=== PATIENT | male | born 1945 | race Caucasian/White ===

== ENCOUNTER 2024-08-21 11:46 | Inpatient (IN) | payer MEDICARE ==
[2024-08-21 12:26] LABS: Basophils # (A) 0.05 10*3/uL (0.00-0.10); Basophils % (A) 0.6 %; Eosinophils # (A) 0.24 10*3/uL (0.04-0.35); Eosinophils % (A) 3.1 %; HCT 41.3 % (39.6-50.0); Lymphocytes # (A) 1.52 10*3/uL (0.90-5.00); Lymphocytes % (A) 19.3 %; MCH 32.5 pg (27.0-32.0); MCHC 36.3 g/dL (32.0-37.0); MCV 89.6 fL (80.0-97.0); Monocytes # (A) 0.55 10*3/uL (0.20-1.00); Neutrophils # (A) 5.44 10*3/uL (1.80-7.70); Neutrophils % (A) 69.2 %; Platelet Count 188 10*3/uL (140-440); RBC 4.61 10*6/uL (4.40-5.60); RDW 13.1 % (11.5-14.5); WBC 7.86 10*3/uL (4.50-10.00)
[2024-08-21 12:40] LABS: ALT 13 U/L (4-49); AST 17 U/L (17-59); African American GFR (CKD) >90 (>60 ml/min/1.73 sqM); Albumin 3.7 g/dL (3.5-5.0); Alkaline Phosphatase 109 U/L (38-126); Anion Gap 7 mmol/L; Blood Urea Nitrogen 17 mg/dL (9-20); Calcium 9.1 mg/dL (8.4-10.2); Carbon Dioxide 27 mmol/L (22-30); Chloride 104 mmol/L (98-107); Glucose 113 mg/dL (74-99); Magnesium 2.1 mg/dL (1.6-2.3); Non-African American GFR(CKD) 84 (>60 ml/min/1.73 sqM); Potassium 4.3 mmol/L (3.5-5.1); Sodium 138 mmol/L (137-145); Total Bilirubin 0.8 mg/dL (0.2-1.3); Total Protein 6.5 g/dL (6.3-8.2)
--- NOTE | 2024-08-21 12:50 | ED ---
General Adult HPI - General Chief complaint: Neuro Symptoms/Deficit Stated complaint: R side numbness Time Seen by Provider: 08/21/24 12:28 Source: patient, family, RN notes reviewed Mode of arrival: ambulatory Limitations: no limitations - History of Present Illness Initial comments: Patient is a 78-year-old male present to the emergency department with concerns with right sided arm and leg numbness. Patient states there may be some heaviness as well. Symptoms have slowly progressed over the past 10 days or so. No headache. No confusion. No speech problems. No history of similar symptoms previously. No neck or back pain. - Related Data Home Medications Medication Instructions Recorded Confirmed Benzonatate [Tessalon Perles] 100 mg PO TID PRN 08/21/24 08/21/24 Fluticasone Nasal [place] [Flonase 2 spr EA NOSTRIL DAILY 08/21/24 08/21/24 Nasal [place]] Furosemide [Lasix] 20 mg PO BID-W/MEALS 08/21/24 08/21/24 HYDROcodone/APAP 7.5-325MG [[place] 1 tab PO BID PRN 08/21/24 08/21/24 7.5-325] Meloxicam [Mobic] 15 mg PO DAILY 08/21/24 08/21/24 Metoprolol Succinate (ER) [Toprol 25 mg PO DAILY 08/21/24 08/21/24 Xl] Omeprazole 40 mg PO HS 08/21/24 08/21/24 Pravastatin Sodium [Pravachol] 20 mg PO HS 08/21/24 08/21/24 Pregabalin [Lyrica] 100 mg PO TID 08/21/24 08/21/24 traMADol HCL 100 mg PO BID 08/21/24 08/21/24 Allergies Allergy/AdvReac Type Severity Reaction Status Date / Time bee venom protein (honey bee) Allergy "pass out" Verified 08/21/24 14:04 Review of Systems ROS Statement: Those systems with pertinent positive or pertinent negative responses have been documented in the HPI. ROS Other: All systems not noted in ROS Statement are negative. Constitutional: Denies: fever Eyes: Denies: eye pain ENT: Denies: ear pain Respiratory: Denies: cough Cardiovascular: Denies: chest pain Gastrointestinal: Denies: abdominal pain Neurological: Reports: as per HPI Past Medical History Past Medical History: Coronary Artery Disease (CAD), Chest Pain / Angina, Heart Failure History of Any Multi-Drug Resistant Organisms: None Reported Past Surgical History: Joint Replacement, Orthopedic Surgery Additional Past Surgical History / Comment(s): Nose, tongue Past Psychological History: No Psychological Hx Reported Smoking Status: Never smoker Past Alcohol Use History: None Reported Past Drug Use History: None Reported General Exam Limitations: no limitations General appearance: alert, in no apparent distress Head exam: Present: atraumatic Eye exam: Present: normal appearance, PERRL, EOMI ENT exam: Present: normal oropharynx Neck exam: Present: normal inspection Respiratory exam: Present: normal lung sounds bilaterally Cardiovascular Exam: Present: regular rate, irregular rhythm GI/Abdominal exam: Present: soft. Absent: tenderness Extremities exam: Present: normal inspection Neurological exam: Present: alert, oriented X3, CN II-XII intact Expanded Neurological exam: Present: protecting the airway Patient oriented to: Present: person, place, time Speech: Present: fluid speech Cranial nerves: EOM's Intact: Normal, Facial Sensation: Normal Cerebellar function: Finger to Nose: Normal Sensory exam: Upper Extremity Light Touch: Normal, Lower Extremity Light Touch: Normal Motor strength exam: RUE: 5, LUE: 5, RLE: 4, LLE: 5 Eye Response: (4) open spontaneously Motor Response: (6) obeys commands Verbal Response: (5) oriented Psychiatric exam: Present: normal affect, normal mood Skin exam: Present: normal color Course Vital Signs 08/21/24 08/21/24 08/21/24 11:55 12:49 13:17 Temperature 98.2 F 97.8 F Pulse Rate 66 83 76 Respiratory 20 16 16 Rate Blood Pressure 151/71 104/58 110/96 O2 Sat by Pulse 96 96 95 Oximetry 08/21/24 08/21/24 13:29 13:32 Temperature Pulse Rate 75 79 Respiratory 18 18 Rate Blood Pressure 109/66 112/73 O2 Sat by Pulse 96 95 Oximetry EKG Findings - EKG Results: EKG: interpreted by ERMD (Left axis. Low QRS voltage. Nonspecific T waves. Poor R wave progression.) EKG shows: atrial fibrillation Medical Decision Making - Medical Decision Making Was pt. sent in by a medical professional or institution (, PA, [employer], urgent care, hospital, or [facility]...) When possible be specific @ -No Did you speak to anyone other than the patient for history (EMS, parent, family, police, friend...)? What history was obtained from this source @ - is present helps right history including patient's past history and onset of symptoms Did you review nursing and triage notes (agree or disagree)? Why? @ -I reviewed and agree with nursing and triage notes Were old charts reviewed (outside hosp., previous admission, EMS record, old EKG, old radiological studies, urgent care reports/EKG's, [facility] records)? Report findings @ -No old charts were reviewed Differential Diagnosis (chest pain, altered mental status, abdominal pain women, abdominal pain men, vaginal bleeding, weakness, fever, dyspnea, syncope, headache, dizziness, GI bleed, back pain, seizure, CVA, palpatations, mental health, musculoskeletal)? @ -Differential Weakness: Hypoglycemia, shock, sepsis, hyponatremia, anemia, infection, MD, ETOH, adverse medicine reaction, overdose, stroke, this is not meant to be an all-inclusive l ist. EKG interpreted by me (3pts min.). @ -As above X-rays interpreted by me (1pt min.). @ -Chest x-ray shows no acute process CT interpreted by me (1pt min.). @ -CT scan of the brain without acute abnormality U/S interpreted by me (1pt. min.). @ -None done What testing was considered but not performed or refused? (CT, X-rays, U/S, labs)? Why? @ -None What meds were considered but not given or refused? Why? @ -Patient is not a candidate for tenecteplase secondary to last known well greater than 4.5 hours. Did you discuss the management of the patient with other professionals (professionals i.e. , PA, [employer], lab, RT, psych nurse, social professionals, trial lawyer, teacher, administrative services officer, block and case maker)? Give summary @ -Case was discussed with Dr. Bradley who will admit covering Dr. Elder me Was smoking cessation discussed for >3mins.? @ -No Was critical care preformed (if so, how long)? @ -No Were there social determinants of health that impacted care today? How? (Homelessness, low income, unemployed, alcoholism, drug addiction, transportation, low edu. Level, literacy, decrease access to med. care, nursing home, rehab)? @ -No Was there de-escalation of care discussed even if they declined (Discuss DNR or withdrawal of care, Hospice)? DNR status @ -No What co-morbidities impacted this encounter? (DM, HTN, Smoking, COPD, CAD, Cancer, CVA, ARF, Chemo, Hep., AIDS, mental health diagnosis, sleep apnea, morbid obesity)? @ -History of A-fib Was patient admitted / discharged? Hospital course, mention meds given and route, prescriptions, significant lab abnormalities, going to OR and other pertinent info. @ -Patient presents with progressive right leg weakness over 7 to 10 days. Etiology unclear however there is concern for mild stroke symptoms. Patient will be admitted with neuro consult. Admission orders written. Patient and family updated. Undiagnosed new problem with uncertain prognosis? @ -No Drug Therapy requiring intensive monitoring for toxicity (Heparin, Nitro, Insu jarret, Cardizem)? @ -No Were any procedures done? @ -No Diagnosis/symptom? @ -Leg weakness Acute, or Chronic, or Acute on Chronic? @ -Acute Uncomplicated (without systemic symptoms) or Complicated (systemic symptoms)? @ -Default Side effects of treatment? @ -No Exacerbation, Progression, or Severe Exacerbation? @ -No Poses a threat to life or bodily function? How? (Chest pain, USA, MD, pneumonia, PE, COPD, DKA, ARF, appy, cholecystitis, CVA, Diverticulitis, Homicidal, Suicidal, threat to staff... and all critical care pts) @ -No - Lab Data Result diagrams: 08/21/24 11:53 08/21/24 11:53 Lab Results 08/21/24 08/21/24 08/21/24 Range/Units 11:53 11:53 11:53 WBC 7.86 (4.50-10.00) 10*3/uL RBC 4.61 (4.40-5.60) 10*6/uL Hgb 15.0 (13.0-17.0) g/dL Hct 41.3 (39.6-50.0) % MCV 89.6 (80.0-97.0) fL MCH 32.5 H (27.0-32.0) pg MCHC 36.3 (32.0-37.0) g/dL Plt Count 188 (140-440) 10*3/uL MPV 10.0 (9.5-12.2) fL Immature Gran % (Auto) 0.8 % Neutrophils % 69.2 % Lymphocytes % 19.3 % Monocytes % 7.0 % Eosinophils % 3.1 % Basophils % 0.6 % Immature Gran # 0.06 H (0.00-0.04) 10*3/uL Neutrophils # 5.44 (1.80-7.70) 10*3/uL Lymphocytes # 1.52 (0.90-5.00) 10*3/uL Monocytes # 0.55 (0.20-1.00) 10*3/uL Eosinophils # 0.24 (0.04-0.35) 10*3/uL Basophils # 0.05 (0.00-0.10) 10*3/uL PT 10.8 (10.0-12.5) sec INR 1.0 (<1.2) APTT 24.6 (22.0-30.0) sec Sodium 138 (137-145) mmol/L Potassium 4.3 (3.5-5.1) mmol/L Chloride 104 (98-107) mmol/L Carbon Dioxide 27 (22-30) mmol/L Anion Gap 7 mmol/L BUN 17 (9-20) mg/dL Creatinine 0.83 (0.66-1.25) mg/dL Est GFR (CKD-EPI)AfAm >90 (>60 ml/min/1.73 sqM) Est GFR (CKD-EPI)NonAf 84 (>60 ml/min/1.73 sqM) Glucose 113 H (74-99) mg/dL Calcium 9.1 (8.4-10.2) mg/dL Magnesium 2.1 (1.6-2.3) mg/dL Total Bilirubin 0.8 (0.2-1.3) mg/dL AST 17 (17-59) U/L ALT 13 (4-49) U/L Alkaline Phosphatase 109 (38-126) U/L Creatine Kinase (55-170) U/L Troponin I (0.000-0.034) ng/mL Total Protein 6.5 (6.3-8.2) g/dL Albumin 3.7 (3.5-5.0) g/dL 08/21/24 08/21/24 08/21/24 Range/Units 11:53 12:51 12:51 WBC (4.50-10.00) 10*3/uL RBC (4.40-5.60) 10*6/uL Hgb (13.0-17.0) g/dL Hct (39.6-50.0) % MCV (80.0-97.0) fL MCH (27.0-32.0) pg MCHC (32.0-37.0) g/dL Plt Count (140-440) 10*3/uL MPV (9.5-12.2) fL Immature Gran % (Auto) % Neutrophils % % Lymphocytes % % Monocytes % % Eosinophils % % Basophils % % Immature Gran # (0.00-0.04) 10*3/uL Neutrophils # (1.80-7.70) 10*3/uL Lymphocytes # (0.90-5.00) 10*3/uL Monocytes # (0.20-1.00) 10*3/uL Eosinophils # (0.04-0.35) 10*3/uL Basophils # (0.00-0.10) 10*3/uL PT 11.2 (10.0-12.5) sec INR 1.0 (<1.2) APTT (22.0-30.0) sec Sodium (137-145) mmol/L Potassium (3.5-5.1) mmol/L Chloride (98-107) mmol/L Carbon Dioxide (22-30) mmol/L Anion Gap mmol/L BUN (9-20) mg/dL Creatinine (0.66-1.25) mg/dL Est GFR (CKD-EPI)AfAm (>60 ml/min/1.73 sqM) Est GFR (CKD-EPI)NonAf (>60 ml/min/1.73 sqM) Glucose (74-99) mg/dL Calcium (8.4-10.2) mg/dL Magnesium (1.6-2.3) mg/dL Total Bilirubin (0.2-1.3) mg/dL AST (17-59) U/L ALT (4-49) U/L Alkaline Phosphatase (38-126) U/L Creatine Kinase 40 L (55-170) U/L Troponin I <0.012 (0.000-0.034) ng/mL Total Protein (6.3-8.2) g/dL Albumin (3.5-5.0) g/dL Disposition Clinical Impression: Right leg weakness Disposition: ADMITTED IP TO THIS HOSP Is patient prescribed a controlled substance at d/c from ED?: No Referrals: Victorino Medrano DO [Primary Care Provider] - 1-2 days Time of Disposition: 15:25
[2024-08-21 12:51] LABS: Partial Thromboplastin Time 24.6 sec (22.0-30.0); Prothrombin Time 10.8 sec (10.0-12.5)
--- NOTE | 2024-08-21 13:10 | XR ---
EXAMINATION TYPE: XR chest 2V DATE OF EXAM: 08/21/2024 1:05 PM COMPARISON: None CLINICAL INDICATION: Male, 78 years old with history of pain, , TECHNIQUE: AP and lateral views FINDINGS: Heart mildly enlarged. Interstitial prominence on the AP view may be due to technique and large body habitus. Otherwise, no consolidation or pleural effusion is seen. The left base is underpenetrated on the frontal view. IMPRESSION: 1. Mild cardiomegaly. 2. Interstitial prominence may be technical due to AP technique and large body habitus. Correlate to exclude mild pulmonary vascular congestion. [facility], Workstation: [facility], 08/21/2024 1:08 PM
--- NOTE | 2024-08-21 13:11 | CT ---
EXAMINATION TYPE: CT brain wo con CT DLP: 1245.4 mGycm, Automated exposure control for dose reduction was used. DATE OF EXAM: 08/21/2024 1:04 PM COMPARISON: MRI brain 01/04/2011 CLINICAL INDICATION:Male, 78 years old with history of Neuro deficit, acute, stroke suspected, Mental status changes. TECHNIQUE: Brain: Multiple axial CT images of the brain were obtained without IV contrast. . Coronal and sagitta l reformats reviewed. FINDINGS: Brain: Extra-axial spaces: No abnormal extra-axial fluid collections. Ventricular system: Within normal limits Cerebral parenchyma: Cerebral atrophy. No acute intraparenchymal hemorrhage or mass effect. The whelan -white junction is well differentiated. Cerebellum: Unremarkable. Mass effect: No evidence of midline shift. Intracranial vasculature: unremarkable Soft tissues: Normal. Calvarium/osseous structures: No depressed skull fracture. Paranasal sinuses and mastoid air cells: The mastoid air cells are clear. Left maxillary sinus 1.8 cm mucous retention cyst. Minimal mucosal thickening of the ethmoid sinuses. Visualized orbits: Bilateral aphakia IMPRESSION: No acute intracranial process. [facility], , 08/21/2024 1:08 PM
[2024-08-21 13:49] LABS: Prothrombin Time 11.2 sec (10.0-12.5)
[2024-08-21] MEDS: PREGABALIN 100 MG CAP PO SCH (15:58)
[2024-08-21] MEDS: ASPIRIN 325 MG TAB PO STA (15:58)
--- NOTE | 2024-08-21 16:14 | US ---
EXAMINATION TYPE: US carotid duplex BILAT DATE OF EXAM: 08/21/2024 COMPARISON: NONE CLINICAL INDICATION: Male, 78 years old with history of Stenosis; TECHNIQUE: Grayscale, color Doppler and spectral Doppler evaluation of the bilateral carotid systems and vertebral arteries. Indirect Doppler criteria was utilized. FINDINGS: EXAM MEASUREMENTS: RIGHT: Peak Systolic Velocity (PSV) cm/sec ----- Right CCA: 66.9 ----- Right ICA: 56.7 ----- Right ECA: 102.7 ICA/CCA ratio: 0.8 RIGHT: End Diastole cm/sec ----- Right CCA: 16.4 ----- Right ICA: 15.4 ----- Right ECA: 4.2 LEFT: Peak Systolic Velocity (PSV) cm/sec ----- Left CCA: 68.4 ----- Left ICA: 84.9 ----- Left ECA: 99.1 ICA/CCA ratio: 1.2 LEFT: End Diastole cm/sec ----- Left CCA: 19.9 ----- Left ICA: 31.8 ----- Left ECA: 7.2 VERTEBRALS (direction of flow): Right Vertebral: Antegrade Left Vertebral: Antegrade Rhythm: Arrhythmia IMPRESSION: Arrhythmia noted by technologist during real-time scanning. Consider 24-hour Holter ritchie toring if this is not known finding. Right: No hemodynamically significant stenosis. Left: No hemodynamically significant stenosis. Criteria for Assigning % of Stenosis / Diameter reduction (Estimation based on the indirect measurements of the internal carotid artery velocities (ICA PSV). 1. Normal (no stenosis)=ICA PSV < 180 cm/s: ratio < 2.0: ICA EDV<40 cm/s. 2. Less than 50% stenosis=ICA PSV < 180 cm/s: ratio < 2.0: ICA EDV<40 cm/s. 3. 50 to 69% stenosis=ICA PSV of 180 to 230 cm/s: ration 2.0 ? 4.0: ICA EDV 40-100 cm/s. PSV 125-180 cm/sec and ICA/CCA PSV Ratio ? 2.0 is also consistent with 50-69% stenosis 4. Greater than 70% stenosis to near occlusion= ICA PSV > 230 cm/s: ratio > 4.0: ICA EDV > 100 cm/s. 5. Near occlusion= ICA PSV velocities may be low or undetectable: variable ratio and ICA EDV. 6. Total occlusion=unable to detect flow. [facility], , 08/21/2024 4:12 PM
--- NOTE | 2024-08-21 17:24 | P.HPIM ---
History of Present Illness H&P Date: 08/21/24 Patient is a 78-year-old male with a history of coronary artery disease, chest pain and heart failure presents to the ER with right-sided arm and leg numbness over the past 10 days. Patient also reports some heaviness as well. Patient was seen at bedside. He reports right-sided arm and leg numbness that started about 10 days ago and it has gotten progressively worse over the past few days. Patient did recently recover from an upper respiratory infection about 2 weeks ago. He also reports right lower extremity heaviness and weakness and has difficulty moving his right leg. Patient has never had sensations like this before. 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 No strokes in the past. Patient also has a history of heart failure and atrial fibrillation which he reports taking metoprolol succinate 25 mg daily for. Patient denies any chest pain, shortness of breath, fever or chills, nausea or vomiting, abdominal pain, diarrhea or constipation, lower extremity swelling or pain. ED documentation reviewed. In the ED patient was treated with aspirin 325 mg p.o. x 1 Vitals on admission temperature 97.8, pulse rate 79, respiratory rate 18, blood pressure 112/73, O2 sat 95% on room air CXR shows mild cardiomegaly and interstitial prominence may be technical due to AP technique and large body habitus. Correlate to exclude mild pulmonary vascular congestion. CT of brain shows no acute intracranial process Ultrasound of bilateral carotids showed no hemodynamically significant stenosis in the right or left carotids. Arrhythmia noted by the technologist during real-time scanning. Consider 24-hour Holter monitoring if this is not a normal finding. Labs on admission show WBC 7.86, hemoglobin 15, hematocrit 41.3, platelet 188, sodium 138, potassium 4.3, chloride 104, BUN 17, creatinine 0.83, glucose 113, AST 17, ALT 13, alkaline phosphatase 109, creatinine kinase 40, troponin less than 0.012 Review of systems: Pertinent positives and negatives as discussed in HPI, a complete review of systems was performed and all other systems are negative. PMH: History of coronary artery disease, heart failure, history of chest pain PSH: Joint replacement and orthopedic surgery FMH: No pertinent family history Allergies: Bee venom protein Social history: Tobacco: Never smoker Alcohol: None reported Recreational drugs: No recent drug use Travel: No travel history Sick contacts: No sick contacts Physical examination: Vital signs reviewed General: nontoxic, no distress, appears at stated age Derm: warm, dry, intact Head: atraumatic, normocephalic, symmetric Eyes: EOMI, anicteric sclera Mouth: no lip lesion, mucus membranes moist Cardiovascular: S1 S2 reg, no murmur Lungs: CTA bilateral, no rhonchi, no rales, no accessory muscle use Abdominal: soft, non-tender to palpation Extremities: No cyanosis, clubbing, or pedal edema. Right upper extremity 4 out of 5 and right lower extremity 4 out of 5 in terms of muscle strength. Left upper extremity 5 out of 5, left lower extremity 5 out of 5 in terms of strength. Sensation to light touch similar on both upper and lower extremity. Neuro: Alert, Oriented, Gross neurological examination did not reveal any focal deficits. Intact cranial nerves. Psych: well appearing, appropriate affect Assessment/Plan: Patient is 78-year-old male with a history of coronary artery disease, chest pain, heart failure presents to the ER with right sided arm and leg numbness over the past 10 days. Patient will be admitted to internal medicine service for further evaluation. Active: #. Right sided arm and leg numbness #. Likely due to acute ischemic stroke Cardiac monitoring Aspirin 325 mg one-time Aspirin 81 mg daily Allow permissive hypertension Ordered brain MRI without contrast Consult neurology Fall precautions Consult PT, OT and speech therapy Atorvastatin 80 mg daily Order echocardiogram with bubble study Lipid panel Morning CBC and CMP TSH Hemoglobin A1c Chronic: #. GERD Continue Protonix 40 mg at bedtime #. Hyperlipidemia Start atorvastatin 80 mg daily #. History of atrial fibrillation Resume metoprolol succinate ER 25 mg daily Start Eliquis 5 mg twice daily #. Congestive heart failure, unknown EF #. CAD Hold Lasix 20 mg twice daily to allow permissive hypertension F: No restrictions E: Replete as needed N: Heart healthy diet A: Ambulatory DVT prophylaxis: Eliquis 5 mg twice daily The patient is admitted with an anticipated less than 2 midnight stay for james luation of right-sided arm and leg numbness CODE STATUS: Patient would like to discuss with spouse first before making decision Discussed with: Patient Anticipated discharge place: Home I have seen and evaluated the patient today. Discussed with the resident and agree with the residents finding and plan as documented in the resident's note. Changes highlighted in blue font. Past Medical History Past Medical History: Coronary Artery Disease (CAD), Chest Pain / Angina, Heart Failure History of Any Multi-Drug Resistant Organisms: None Reported Past Surgical History: Joint Replacement, Orthopedic Surgery Additional Past Surgical History / Comment(s): Nose, tongue Past Psychological History: No Psychological Hx Reported Smoking Status: Never smoker Past Alcohol Use History: None Reported Past Drug Use History: None Reported Medications and Allergies Home Medications Medication Instructions Recorded Confirmed Type Benzonatate [Tessalon Perles] 100 mg PO TID PRN 08/21/24 08/21/24 History Fluticasone Nasal [place] [Flonase 2 spr EA NOSTRIL DAILY 08/21/24 08/21/24 History Nasal [place]] Furosemide [Lasix] 20 mg PO BID-W/MEALS 08/21/24 08/21/24 History HYDROcodone/APAP 7.5-325MG [[place] 1 tab PO BID PRN 08/21/24 08/21/24 History 7.5-325] Meloxicam [Mobic] 15 mg PO DAILY 08/21/24 08/21/24 History Metoprolol Succinate (ER) [Toprol 25 mg PO DAILY 08/21/24 08/21/24 History Xl] Omeprazole 40 mg PO HS 08/21/24 08/21/24 History Pravastatin Sodium [Pravachol] 20 mg PO HS 08/21/24 08/21/24 History Pregabalin [Lyrica] 100 mg PO TID 08/21/24 08/21/24 History traMADol HCL 100 mg PO BID 08/21/24 08/21/24 History Allergies Allergy/AdvReac Type Severity Reaction Status Date / Time bee venom protein (honey bee) Allergy "pass out" Verified 08/21/24 14:04 Physical Exam Vitals: Vital Signs Temp Pulse Resp BP Pulse Ox 08/21/24 13:32 79 18 112/73 95 08/21/24 13:29 75 18 109/66 96 08/21/24 13:17 76 16 110/96 95 08/21/24 12:49 97.8 F 83 16 104/58 96 08/21/24 11:55 98.2 F 66 20 151/71 96 Intake and Output 08/21/24 08/21/24 08/21/24 06:59 14:59 22:59 Other: Weight 112.037 kg Results CBC & Chem 7: 08/21/24 11:53 08/21/24 11:53 Labs: Abnormal Lab Results - Last 24 Hours (Table) 08/21/24 08/21/24 08/21/24 Range/Units 11:53 11:53 12:51 MCH 32.5 H (27.0-32.0) pg Immature Gran # 0.06 H (0.00-0.04) 10*3/uL Glucose 113 H (74-99) mg/dL Creatine Kinase 40 L (55-170) U/L
[2024-08-21] MEDS ORDERED: FUROSEMIDE 20 MG TAB PO SCH (17:30)
[2024-08-21] MEDS: APIXABAN 5 MG TAB PO SCH (20:25)
[2024-08-21] MEDS ORDERED: PRAVASTATIN SODIUM 20 MG TAB PO SCH (21:00)
[2024-08-21] MEDS: PANTOPRAZOLE 40 MG TABLET PO SCH (23:38)
[2024-08-21] MEDS: traMADol 50 MG TAB PO SCH (23:38)
--- NOTE | 2024-08-22 08:19 | MR ---
EXAMINATION TYPE: MR brain wo con DATE OF EXAM: 08/22/2024 COMPARISON: CT brain 1 day earlier HISTORY: Stroke, RT side weakness TECHNIQUE: Multiplanar, multisequence imaging of the brain and brainstem is performed without IV cont rast. FINDINGS: Diffusion weighted images demonstrate tiny 2 mm focus of slight increased signal on the diffusion-librado ghted images with diminished signal on ADC mapping involving subcortical aspect posterior right front al lobe along the primary motor cortex anterior to the central sulcus with subtle focus of increased T2 signal FLAIR axial image 24. There is moderate ventricular and sulcal prominence redemonstrated. There are multifocal and confluen t areas of T2 hyperintensity seen throughout the white matter bilaterally redemonstrated. Midline structures demonstrate normal morphology. The craniocervical junction appears within normal limits. Normal vascular flow voids are present. Bilateral aphakia is seen. Mild mucosal thickening in volving bilateral ethmoid sinuses is present. A 1.8 cm mucous retention cyst or polyp in inferior lef t maxillary sinus is redemonstrated. IMPRESSION: 1. Subtle acute 2 millimeter lacunar infarct posterior right frontal lobe along the premotor cortex. [facility], , 08/22/2024 8:17 AM
[2024-08-22] MEDS ORDERED: ASPIRIN 325 MG TAB PO SCH (09:00)
[2024-08-22] MEDS ORDERED: ENOXAPARIN 40 MG/0.4 ML SYRINGE SQ SCH (09:00)
[2024-08-22 09:51] LABS: ALT 11 U/L (10-49); AST 15 U/L (14-35); Albumin 3.6 g/dL (3.8-4.9); Alkaline Phosphatase 99 U/L (41-126); BUN/Creat Ratio 18.25 Ratio (12.00-20.00); Blood Urea Nitrogen 14.6 mg/dL (9.0-27.0); Calcium 8.4 mg/dL (8.7-10.3); Carbon Dioxide 25.8 mmol/L (21.6-31.8); Chloride 106 mmol/L (96-109); Chol/HDL Ratio 3.73 Ratio; Globulin 2.4 g/dL (1.6-3.3); Glucose 104 mg/dL (70-110); LDL Cholesterol,Calculated 81.3 mg/dL (0.0-131.0); Potassium 4.5 mmol/L (3.5-5.5); Sodium 141 mmol/L (135-145); Total Bilirubin 0.6 mg/dL (0.3-1.2)
[2024-08-22] MEDS: ATORVASTATIN 80 MG TAB PO SCH (10:13)
[2024-08-22] MEDS: ASPIRIN 81 MG PO SCH (10:13)
[2024-08-22] MEDS: FLUTICASONE NASAL 50MCG/SPRAY 16GM BTL EA NOSTRIL SCH (10:14)
[2024-08-22] MEDS: METOPROLOL SUCCINATE (ER) 25 MG TAB.ER.24H PO SCH (10:14)
--- NOTE | 2024-08-22 14:30 | P.PN ---
Subjective Progress Note Date: 08/22/24 Subjective: Patient seen and examined at bedside. No acute events overnight. Pertinent positives and negatives as discussed above, a complete review of systems was performed and all other systems are negative. Vitals Signs Reviewed. General: Nontoxic, no distress, appears at stated age Derm: Warm, dry Head: Atraumatic, normocephalic, symmetric Eyes: EOMI, no lid lag, anicteric sclera Mouth: No lip lesion, mucus membranes moist Cardiovascular: S1S2 reg, no murmur Lungs: CTA bilateral, no rhonchi, no rales, no accessory muscle use Abdominal: Soft, nontender to palpation, no guarding, no appreciable organomegaly Ext: No gross muscle atrophy, no edema, no contractures Neuro: CN II-XI grossly intact, right upper and lower extremity strength 4/5 Psych: Alert, oriented, appropriate affect Data Reviewed Today: Pertinent Labs: Creatinine 0.8, A1c 5.8, TSH 1.37, total cholesterol 149, LDL 81.3 Imaging: MRI brain shows subtle acute 2 mm lacunar infarct posterior right frontal lobe along the premotor cortex. Assessment and Plan: Active: Acute ischemic infarct involving the right frontal lobe - Considering it is a lacunar infarct, possibly thrombotic stroke more likely than embolic, however his symptoms are on the right side of the left - Patient was not on anticoagulation previously due to insurance issues, started on Eliquis 5 twice daily - On aspirin 81 mg daily, atorvastatin 80 mg daily - Okay to continue metoprolol 25 daily - Holding diuretics - Neurology consulted, pending recommendations - Continue telemetry monitoring and neurochecks - Echocardiogram pending Chronic: Neuropathy GERD Hypertension DVT ppx: Eliquis Code status: Full code Anticipated discharge place: Pending clinical course Anticipated discharge time: Pending clinical course Patient status to be changed to inpatient. Objective - Vital Signs Vital signs: Vital Signs Temp 97.5 F L 08/22/24 07:00 Pulse 81 08/22/24 07:00 Resp 16 08/22/24 07:00 BP 116/72 08/22/24 07:00 Pulse Ox 97 08/22/24 07:00 FiO2 Intake & Output 08/21/24 08/22/24 08/22/24 18:59 06:59 18:59 Intake Total 118 Balance 118 Weight 112.037 kg Intake: Oral 118 Other: Voiding Method Bedside Commode Bedside Commode # Voids 2 # Bowel Movements 1 - Labs CBC & Chem 7: 08/21/24 11:53 08/22/24 06:22 Labs: Abnormal Lab Results - Last 24 Hours (Table) 08/22/24 Range/Units 06:22 Calcium 8.4 L (8.7-10.3) mg/dL Total Protein 6.0 L (6.2-8.2) g/dL Albumin 3.6 L (3.8-4.9) g/dL Albumin/Globulin Ratio 1.50 L (1.60-3.17) Ratio HDL Cholesterol 39.90 L (40.00-60.00) mg/dL
--- NOTE | 2024-08-22 15:11 | CA ---
Transthoracic Echo Report Name: Kolby Tom Age: 78 Gender: M : 1945 Exam Date: 08/22/2024 09:21 Exam Location: [facility] Ht (in): 70 Wt (lb): 247 Ordering Physician: Vladimir Alvarez MD Attending/Referring Phys: [id number], Kim Hog Room Supervisor Claudia Candelaria RDCS Procedure CPT: Indications: stroke Cardiac Hx: Technical Quality: Technically difficult study Contrast 1: Total Dose (mL): Contrast 2: Total Dose (mL): MEASUREMENTS (Male / Female) Normal Values 2D ECHO LV Diastolic Diameter PLAX 5.1 cm 4.2 - 5.9 / 3.9 - 5.3 cm LV Systolic Diameter PLAX 3.6 cm IVS Diastolic Thickness 1.6 cm 0.6 - 1.0 / 0.6 - 0.9 cm LVPW Diastolic Thickness 1.6 cm 0.6 - 1.0 / 0.6 - 0.9 cm LV Relative Wall Thickness 0.6 RV Internal Dim ED PLAX 3.8 cm LA Systolic Diameter LX 5.0 cm 3.0 - 4.0 / 2.7 - 3.8 cm LA Volume 181.1 cm??? 18 - 58 / 22 - 52 cm??? LA Volume Index 75.7 cm???/m??? 16 - 28 cm???/m??? M-MODE Aortic Root Diameter MM 3.3 cm AV Cusp Separation MM 2.0 cm DOPPLER AV Peak Velocity 125.2 cm/s AV Peak Gradient 6.3 mmHg MV Area PHT 3.4 cm??? MV Deceleration Time 238.0 ms TR Peak Velocity 264.8 cm/s TR Peak Gradient 28.1 mmHg Right Ventricular Systolic Press 31.6 mmHg FINDINGS Left Ventricle Left ventricular ejection fraction is estimated at 40-45 %. Left ventricular cavity size normal. Moderate concentric left ventricular hypertrophy. Right Ventricle Moderate right ventricular dilatation. Right ventricular systolic pressure within normal limits. Right Atrium Right atrium not well visualized. Negative agitated saline bubble study for right to left shunt. However color doppler indicates PFO Left Atrium Moderately increased left atrial diameter. Severely increased left atrial volume. Severely increased left atrial area. No left atrial thrombus or mass present. Mitral Valve Structurally normal mitral valve. No evidence for mitral valve prolapse. No mitral stenosis. Trace to mild mitral regurgitation. Aortic Valve Trileaflet aortic valve. No aortic valve stenosis or regurgitation. Tricuspid Valve Structurally normal tricuspid valve. Mild tricuspid regurgitation. Pulmonic Valve Structurally normal pulmonic valve. No pulmonic regurgitation. Pericardium Small pericardial effusion by LV posterior wall Aorta Normal size aortic root and proximal ascending aorta. CONCLUSIONS Reason for echo: Stroke Increased LV mass with left ventricular systolic function of 40 to 45% Moderate RV enlargement biatrial enlargement No [id number]-[id number] shunting noted on bubble study Left or right Doppler flow signal suggests small PFO with irsq-aj-vbeju shunt Previewed by: Dr. Carlos Sneed MD (Electronically Signed) Final Date: 22 Aug 2024 15:10
--- NOTE | 2024-08-22 21:02 | P.CNNES ---
History of Present Illness Consult date: 08/22/24 Requesting physician: Justin Renteria Reason for Consult: R leg weak History of Present Illness: Patient is a 78-year-old male came to the hospital yesterday at 11:46 AM for right-sided weakness. Patient states on 08/17/2024 he was walking around his house, and felt like there were weights on his feet. He saw his primary care physician, who felt it was an old problem. The next day on Saturday it got worse and on Saturday it got further slightly worse. On Saturday he saw the chiropractor around 12 to 1 PM. After adjustment, he was able to walk out of the chiropractor office. However morning he felt heaviness in the feet again. On Saturday, which is yesterday, in the morning it got worse. He was still able to walk to the car, dressed himself, although his helped him getting downstairs. She brought him to the hospital. Later he mentioned that he was having weakness of the right arm and right leg. He is noticing that he is dragging his right leg. The left side is perfectly fine. He denies any slurred speech, facial droop or visual disturbance.. He does have some shaking of the right arm for last 20 years. Vital signs on arrival blood pressure 151/71, pulse rate 66 temperature 98.2. Blood test shows normal CBC, PT PTT, normal CMP. TSH is normal. CT head showed no acute intracranial process. I personally reviewed CT head, agree with the findings. Chest x-ray showed mild cardiomegaly. Interstitial prominence may be technical due to AP technique and large body habitus. Correlate to exclude mild pulmonary vascular congestion. EKG showed atrial fibrillation with left axis deviation. Patient has history of diabetes for last 4 to 5 years, currently on Ozempic. He denies hypertension although he gets low blood pressure. Denies any hyperlipidemia. He has never smoked, does not drink alcohol. Home medications include tramadol 100 mg twice daily, omeprazole, [place], metoprolol, pravastatin 20 mg, Lyrica 100 mg 3 times daily, Lasix. Patient is not taking any antiplatelet or anticoagulant medication at home. Patient states he has history of rheumatic fever from scarlet fever long time ago. He has developed heart murmur since then. He has been in and out of atrial fibrillation since 2011. Patient used to be on Pradaxa since 2011 but it was discontinued early this year by his primary physician. He was started on Cardizem. He does not believe that he has seen direct support specialist for that. Patient has history of chronic right-sided lower back pain for years. Also has pain in the right shoulder for some time. He had 2 knee surgeries done. Review of Systems All pertinent positive and negative review of systems mentioned in the HPI. Otherwise unremarkable. Past Medical History Past Medical History: Coronary Artery Disease (CAD), Chest Pain / Angina, Heart Failure History of Any Multi-Drug Resistant Organisms: None Reported Past Surgical History: Joint Replacement, Orthopedic Surgery Additional Past Surgical History / Comment(s): Nose, tongue Past Psychological History: No Psychological Hx Reported Smoking Status: Never smoker Past Alcohol Use History: None Reported Past Drug Use History: None Reported Medications and Allergies Home Medications Medication Instructions Recorded Confirmed Type Benzonatate [Tessalon Perles] 100 mg PO TID PRN 08/21/24 08/21/24 History Fluticasone Nasal [place] [Flonase 2 spr EA NOSTRIL DAILY 08/21/24 08/21/24 History Nasal [place]] Furosemide [Lasix] 20 mg PO BID-W/MEALS 08/21/24 08/21/24 History HYDROcodone/APAP 7.5-325MG [[place] 1 tab PO BID PRN 08/21/24 08/21/24 History 7.5-325] Meloxicam [Mobic] 15 mg PO DAILY 08/21/24 08/21/24 History Metoprolol Succinate (ER) [Toprol 25 mg PO DAILY 08/21/24 08/21/24 History Xl] Omeprazole 40 mg PO HS 08/21/24 08/21/24 History Pravastatin Sodium [Pravachol] 20 mg PO HS 08/21/24 08/21/24 History Pregabalin [Lyrica] 100 mg PO TID 08/21/24 08/21/24 History traMADol HCL 100 mg PO BID 08/21/24 08/21/24 History Allergies Allergy/AdvReac Type Severity Reaction Status Date / Time bee venom protein (honey bee) Allergy "pass out" Verified 08/21/24 14:04 Physical Examination - Vital Signs Vital Signs: Vital Signs Temp Pulse Pulse Resp BP BP BP 08/22/24 14:00 98 F 50 L 16 97/62 08/22/24 07:00 97.5 F L 81 16 116/72 08/22/24 03:40 98.1 F 75 17 101/57 08/21/24 18:50 97.7 F 68 18 110/67 08/21/24 18:16 73 18 100/68 Pulse Ox 08/22/24 14:00 95 08/22/24 07:00 97 08/22/24 03:40 96 08/21/24 18:50 97 08/21/24 18:16 97 Intake and Output 08/22/24 08/22/24 08/22/24 06:59 14:59 22:59 Intake Total 236 Balance 236 Intake: Oral 236 Other: Voiding Method Bedside Commode Bedside Commode # Voids 2 2 # Bowel Movements 1 Patient is an elderly male, in no acute distress. Patient is alert awake oriented to time place and person. Speech and language functions are normal. Patient can name and repeat very well. No aphasia or dysarthria. Attention, concentration and fund of knowledge is adequate. On cranial nerve examination, pupils are equal, round and reacting to light, visual gatica are full on confrontation, with no neglect on double simultaneous stimulation. Extraocular muscles are intact with no nystagmus. Face is symmetr ic, tongue protrudes to the midline. Palatal elevation and sensation normal, hearing and shoulder shrug normal, facial sensation normal. On muscle strength testing, there is no pronator drift and the strength is normal in arms and legs distally and proximally, except right hip flexion which is about 5-, normal on the left. Upper extremities are 5/5 bilaterally. Deep tendon reflexes are asymmetric (right/left) biceps 2/2+, brachioradialis 2+/1+, knees 3/3, ankles 2+/1+ plantar is definitely up on the right, questionable up on the left as well. Sensory to touch is equal with no neglect on double simultaneous stimulation. Patient does have some subjective numbness and tingling of the fingertips. Cerebellar function showed no ataxia for cqycmf-sj-cjgo testing. No ataxia for uvcb-do-oovj testing on either side. Tone and bulk of muscles normal. Gait deferred.. On general examination, there is no carotid bruit or murmur, S1-S2 audible. Chest is clear on consultation. Abdomen is soft nontender. No organomegaly, bowel sounds present. Peripheral pulses are present. No peripheral edema. Results - Laboratory Findings CBC and BMP: 08/21/24 11:53 08/22/24 06:22 Abnormal Lab Findings: Abnormal Labs 08/21/24 08/21/24 08/21/24 11:53 11:53 12:51 MCH 32.5 H Immature Gran # 0.06 H Glucose 113 H Calcium Creatine Kinase 40 L Total Protein Albumin Albumin/Globulin Ratio HDL Cholesterol 08/22/24 06:22 MCH Immature Gran # Glucose Calcium 8.4 L Creatine Kinase Total Protein 6.0 L Albumin 3.6 L Albumin/Globulin Ratio 1.50 L HDL Cholesterol 39.90 L Assessment and Plan Assessment: * 78-year-old male came with subjective weakness of the right arm and right leg without involvement of the facial region or speech. MRI of the brain revealed subtle acute 2 mm lacunar infarct posterior right frontal lobe along the premotor cortex. This is likely clinically asymptomatic, as his symptoms are also on the ipsilateral side. Patient does have somewhat brisk reflexes, slight head drop. Rule out spinal canal stenosis. * Atrial fibrillation, started on Eliquis. * Diabetes * History of rheumatic fever/scarlet fever as a child. * Coronary artery disease * Congestive heart failure. * Chronic low back pain, right shoulder pain. Plan: MRI of the brain without contrast, revealed subtle acute 2 mm lacunar infarct posterior right frontal lobe along the premotor cortex. I personally reviewed MRI, agree with the findings. It appears this stroke is clinically asymptomatic because symptoms are also on the ipsilateral side. Patient was not a candidate for TNK as he came outside the window for TNK. We will check MRI of the cervical and lumbar spine to evaluate for spinal stenosis. 2-D echo revealed increased LV mass with left ventricular systolic function of 40 to 45%. Moderate concentric LVH, moderate RV enlargement, biatrial enlargement. No ruluk-ir-blsd shunting noted on bubble study. Moderately increased left atrial diameter. No left atrial thrombus or mass. However in the impression it mentions left or right Doppler flow signal suggest small PFO with [id number]-wu-dymmc shunt. Patient has been started on Eliquis. No mitral valve stenosis. Carotid Doppler revealed no hemodynamically significant stenosis on either side. Antegrade flow in both vertebral arteries. Fasting a.m. lipid panel cholesterol 149, LDL 81, HDL 39, triglycerides 139. Patient placed on Lipitor 80 mg daily. At home patient was on pravastatin 20 mg. Hemoglobin A1c 5.8 Permissive hypertension for next 24-48 hours. Check B12, folate, MMA, B6 Patient has been started on Eliquis 5 mg twice daily, patient also on aspirin 81 mg daily.. Neuro checks every 4 hours. Telemetry monitoring rule out any arrhythmia PT, OT, speech therapy DVT prophylaxis: Patient on Eliquis. Neurology will continue to follow. Thank you for the consult. Time with Patient: Greater than 30
[2024-08-22] MEDS ORDERED: ACETAMINOPHEN TAB 325 MG TAB PO PRN (21:29)
[2024-08-22] MEDS: MELATONIN 5 MG TABLET PO PRN (21:58)
--- NOTE | 2024-08-23 13:53 | P.PN ---
Subjective Progress Note Date: 08/23/24 Subjective: Patient seen and examined at bedside. No acute events overnight. Still having right-sided weakness. Difficulty with getting out of the bed without assistance. Pertinent positives and negatives as discussed above, a complete review of systems was performed and all other systems are negative. Vitals Signs Reviewed. General: Nontoxic, no distress, appears at stated age Derm: Warm, dry Head: Atraumatic, normocephalic, symmetric Eyes: EOMI, no lid lag, anicteric sclera Mouth: No lip lesion, mucus membranes moist Cardiovascular: S1S2 reg, no murmur Lungs: CTA bilateral, no rhonchi, no rales, no accessory muscle use Abdominal: Soft, nontender to palpation, no guarding, no appreciable organomegaly Ext: No gross muscle atrophy, no edema, no contractures Neuro: CN II-XI grossly intact, right upper and lower extremity strength 4/5 Psych: Alert, oriented, appropriate affect Data Reviewed Today: Pertinent Labs: B12 377, folic acid 6.7 Imaging: No new imaging Assessment and Plan: Active: Acute ischemic infarct involving the right frontal lobe, asymptomatic Right-sided weakness Mild cardiomyopathy, EF 40 to 45%, likely ischemic Small PFO - Considering it is a lacunar infarct, possibly thrombotic stroke more likely than embolic, however his symptoms are on the right side of the left, neurology getting MRI cervical spine and lumbar spine - Patient was not on anticoagulation previously due to insurance issues, started on Eliquis 5 twice daily - On aspirin 81 mg daily, atorvastatin 80 mg daily - Okay to continue metoprolol 25 daily - Holding diuretics - Neurology consulted, pending recommendations - Continue telemetry monitoring and neurochecks Chronic: Neuropathy GERD Hypertension DVT ppx: Eliquis Code status: Full code Anticipated discharge place: Pending clinical course Anticipated discharge time: Pending clinical course Patient status to be changed to inpatient. Objective - Vital Signs Vital signs: Vital Signs Temp 98.4 F 08/23/24 07:31 Pulse 55 L 08/23/24 07:31 Resp 16 08/23/24 07:31 BP 97/65 08/23/24 07:31 Pulse Ox 99 08/23/24 07:31 FiO2 Intake & Output 08/22/24 08/23/24 08/23/24 18:59 06:59 18:59 Intake Total 236 1080 360 Output Total 165 Balance 236 1080 195 Intake: Oral 236 1080 360 Output: Urine 165 Other: Voiding Method Bedside Commode Bedside Commode Bedside Commode Urinal Urinal # Voids 3 2 # Bowel Movements 1 - Labs CBC & Chem 7: 08/21/24 11:53 08/22/24 06:22
--- NOTE | 2024-08-24 12:13 | XR ---
EXAMINATION TYPE: XR Hip RT and AP Pelvis DATE OF EXAM: 08/24/2024 12:08 PM COMPARISON: None. CLINICAL INDICATION: Male, 78 years old with history of right hip pain, pain TECHNIQUE: AP pelvis view(s) obtained. Two-view right hip FINDINGS: Femoral head articulates with the acetabulum. Joint space is preserved. No acute fractures or disloca tions evident. Left femoral head articulates with the acetabulum. Symphysis pubis sacroiliac joints a re patent. Degenerative changes noted on the left sacroiliac joint. Follow up exams can be performed as clinically indicated IMPRESSION: 1. No acute osseous abnormalities right hip [facility], , 08/24/2024 12:10 PM
--- NOTE | 2024-08-24 15:16 | P.PN ---
Subjective Progress Note Date: 08/24/24 Principal diagnosis: 08/24/24: Patient seen and examined at bedside today. He complains of pain on the right hip from a fall he sustained a few days ago when he started having the lower extremity weakness. Denies any other complaints. No acute events ove rnight. Review of systems: Pertinent positives and negatives as discussed in HPI, a complete review of systems was performed and all other systems are negative. Vitals: Signs Reviewed Physical examination: General: nontoxic, no distress, appears at stated age Derm: warm, dry, intact Head: atraumatic, normocephalic, symmetric Eyes: EOMI, anicteric sclera Mouth: no lip lesion, mucus membranes moist Cardiovascular: S1 S2 reg, no murmur Lungs: CTA bilateral, no rhonchi, no rales, no accessory muscle use Abdominal: soft, non-tender to palpataion Extremities: No cyanosis, clubbing, or pedal edema. Neuro: Alert, Oriented, Right upper and lower extremity strength 4 out of 5, Left upper and lower extremity strength 5 out of 5, Sensation to light touch similar on both upper and lower extremity. Psych: well appearing, appropriate affect Data Reviewed Today: Labs: No new labs today Imaging: Hip and pelvis x-ray shows no acute osseous abnormalities Assessment/Plan: Patient is 78-year-old male with a history of coronary artery disease, chest pain, heart failure presents to the ER with right sided arm and leg numbness over the past 10 days. Patient will be admitted to internal medicine service for further evaluation. Active: #. Acute ischemic infarct of the right frontal lobe, asymptomatic #. Right sided weakness #. Mild cardiomyopathy, EF 40-45% #. Small patent [place] Brain MRI shows acute 2 mm lacunar infarct posterior right frontal lobe along the premotor cortex Continue Aspirin 81 mg daily, atorvastatin 80 mg p.o. daily Hold diuretics Continue telemetry monitoring Fall precautions PT, OT and speech therapy consulted Considering it is a lacunar infarct, possibly thrombotic stroke more likely than embolic, however his symptoms are on the right side instead of the left Neurology is following, recommend getting MRI cervical spine and lumbar spine Chronic: #. GERD #. Hyperlipidemia #. History of atrial fibrillation #. CAD #. Neuropathy #. Hypertension Continue Protonix 40 mg at bedtime, atorvastatin 80 mg daily, metoprolol succinate ER 25 mg daily, Eliquis 5 mg twice daily F: None E: Replete as needed N: Regular diet A: Ambulatory DVT prophylaxis: Eliquis 5 mg twice daily Code status: Full Code Anticipated discharge place: Pending clinical course Anticipated discharge time: Pending clinical course Dictation was produced using [employer] dictation software. please excuse any grammatical, word or spelling errors. Cassius aBhena MD PGY-1 IM I have seen and evaluated the patient today. Discussed with the resident and agree with the residents finding and plan as documented in the resident's note. Changes highlighted in blue font. Objective - Vital Signs Vital signs: Vital Signs Temp 97.5 F L 08/24/24 14:00 Pulse 89 08/24/24 14:00 Resp 16 08/24/24 14:00 BP 98/58 08/24/24 14:00 Pulse Ox 95 08/24/24 14:00 FiO2 Intake & Output 08/23/24 08/24/24 08/24/24 18:59 06:59 18:59 Intake Total 581 221 Output Total 165 Balance 416 221 Intake: Oral 581 221 Output: Urine 165 Other: Voiding Method Bedside Commode Bedside Commode Bedside Commode Urinal Urinal Urinal # Voids 1 - Labs CBC & Chem 7: 08/21/24 11:53 08/22/24 06:22
[2024-08-25] MEDS: polyethylene glycoL 3350 17 GM POWD.PACK PO SCH (08:06)
--- NOTE | 2024-08-25 12:11 | P.PN ---
Subjective Progress Note Date: 08/25/24 Principal diagnosis: 08/24/24: Patient seen and examined at bedside today. He complains of pain on the right hip from a fall he sustained a few days ago when he started having the lower extremity weakness. Denies any other complaints. No acute events over night. 08/25/24: Patient evaluated at bedside. No acute events overnight. He feels that his right upper extremity is more weak today and reports pain in the right buttock area from the fall. Review of systems: Pertinent positives and negatives as discussed in HPI, a complete review of systems was performed and all other systems are negative. Vitals: Signs Reviewed and stable Physical examination: General: nontoxic, no distress, appears at stated age Derm: warm, dry, intact Head: atraumatic, normocephalic, symmetric Eyes: EOMI, anicteric sclera Mouth: no lip lesion, mucus membranes moist Cardiovascular: S1 S2 reg, no murmur Lungs: CTA bilateral, no rhonchi, no rales, no accessory muscle use Abdominal: soft, non-tender to palpataion Extremities: No cyanosis, clubbing, or pedal edema. Neuro: Alert, Oriented, Right upper and lower extremity strength 4 out of 5, Left upper and lower extremity strength 5 out of 5, Sensation to light touch similar on both upper and lower extremity. Psych: well appearing, appropriate affect Data Reviewed Today: Labs: No new labs today Imaging: No new imaging Assessment/Plan: Patient is 78-year-old male with a history of coronary artery disease, chest pain, heart failure presents to the ER with right sided arm and leg numbness over the past 10 days. Patient will be admitted to internal medicine service for further evaluation. Active: #. Acute ischemic infarct of the right frontal lobe, asymptomatic #. Right sided weakness #. Mild cardiomyopathy, EF 40-45% #. Small patent riley ovale Brain MRI shows acute 2 mm lacunar infarct posterior right frontal lobe along the premotor cortex Continue Aspirin 81 mg daily, atorvastatin 80 mg p.o. daily Hold diuretics Continue telemetry monitoring Fall precautions PT, OT and speech therapy consulted Considering it is a lacunar infarct, possibly thrombotic stroke more likely than embolic, however his symptoms are on the right side instead of the left Neurology is following Pending MRI cervical spine and lumbar spine #. Hip pain secondary to fall due to weakness Hip and Pelvix Xray showed no acute osseous abnormalities Home med Mobic 15 mg PO daily resumed #. Constipation MiraLAX added Chronic: #. GERD #. Hyperlipidemia #. History of atrial fibrillation #. CAD #. Neuropathy #. Hypertension Continue Protonix 40 mg at bedtime, atorvastatin 80 mg daily, metoprolol succinate ER 25 mg daily, Eliquis 5 mg twice daily, Furosemide 20 mg PO BID, Pregabalin 100 mg PO TID F: None E: Replete as needed N: Regular diet A: Ambulatory DVT prophylaxis: Eliquis 5 mg twice daily Code status: Full Code Anticipated discharge place: Pending clinical course Anticipated discharge time: Pending clinical course Dictation was produced using [employer] dictation software. please excuse any grammatical, word or spelling errors. Cassius Bahena MD PGY-1 IM I have seen and evaluated the patient today. Discussed with the resident and agree with the residents finding and plan as documented in the resident's note. Changes highlighted in blue font. Objective - Vital Signs Vital signs: Vital Signs Temp 97.4 F L 08/25/24 07:09 Pulse 87 08/25/24 07:09 Resp 17 08/25/24 07:09 BP 137/75 08/25/24 07:09 Pulse Ox 95 08/25/24 07:09 FiO2 Intake & Output 08/24/24 08/25/24 08/25/24 18:59 06:59 18:59 Intake Total 221 Output Total 300 Balance 221 -300 Intake: Oral 221 Output: Urine 300 Other: Voiding Method Bedside Commode Bedside Commode Urinal Urinal # Bowel Movements 0 - Labs CBC & Chem 7: 08/21/24 11:53 08/22/24 06:22
--- NOTE | 2024-08-25 13:45 | MR ---
EXAMINATION TYPE: MR cspine/lspine wo con DATE OF EXAM: 08/25/2024 1:14 PM COMPARISON: CLINICAL INDICATION: Male, 78 years old with history of Weakness, gait imbalance, Right leg weakness, gait imbalance. TECHNIQUE: Multiplanar MultiSpin echo imaging of the cervical spine was performed. FINDINGS: C2-C3: No evidence for degenerative disc disease. No disc bulge/herniation or protrusion. No Canal stenosis. Foramina are patent bilaterally. C3-C4: Severe disc desiccation with posterior disc bulge and subligamentous herniation. Moderate effa cement of the ventral thecal sac with cord contact and mild thinning with moderate central stenosis. Compressive myelopathy immediately present. Severe right foraminal encroachment with mild left forami nal encroachment. C4-C5: Severe disc desiccation with broad-based posterior disc herniation. Severe thinning of the cer vical spinal cord with increased signal compatible with compressive myelopathy. Severe central stenos is and bilateral foraminal encroachment. C5-C6: No evidence for degenerative disc disease. No disc bulge/herniation or protrusion. No Canal stenosis. Foramina are patent bilaterally. C6-C7: No evidence for degenerative disc disease. No disc bulge/herniation or protrusion. No Canal stenosis. Foramina are patent bilaterally. C7-T1: Vrvm-dl-[id number] disc desiccation with extruded disc herniation posteriorly centrally. Extrude d disc measures 6.6 x 5.0 mm. Distortion of ventral spinal cord at this level without cord contact. Cervical segments are intact. There is normal alignment. Cervical spinal cord is of normal signal. Craniovertebral junction relationships are within normal limits. IMPRESSION: 1. Multilevel degenerative disc disease as discussed. 2. Central stenosis with thinning of the cervical spinal cord and compressing myelopathy at C3-4 and C4-5 as discussed above. 3. Extruded disc herniation is noted at C7-T1. EXAMINATION TYPE: MR cspine/lspine wo con DATE OF EXAM: 08/25/2024 1:14 PM COMPARISON: None. CLINICAL INDICATION: Male, 78 years old with history of Weakness, gait imbalance, Right leg weakness, gait imbalance. TECHNIQUE: Multiplanar, MultiSpin echo imaging of the lumbar spine was performed. FINDINGS: L1-L2: Mild disc desiccation posterior disc bulge. Effacement of ventral thecal sac without definite stenosis. Foramina are patent. L2-L3: Mild/moderate disc desiccation and minimal posterior disc bulge. Constriction of the thecal sa c and borderline central stenosis. Mild bilateral foraminal encroachment. L3-L4: Moderate disc desiccation with posterior disc bulge and annular tear. Effacement of ventral th ecal sac. Right lateral recess stenosis. Moderate bilateral foraminal encroachment. No central stenos is seen with certainty. L4-L5: Moderate disc desiccation and moderate posterior disc bulge. Hypertrophic changes of the facet joints result in severe central stenosis. Moderate bilateral foraminal encroachment. L5-S1: Normal disc appearance without desiccation. No herniation, protrusion or disc bulging. No ca nal stenosis is present. Foramina are patent bilaterally. Lumbar segments are intact. No paraspinal masses are identified. Conus medullaris has a normal appe arance. IMPRESSION: 1. Multilevel degenerative disc disease. 2. Severe central stenosis at L4-5. See above. [facility], , 08/25/2024 1:42 PM
[2024-08-25] MEDS: FUROSEMIDE 20 MG TAB PO SCH (16:28)
[2024-08-25] MEDS: methylPREDNISolone SOD SUCCI 125 MG/2 ML VIAL IV SCH (20:24)
--- NOTE | 2024-08-25 21:00 | P.PN ---
Subjective Progress Note Date: 08/25/24 Patient was seen for a follow-up. Patient is laying comfortably in the bed. Patient states that he underwent a lot of workout including sessions with PT OT, and then underwent more prolonged MRIs, and he feels more weaker today. He states that he walks good, but he has difficulty getting up from laying position in the bed. Objective - Vital Signs Vital signs: Vital Signs Temp 98.2 F 08/25/24 14:00 Pulse 74 08/25/24 14:00 Resp 18 08/25/24 14:00 BP 112/78 08/25/24 14:00 Pulse Ox 96 08/25/24 14:00 FiO2 Intake & Output 08/24/24 08/25/24 08/25/24 18:59 06:59 18:59 Intake Total 221 Output Total 300 Balance 221 -300 Intake: Oral 221 Output: Urine 300 Other: Voiding Method Bedside Commode Bedside Commode Bedside Commode Urinal Urinal Urinal # Voids 1 # Bowel Movements 0 - Exam On examination mental status, speech and language functions and cranial nerves are normal. 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 - Labs CBC & Chem 7: 08/21/24 11:53 08/22/24 06:22 Assessment and Plan Assessment: * 78-year-old male came with subjective weakness of the right arm and right leg without involvement of the facial region or speech. MRI of the brain revealed subtle acute 2 mm lacunar infarct posterior right frontal lobe along the premotor cortex. This is likely clinically asymptomatic, as his symptoms are also on the ipsilateral side. Patient does have somewhat brisk reflexes, slight head drop. Rule out spinal canal stenosis. 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 * Diabetes * History of rheumatic fever/scarlet fever as a child. * Coronary artery disease * Congestive heart failure. * Chronic low back pain, right shoulder pain, likely due to above. Plan: MRI of the brain without contrast, revealed subtle acute 2 mm lacunar infarct posterior right frontal lobe along the premotor cortex. I personally reviewed MRI, agree with the findings. It appears this stroke is clinically asymptomatic because symptoms are also on the ipsilateral side. Patient was not a candidate for TNK as he came outside the window for TNK. MRI of the lumbar spine revealed multilevel degenerative disc disease. Severe central canal stenosis at L4-5. I personally reviewed MRI, agree with the findings. MRI of the cervical spine revealed multilevel degenerative disc disease. Central stenosis with thinning of the cervical spinal cord and compressing myelopathy at C3-4 and C4-5. Extruded disc herniation is noted at C7 and T1. I personally reviewed MRI, agree with the findings. Consult orthopedic spine surgery Patient states his symptoms have got worse today after PT/OT and MRIs. We will start Solu-Medrol 125 mg IV push every 6 hours. Need to watch blood sugars. 2-D echo revealed increased LV mass with left ventricular systolic function of 40 to 45%. Moderate concentric LVH, moderate RV enlargement, biatrial enlargement. No [id number]-hb-[id number] shunting noted on bubble study. Moderately increased left atrial diameter. No left atrial thrombus or mass. However in the impression it mentions left or right Doppler flow signal suggest small PFO with ltfx-ax-clucl shunt. Patient has been started on Eliquis. No mitral valve stenosis. Carotid Doppler revealed no hemodynamically significant stenosis on either side. Antegrade flow in both vertebral arteries. Fasting a.m. lipid panel cholesterol 149, LDL 81, HDL 39, triglycerides 139. Patient placed on Lipitor 80 mg daily. At home patient was on pravastatin 20 mg. Hemoglobin A1c 5.8, well-controlled. Optimize control of blood pressure. B12 377, folate 6.70, MMA, B6 pending. Patient has been started on Eliquis 5 mg twice daily, patient also on aspirin 81 mg daily.. Neuro checks every 4 hours. Telemetry monitoring rule out any arrhythmia Hold off on PT/OT, until cleared by orthopedic surgery. DVT prophylaxis: Patient on Eliquis. Discussed with primary team. Dr. Mateo Leonard to resume neurology service in the morning.
[2024-08-26] MEDS: MELOXICAM 7.5 MG TAB PO SCH (09:04)
[2024-08-26] MEDS ORDERED: SENNOSIDES 8.6 MG TAB PO PRN (09:40)
--- NOTE | 2024-08-26 10:14 | P.PN ---
Subjective Progress Note Date: 08/26/24 Principal diagnosis: 08/24/24: Patient seen and examined at bedside today. He complains of pain on the right hip from a fall he sustained a few days ago when he started having the lower extremity weakness. Denies any other complaints. No acute events over night. 08/25/24: Patient evaluated at bedside. No acute events overnight. He feels that his right upper extremity is more weak today and reports pain in the right buttock area from the fall. 08/26/24: Patient seen and examined today at bedside. He reports improvement in his left hand numbness, but feels his right hand is still weak. He also reports lower back pain above his right buttock. He mentions not having a bowel movement in 2-3 days. Review of systems: Pertinent positives and negatives as discussed in HPI, a complete review of systems was performed and all other systems are negative. Vitals: Signs Reviewed and stable Physical examination: General: nontoxic, no distress, appears at stated age Derm: warm, dry, intact Head: atraumatic, normocephalic, symmetric Eyes: EOMI, anicteric sclera Mouth: no lip lesion, mucus membranes moist Cardiovascular: S1 S2 reg, no murmur Lungs: CTA bilateral, no rhonchi, no rales, no accessory muscle use Abdominal: soft, non-tender to palpataion Extremities: No cyanosis, clubbing, or pedal edema. Neuro: Alert, Oriented, Right upper and lower extremity strength 4 out of 5, Left upper and lower extremity strength 5 out of 5, Sensation to light touch similar on both upper and lower extremity. Psych: well appearing, appropriate affect Data Reviewed Today: Labs: No new labs today Imaging: Cervical and lumbar spine MRI shows central stenosis with cervical spinal cord compressive myelopathy at C3-4 and C4-5, extruded disc herniation noted at C7-T1, severe central stenosis at L4-5, multilevel degenerative disc disease Assessment/Plan: Patient is 78-year-old male with a history of coronary artery disease, chest pain, heart failure presents to the ER with right sided arm and leg numbness over the past 10 days. Patient found to have cervical spinal canal stenosis and orthopedic spine is consulted. Active: #. Spinal canal stenosis at C3-4, C4-5, L4-5 #. Acute ischemic infarct of the right frontal lobe, asymptomatic #. Right sided weakness #. Mild cardiomyopathy, EF 40-45% #. Small patent riley ovale Brain MRI shows acute 2 mm lacunar infarct posterior right frontal lobe along the premotor cortex Cervical and lumbar spine MRI shows central stenosis with cervical spinal cord compressive myelopathy at C3-4 and C4-5, extruded disc herniation noted at C7- T1, severe central stenosis at L4-5, multilevel degenerative disc disease Continue Aspirin 81 mg daily, atorvastatin 80 mg p.o. daily Continue IV solumedrol 125 mg Q6HR Continue telemetry monitoring Fall precautions PT, OT and speech therapy consulted Neurochecks every 4 hours Considering it is a lacunar infarct, possibly thrombotic stroke more likely than embolic, however his symptoms are on the right side instead of the left Neurology is following, recommend starting IV solumedrol Orthopedic spine surgery consulted #. Hip pain secondary to fall due to weakness Hip and Pelvix Xray showed no acute osseous abnormalities Home med Mobic 15 mg PO daily, tramadol 100 mg p.o. twice daily resumed #. Constipation Senna added Continue MiraLAX Chronic: #. GERD #. Hyperlipidemia #. History of atrial fibrillation #. CAD #. Neuropathy #. Hypertension #. Insomnia Continue Protonix 40 mg at bedtime, atorvastatin 80 mg daily, metoprolol succinate ER 25 mg daily, Eliquis 5 mg twice daily, Furosemide 20 mg PO BID, Pregabalin 100 mg PO TID, melatonin 5 mg p.o. at bedtime as needed, fluticasone nasal spray F: None E: Replete as needed N: Regular diet A: Ambulatory DVT prophylaxis: Eliquis 5 mg twice daily Code status: Full Code Anticipated discharge place: Pending clinical course Anticipated discharge time: Pending clinical course Dictation was produced using [employer] dictation software. please excuse any grammatical, word or spelling errors. Cassius Bahena MD PGY-1 IM I have seen and evaluated the patient today. Discussed with the resident and agree with the residents finding and plan as documented in the resident's note. Changes highlighted in blue font. Objective - Vital Signs Vital signs: Vital Signs Temp 97.7 F 08/26/24 06:59 Pulse 81 08/26/24 06:59 Resp 17 08/26/24 06:59 BP 132/79 08/26/24 06:59 Pulse Ox 97 08/26/24 06:59 FiO2 Intake & Output 08/25/24 08/26/24 08/26/24 18:59 06:59 18:59 Output Total 660 Balance -660 Output: Urine 660 Other: Voiding Method Bedside Commode Bedside Commode Urinal Urinal # Voids 1 - Labs CBC & Chem 7: 08/21/24 11:53 08/22/24 06:22
--- NOTE | 2024-08-26 11:24 | P.CNOR ---
History of Present Illness - [facility] Consult date: 08/26/24 Consult reason: other (Cervical myelopathy/cervical stenosis) History of present illness: Patient is a 78-year-old male who has been at [facility] due to significant weakness appreciated in the bilateral lower extremities and right upper extremity. There is initial concern for stroke, patient has been followed by both internal medicine and neurology since being in the hospital the last 4 to 5 days. MRI of the brain did demonstrate a small infarct in the right frontal lobe. MRIs of both cervical and lumbar spine have been done since then, patient has also been started on IV steroids as of 08/25/2024. Our orthopedic team was consulted due to the MRI results. Evaluated today at bedside, he is in his hospital bed resting comfortably. Patient states that all the symptoms began early last week and progressively worsened into Saturday when he reported to [facility]. Patient has noticed significant numbness and tingling to the bilateral hands right being worse than the left. He has noticed difficulty with extending the fingers in almost a clawlike deformity in the left upper extremity. Patient also admits to significant weakness in the bilateral legs with the right lower extremity being worse. Patient has a known history of diabetes and he does deal with some diabetic neuropathy that affects both feet. Patient takes Lyrica for that issue, he also takes Pescadero for severe migraines. Patient denies any previous surgery to the cervical, thoracic or lumbar spine. Patient denies any loss of bowel or bladder function, he has been dealing with some constipation over the last 3 to 4 days. He denies any numbness or tingling to the genital or perineal region at this time. Patient is having a very difficult time getting out of bed at this time and trying to walk. He has been dealing with difficulty fine motor movements with the right upper extremity over the last week. Patient does admit to some vague discomfort on his low back that trends into the right lateral hip region. Patient admits to a fall back in March where he did hit his head, at that time he had none of the symptoms present. Currently has no headaches, headedness, chest pain or shortness of breath. Review of Systems Constitutional: Reports as per HPI Past Medical History Past Medical History: Coronary Artery Disease (CAD), Chest Pain / Angina, Heart Failure History of Any Multi-Drug Resistant Organisms: None Reported Past Surgical History: Joint Replacement, Orthopedic Surgery Additional Past Surgical History / Comment(s): Nose, tongue Past Psychological History: No Psychological Hx Reported Smoking Status: Never smoker Past Alcohol Use History: None Reported Past Drug Use History: None Reported Medications and Allergies Home Medications Medication Instructions Recorded Confirmed Type Benzonatate [Tessalon Perles] 100 mg PO TID PRN 08/21/24 08/21/24 History Fluticasone Nasal Loraine [Flonase 2 spr EA NOSTRIL DAILY 08/21/24 08/21/24 History Nasal Loraine] Furosemide [Lasix] 20 mg PO BID-W/MEALS 08/21/24 08/21/24 History HYDROcodone/APAP 7.5-325MG [Pescadero 1 tab PO BID PRN 08/21/24 08/21/24 History 7.5-325] Meloxicam [Mobic] 15 mg PO DAILY 08/21/24 08/21/24 History Metoprolol Succinate (ER) [Toprol 25 mg PO DAILY 08/21/24 08/21/24 History Xl] Omeprazole 40 mg PO HS 08/21/24 08/21/24 History Pravastatin Sodium [Pravachol] 20 mg PO HS 08/21/24 08/21/24 History Pregabalin [Lyrica] 100 mg PO TID 08/21/24 08/21/24 History traMADol HCL 100 mg PO BID 08/21/24 08/21/24 History Allergies Allergy/AdvReac Type Severity Reaction Status Date / Time bee venom protein (honey bee) Allergy "pass out" Verified 08/21/24 14:04 Physical Examination Osteopathic Statement: *. No significant issues noted on an osteopathic structural exam other than those noted in the History and Physical/Consult. Gen: AOx3, NAD VSS stable at this time Integument: No open lesions or sores are visualized throughout the cervical, thoracic or lumbar spine Palpation: Mild tenderness with palpation to the paraspinal cervical and lumbar region ROM: Left upper extremity left lower extremity demonstrate full range of motion in all major muscle groups, no focal deficits appreciated Right upper extremity patient has difficulty with shoulder elevation along with finger intrinsics. Right lower extremity demonstrates difficulty with hip flexion Sensory Exam: [Senory exam to light touch is intact C5-T1] [Senosry exam to light touch is intact L2-S1] Motor: Left upper extremity-shoulder elevation 4+/5, biceps/triceps 4+/5, wrist extension/wrist flexion 4/5, finger intrinsics 4/5 Right upper extremity-shoulder elevation 3+/5, biceps/triceps 4-/5, wrist extension/wrist flexion 4-/5, finger intrinsics 3+/5 Left lower extremityhip flexion 4 -/5, knee extension/knee flexion 4-/5, plantarflexion/dorsiflexion 5/5 EHL/FHL 5/5 Right lower extremity-hip flexion 3+/5, knee extension/knee flexion 4-/5, plantarflexion/dorsiflexion 5/5, EHL/FHL 5/5 Reflexes: Positive Michael's bilaterally, right worse than left Positive clonus bilaterally 23 beats Special Test: Logroll maneuver reproduces no groin pain Results - Labs Labs: Abnormal Lab Results - Last 24 Hours (Table) 08/23/24 Range/Units 05:17 Methylmalonic Acid 0.84 H (<0.40) umol/L H & H 08/21/24 Range/Units 11:53 Hgb 15.0 (13.0-17.0) g/dL Hct 41.3 (39.6-50.0) % Coagulation 08/21/24 08/21/24 Range/Units 11:53 12:51 INR 1.0 1.0 (<1.2) Result Diagrams: 08/21/24 11:53 08/22/24 06:22 - Diagnostic results Cervical MRI with/without contrast: report reviewed, image reviewed Lumbar MRI with/without contrast: report reviewed, image reviewed Assessment and Plan Assessment: Bilateral upper extremity weakness, right worse than left Bilateral lower extremity weakness, right worse than left Cervical myelopathy Multilevel cervical spondylosis Cervical stenosis, significant levels C3-C4, C4-C5 C7-T1 HNP Multilevel lumbar spondylosis Lumbar spinal stenosis L4-L5 Plan: I was able to discuss this case, this to include both the physical exam findings and MRI findings of the cervical lumbar spine with my attending Dr. Lagos. Patient is severely myelopathic likely due to his cervical spine findings, I did discuss this briefly with him today at bedside. We discussed treatment options, he is in good spirits saying his steroids seem to be improving his upper extremity symptoms. Surgical intervention was discussed with the patient, he was made aware that my attending physician would discuss this in further detail with him, this to include risk and benefits. Patient is tentatively scheduled for a C3-C7 ACDF stage I for 08/27/2024. We did discuss the posterior aspect of the procedure briefly along with possible lumbar surgery in the future pending outpatient symptoms progress during his rehabilitation process Discussed with nursing today at bedside okay for patient to get up to the shower, recommending multiple assistance and the use of a wheelchair and shower chair Pain control, continue current medications N.p.o. after midnight for tentative surgery on 08/27/2024 Other medical specialty recommendations appreciated Further recommendations to follow Time with Patient: Less than 30
[2024-08-26] MEDS: METOPROLOL SUCCINATE (ER) 25 MG TAB.ER.24H PO STA (12:19)
--- NOTE | 2024-08-26 14:38 | P.PN ---
Subjective Progress Note Date: 08/26/24 I am seeing the patient for the first time during this hospital admission. Please refer to Dr. Sandra's notes for further details. It seems the patient has significant weakness over the right side > left and had difficulty getting out of bed. He had imaging of neck which showed severe cervical stenosis and her was started on IV steroids. Patient feels he is doing better with IV steroids. Objective - Vital Signs Vital signs: Vital Signs Temp 98.3 F 08/26/24 13:19 Pulse 91 08/26/24 13:19 Resp 18 08/26/24 13:19 BP 121/71 08/26/24 13:19 Pulse Ox 93 L 08/26/24 13:19 FiO2 Intake & Output 08/25/24 08/26/24 08/26/24 18:59 06:59 18:59 Output Total 660 Balance -660 Output: Urine 660 Other: Voiding Method Bedside Commode Bedside Commode Bedside Commode Urinal Urinal Urinal # Voids 1 - Exam General: Lying in bed and is not in acute distress. Neuro: The patient is awake, alert, oriented to self, place and time. Is following s imple commands. No aphasia. No facial weakness. No dysthria. Motor: Hard to assess individual muscle strength because of his weakness. But was able to lift above gravity throughout and needed assistance to sit up in bed. - Labs CBC & Chem 7: 08/21/24 11:53 08/22/24 06:22 Labs: Abnormal Lab Results - Last 24 Hours (Table) 08/23/24 Range/Units 05:17 Methylmalonic Acid 0.84 H (<0.40) umol/L Assessment and Plan Assessment: * This is a 78-year-old male came with subjective weakness of the right arm and right leg > left without involvement of the facial region or speech. MRI of the brain revealed subtle acute 2 mm lacunar infarct posterior right frontal lobe along the premotor cortex. This is likely clinically asymptomatic, as his symptoms are also on the ipsilateral side and secondly I reviewed MRI and feel ADC and DWI do not correlate and unsure if truly stroke vs artifact. Patient does have somewhat brisk reflexes, slight head drop. Likely due to severe cervical stenosis with myelopathy--today is improving after IV steroids. 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 * Diabetes * History of rheumatic fever/scarlet fever as a child. * Coronary artery disease * Congestive heart failure. * Chronic low back pain, right shoulder pain, likely due to above. Plan: MRI of the brain without contrast, revealed subtle acute 2 mm lacunar infarct posterior right frontal lobe along the premotor cortex. I personally reviewed MRI, agree with the findings. It appears this stroke is clinically asymptomatic because symptoms are also on the ipsilateral side. I reviewed MRI and feel ADC and DWI do not correlate and unsure if truly stroke vs artifact. MRI of the lumbar spine revealed multilevel degenerative disc disease. Severe central canal stenosis at L4-5. I personally reviewed MRI, agree with the f indings. MRI of the cervical spine revealed multilevel degenerative disc disease. Central stenosis with thinning of the cervical spinal cord and compressing myelopathy at C3-4 and C4-5. Extruded disc herniation is noted at C7 and T1. I personally reviewed MRI, agree with the findings. Consult orthopedic spine surgery Patient states his symptoms have got worse today after PT/OT and MRIs. On Solu-Medrol 125 mg IV push every 6 hours. Need to watch blood sugars. 2-D echo revealed increased LV mass with left ventricular systolic function of 40 to 45%. Moderate concentric LVH, moderate RV enlargement, biatrial enlargement. No [id number] shunting noted on bubble study. Moderately increased left atrial diameter. No left atrial thrombus or mass. However in the impression it mentions left or right Doppler flow signal suggest small PFO with [id number] shunt. Patient has been started on Eliquis. No mitral valve stenosis. Carotid Doppler revealed no hemodynamically significant stenosis on either side. Antegrade flow in both vertebral arteries. Fasting a.m. lipid panel cholesterol 149, LDL 81, HDL 39, triglycerides 139. Patient placed on Lipitor 80 mg daily. At home patient was on pravastatin 20 mg. Hemoglobin A1c 5.8, well-controlled. Optimize control of blood pressure. B12 377, folate 6.70, MMA, B6 pending. Patient has been started on Eliquis 5 mg twice daily, patient also on aspirin 81 mg daily.. Neuro checks every 4 hours. Telemetry monitoring rule out any arrhythmia Hold off on PT/OT, until cleared by orthopedic surgery. DVT prophylaxis: Patient on Eliquis. The plan is discussed with patient and his family members who are ate bedside and primary team. Time with Patient: Less than 30
[2024-08-26] MEDS: ENOXAPARIN 40 MG/0.4 ML SYRINGE SQ SCH (20:47)
[2024-08-26] MEDS: ALPRAZolam 0.25 MG TAB PO STA (23:10)
[2024-08-27] MEDS: METOPROLOL SUCCINATE (ER) 50 MG TAB.ER.24H PO SCH (09:26)
--- NOTE | 2024-08-27 12:15 | P.PN ---
Subjective Progress Note Date: 08/27/24 Principal diagnosis: 08/24/24: Patient seen and examined at bedside today. He complains of pain on the right hip from a fall he sustained a few days ago when he started having the lower extremity weakness. Denies any other complaints. No acute events over night. 08/25/24: Patient evaluated at bedside. No acute events overnight. He feels that his right upper extremity is more weak today and reports pain in the right buttock area from the fall. 08/26/24: Patient seen and examined today at bedside. He reports improvement in his left hand numbness, but feels his right hand is still weak. He also reports lower back pain above his right buttock. He mentions not having a bowel movement in 2-3 days. 08/27/24: Patient evaluated today. Patient maintained. N.p.o. after midnight for surgery today. He is anxious today due to the surgery. He reports not having a bowel movement yet. Review of systems: Pertinent positives and negatives as discussed in HPI, a complete review of systems was performed and all other systems are negative. Vitals: Signs Reviewed and stable Physical examination: General: nontoxic, no distress, appears at stated age Derm: warm, dry, intact Head: atraumatic, normocephalic, symmetric Eyes: EOMI, anicteric sclera Mouth: no lip lesion, mucus membranes moist Cardiovascular: S1 S2 reg, no murmur Lungs: CTA bilateral, no rhonchi, no rales, no accessory muscle use Abdominal: soft, non-tender to palpataion Extremities: No cyanosis, clubbing, or pedal edema. Neuro: Alert, Oriented, Right upper and lower extremity strength 4 out of 5, Left upper and lower extremity strength 5 out of 5, Sensation to light touch similar on both upper and lower extremity. Psych: anxious Data Reviewed Today: Labs: No new labs today Imaging: EKG independently interpreted as Afib with RVR, rate 109 bpm Assessment/Plan: Patient is 78-year-old male with a history of coronary artery disease, chest pain, heart failure presents to the ER with right sided arm and leg numbness over the past 10 days. Patient found to have cervical spinal canal stenosis and orthopedic spine is consulted. Active: #. Spinal canal stenosis at C3-4, C4-5, L4-5 #. Acute ischemic infarct of the right frontal lobe, asymptomatic #. Right sided weakness #. Mild cardiomyopathy, EF 40-45% #. Small patent [place] Brain MRI shows acute 2 mm lacunar infarct posterior right frontal lobe along the premotor cortex Cervical and lumbar spine MRI shows central stenosis with cervical spinal cord compressive myelopathy at C3-4 and C4-5, extruded disc herniation noted at C7- T1, severe central stenosis at L4-5, multilevel degenerative disc disease Continue atorvastatin 80 mg p.o. daily Continue IV solumedrol 125 mg Q6HR Aspirin and eliquis held for surgery Continue telemetry monitoring Fall precautions PT, OT and speech therapy consulted Neurochecks every 4 hours Considering it is a lacunar infarct, possibly thrombotic stroke more likely than embolic, however his symptoms are on the right side instead of the left Neurology is following, recommend holding off on PT/OT, until cleared by orthopedic surgery. Orthopedic spine surgery consulted, recommended cervical decompression fusion surgery today, Lovenox for DVT prophylaxis #. Hip pain secondary to fall due to weakness Hip and Pelvix Xray showed no acute osseous abnormalities Home med Mobic 15 mg PO daily, tramadol 100 mg p.o. twice daily resumed #. Constipation Senna added Continue MiraLAX #. Atrial fibrillation with RVR Patient complained of left arm pain yesterday EKG independently interpreted as Afib with RVR, rate 109 bpm Increased home med Metoprolol succinate to 50 mg PO daily Hold Eliquis for surgery Continue telemetry monitoring Chronic: #. GERD #. Hyperlipidemia #. CAD #. Neuropathy #. Hypertension #. Insomnia Continue Protonix 40 mg at bedtime, atorvastatin 80 mg daily, Furosemide 20 mg PO BID, Pregabalin 100 mg PO TID, melatonin 5 mg p.o. at bedtime as needed, fluticasone nasal spray F: None E: Replete as needed N: Regular diet A: Ambulatory DVT prophylaxis: Lovenox 40 mg SQ daily Code status: Full Code Anticipated discharge place: Pending clinical course Anticipated discharge time: Pending clinical course Dictation was produced using [email or web address] dictation software. please excuse any grammatical, word or spelling errors. Cassius Bahena MD PGY-1 IM I have seen and evaluated the patient today. Discussed with the resident and agree with the residents finding and plan as documented in the resident's note. Changes highlighted in blue font. Objective - Vital Signs Vital signs: Vital Signs Temp 98 F 08/27/24 05:22 Pulse 103 H 08/27/24 05:22 Resp 16 08/27/24 05:22 BP 105/64 08/27/24 05:22 Pulse Ox 95 08/27/24 05:22 FiO2 Intake & Output 08/26/24 08/27/24 08/27/24 18:59 06:59 18:59 Other: Voiding Method Bedside Commode Urinal # Voids 2 1 - Labs CBC & Chem 7: 08/21/24 11:53 08/22/24 06:22 Labs: Abnormal Lab Results - Last 24 Hours (Table) 08/23/24 Range/Units 05:17 Methylmalonic Acid 0.84 H (<0.40) umol/L
--- NOTE | 2024-08-27 12:55 | P.CRDCN ---
History of Present Illness Consult date: 08/27/24 Reason for Consult (text): Cardiac clearance for surgery scheduled today History of present illness: This is a 78-year-old male patient with past medical history of chronic atrial fibrillation on Eliquis, chronic systolic heart failure, diabetes mellitus type 2, hyperlipidemia. Patient states that he came into the hospital due to dizziness and weakness on the right side of his body. He states he saw chiropractor last Saturday but his states that he was having difficulty he had to require wheelchair to get him to the car. Patient has seen a cupola melter in the past and the last time was 6 years ago in [place] prior to knee surgery. He apparently had a stress test done at that time which he reports is normal. Patient has seen Dr. Carrillo in the past in 2012 with no follow-up. Patient states that he is not very active. When he is active he does not have chest pain. No shortness of breath. Patient recently has been off Eliquis because his ortiz went from $18-$490 per month. Patient presented to the hospital on 08/21. He had significant workup done which found severe cervical stenosis. Patient has been started on IV steroids and is scheduled for surgery today with Dr. Lagos. Patient's last dose of Eliquis was on 08/26 AM. -EKG: Atrial fibrillation with RVR 109 bpm obtained on 08/26. -Chest x-ray: Mild cardiomegaly. Interstitial prominence may be technical due to technique body habitus. -Laboratory studies: -Home cardiac medications: Lasix 20 mg twice daily, metoprolol succinate 25 mg daily, pravastatin 20 mg at bedtime. -Echocardiogram performed at [facility] on 08/21/2024 revealed EF 40 to 45%. Moderate RV enlargement. Biatrial enlargement. No [id number]-[id number] shunting noted on bubble study. Left or right Doppler flow signal suggest small PFO with wrov-[id number] shunt. Review Of Systems: At the time of my exam: CONSTITUTIONAL: Denies fever or chills. HEENT: Denies blurred vision, vision changes, or eye pain. Denies hemoptysis CARDIOVASCULAR: Denies chest pain. Denies orthopnea. Denies PND. Denies palpitations RESPIRATORY: Denies shortness of breath. GASTROINTESTINAL: Denies abdominal pain. Denies nausea or vomiting. HEMATOLOGIC: Denies bleeding disorders. GENITOURINARY: Denies any blood in urine. SKIN: Denies puritis. Denies rash. Physical examination: Gen: This is 78-year-old male in no acute distress VS: reviewed HEENT: Head is atraumatic, normocephalic. Pupils equal, round. Sclerae is anicteric. NECK: Supple. No JVD. LUNGS: Clear to auscultation. No wheezes or rhonchi. No intercostal retractions. HEART: Irregular rate and rhythm. No murmur. ABDOMEN: Soft No tenderness. EXTREMITIES: No pedal edema. No calf tenderness. NEUROLOGICAL: Patient is awake, alert and oriented x3. Assessment: Cervical spine stenosis scheduled for surgical intervention on 08/27 MRI revealed lacunar infarct posterior right frontal lobe likely clinically asymptomatic, not confirmed on MRI and neurology feels symptoms due to severe cervical stenosis with myelopathy Chronic persistent atrial fibrillation Diabetes Coronary artery disease Chronic systolic heart failure Poor functional capacity Plan: Continue patient's home cardiac medications Eliquis is on hold for surgery If planned surgery is urgent, patient should move forward with this surgery as planned. However, if this is surgery is not urgent, would recommend postponing as patient is at intermediate to high risk for cardiovascular complications in the perioperative period due to poor functional capacity, persistent atrial fibrillation, abnormal EKG, chronic systolic heart failure. Further recommendations to follow based upon clinical course Thank you kindly for this consultation. Nurse practitioner note has been reviewed, I agree with documented findings and plan of care. Patient was seen and examined. Past Medical History Past Medical History: Coronary Artery Disease (CAD), Chest Pain / Angina, Heart Failure History of Any Multi-Drug Resistant Organisms: None Reported Past Surgical History: Joint Replacement, Orthopedic Surgery Additional Past Surgical History / Comment(s): Nose, tongue Past Psychological History: No Psychological Hx Reported Smoking Status: Never smoker Past Alcohol Use History: None Reported Past Drug Use History: None Reported Medications and Allergies Home Medications Medication Instructions Recorded Confirmed Type Benzonatate [Tessalon Perles] 100 mg PO TID PRN 08/21/24 08/21/24 History Fluticasone Nasal [place] [Flonase 2 spr EA NOSTRIL DAILY 08/21/24 08/21/24 History Nasal [place]] Furosemide [Lasix] 20 mg PO BID-W/MEALS 08/21/24 08/21/24 History HYDROcodone/APAP 7.5-325MG [[place] 1 tab PO BID PRN 08/21/24 08/21/24 History 7.5-325] Meloxicam [Mobic] 15 mg PO DAILY 08/21/24 08/21/24 History Metoprolol Succinate (ER) [Toprol 25 mg PO DAILY 08/21/24 08/21/24 History Xl] Omeprazole 40 mg PO HS 08/21/24 08/21/24 History Pravastatin Sodium [Pravachol] 20 mg PO HS 08/21/24 08/21/24 History Pregabalin [Lyrica] 100 mg PO TID 08/21/24 08/21/24 History traMADol HCL 100 mg PO BID 08/21/24 08/21/24 History Allergies Allergy/AdvReac Type Severity Reaction Status Date / Time bee venom protein (honey bee) Allergy "pass out" Verified 08/21/24 14:04 Physical Exam Vitals: Vital Signs Temp Pulse Resp BP BP Pulse Ox 08/27/24 06:55 97.6 F 93 18 140/93 96 08/27/24 05:22 98 F 103 H 16 105/64 95 08/26/24 20:00 98.1 F 101 H 18 135/77 95 08/26/24 13:19 98.3 F 91 18 121/71 93 L Intake and Output 08/26/24 08/27/24 08/27/24 22:59 06:59 14:59 Other: # Voids 2 1 Results 08/21/24 11:53 08/22/24 06:22 Cardiac Enzymes 08/26/24 Range/Units 12:10 Troponin I <0.012 (0.000-0.034) ng/mL Current Medications Generic Name Dose Route Start Last Admin Trade Name Freq PRN Reason Stop Dose Admin Acetaminophen 650 mg 08/22/24 21:29 Acetaminophen Tab 325 Mg Tab PO Q6HR PRN Fever and/ or Pain Atorvastatin Calcium 80 mg 08/22/24 09:00 08/26/24 09:06 Atorvastatin 80 Mg Tab PO 80 mg DAILY ESTERLLITA Administration Fluticasone Propionate 2 spray 08/22/24 09:00 08/26/24 09:06 Fluticasone Nasal 50mcg/[place] 16gm Btl EA NOSTRIL 2 spray DAILY ESTRELLITA Administration Furosemide 20 mg 08/25/24 16:00 08/26/24 17:56 Furosemide 20 Mg Tab PO 20 mg BID@0900,1600 ESTRELLITA Administration Cefazolin Sodium 2 gm/ 50 mls @ 100 mls/hr 08/27/24 12:00 Dextrose/Water IVPB 08/27/24 12:29 ONCE ONE Protocol Tranexamic Acid 1,000 mg/ 110 mls @ 200 mls/hr 08/27/24 07:38 Sodium Chloride IVPB 08/27/24 08:10 ONCE ONE Protocol Tranexamic Acid 1,000 mg/ 110 mls @ 200 mls/hr 08/27/24 07:38 Sodium Chloride IVPB 08/27/24 08:10 ONCE ONE Protocol Melatonin 5 mg 08/22/24 21:29 08/26/24 23:10 Melatonin 5 Mg Tablet PO 5 mg HS PRN Administration Insomnia Methylprednisolone Sodium Succinate 125 mg 08/25/24 20:00 08/27/24 05:59 Methylprednisolone Sod Succi 125 Mg/2 Ml Vial IV 125 mg Q6HR ESTRELLITA Administration Metoprolol Succinate 50 mg 08/27/24 09:00 Metoprolol Succinate (Er) 50 Mg Tab.Er.24h PO DAILY ESTRELLITA Pantoprazole Sodium 40 mg 08/21/24 21:00 08/26/24 20:48 Pantoprazole 40 Mg Tablet PO 40 mg HS ESTRELLITA Administration Polyethylene Glycol 17 gm 08/25/24 09:00 08/26/24 09:06 Polyethylene Glycol 3350 17 Gm Powd.Pack PO 17 gm DAILY ESTRELLITA Administration Pregabalin 100 mg 08/21/24 16:00 08/26/24 20:48 Pregabalin 100 Mg Cap PO 100 mg TID ESTRELLITA Administration Senna 8.6 mg 08/26/24 09:40 Sennosides 8.6 Mg Tab PO BID PRN Constipation Tramadol HCl 100 mg 08/21/24 21:00 08/26/24 21:16 Tramadol 50 Mg Tab PO 100 mg BID ESTRELLITA Administration Intake and Output 08/26/24 08/27/24 08/27/24 22:59 06:59 14:59 Other: # Voids 2 1 08/21/24 11:53 08/22/24 06:22
[2024-08-27 13:54] LABS: Glucose,Whole Blood 253 mg/dL (70-110)
[2024-08-27] MEDS: IV FLUID CONTINUATION 1,000 ML IV ONE ×4 (14:00→16:02)
[2024-08-27] MEDS: INSULIN LISPRO (HumaLOG) 100 UNIT/ML 10 mL VL SQ ONE (14:05)
[2024-08-27] MEDS: MIDAZOLAM 2 MG/2 ML VIAL IV ONE (14:07)
--- NOTE | 2024-08-27 14:18 | P.PN ---
Progress Note - Text Progress Note Date: 08/27/24 [facility] PROVIDER: NICOLEQUOC Jun 20, 2024 7:00?AM SPINE SURGERY CLINICAL AND RISK REVIEW GO WHITE is a 78 YO MALE presenting for evaluation of UE AND LE WEAKNESS, ACUTE INABILITY TO AMBULATE, HYPERREFLEXIA, STROKE LIKE SX, NECK PAIN, SHOULDER PAIN ARM PAIN THAT HAS BEEN GOING ON FOR SOME TIME NOW BUT GOT ACUTELY WORSE 5 DAYS AGO AND HE HAS NOT WALKED SINCE. HE WAS INITIALLY WORKED UP FOR STROKE BEFORE SPINE WAS CONSULTED . It was my pleasure to have seen and examined GO WHITE. In our visit today we have had a chance to go over subjective complaints, physical examination findings and treatments including the natural course history without intervention and various interventional options. 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 Based on the patients imaging, physical exam, and the rapid progression and disabling nature of their symptoms, at this time I recommend surgery in the form of a: C3-7 ANTERIOR CERVICAL DISCECTOMY AND FUSION. I discussed the risk and benefits of this procedure at length with GO WHITE. The patient has agreed to consider pursuing the procedure above mentioned. Prior to surgery, they should follow up with her PCP (Cardio, ID, IM etc) for clearance. Questions were invited and answered, and the patient wishes to proceed as outlined below. Currently, I am recommending: C3-7 ANTERIOR CERVICAL DISCECTOMY AND FUSION Obtain appropriate presurgical workup and clearances as discussed with the patient. Review of surgical risks and benefits as well as an educational packet on the proposed surgical procedure. Risks: All surgical procedures come with inherent risks, including those related to positioning, anesthesia, intraoperative findings, and postoperative complications. It is important to understand that surgery does not come with any guarantee of a successful outcome as complications and adverse events are always possible. The patient was given a handout in the office today discussing the surgical procedure and risks associated with the intervention, both of which were discussed with the patient. These risks include but are not limited to the following: Experiencing same, different or even worse symptoms in back, neck, arms, or legs compared to before surgery. Requiring further surgery or other forms of treatment presently or at some time in the future at same or other levels of the intended spine surgery. On an extreme but fortunately relatively rare basis severe complications such as blindness, stroke, heart attack, temporary and/or permanent nerve injury, paralysis, coma, or may occur, sometimes without known explanation. Surgical complications may include but are not limited to risk of infection, fluid accumulation in the surgical dissection site, including a seroma or hematoma, that requires additional surgery, wound drainage, bleeding, new numbness or weakness, vision changes/loss, spinal fluid leakage, non-healing and/or infected incision, headaches, difficulty or inability to swallow, hoarseness, hemopneumothorax, pneumothorax, impotence, retrograde ejaculation, vaginal dryness; injury to nerves, spinal cord, blood vessels, lymphatics or other vital organs (i.e., bowel injury, injury to the great vessels); heterotopic bone formation; complications related to the hardware such as screws, rods, cages including misplaced hardware, device failure, instrumentation at the wrong spine level, hardware fracture/breakage, or hardware loosening; vertebral failure of the spinal column above or below the newly placed hardware; retained surgical instrumentations or devices and the need for further surgery. Medical risks of the planned spine surgery include but are not limited to generalized Infections to the whole body or local areas outside of the surgical site (sepsis), heart attack, bleeding, anaphylaxis, meningitis, seizure, epilepsy, hearing loss, burn jaime, laceration of the head or other areas of the body, bruising, hypersensitivity of the skin, bladder over distension; allergic reaction; shoulder injury related to positioning; fat, blood and air clots to other areas of the body like heart, lungs, brain; failure of internal organs such as lungs, kidneys, liver and excessive bleeding. If blood transfusions are necessary, note that transfusions may cause intolerance reactions such as anaphylaxis or other complex reactions. Despite best efforts, the results of spine surgery might not heal in terms of bone, soft tissues such as skin, fascia, ligaments, and joints. Additionally, in order to achieve best possible results, spine surgery may be carried out beyond the initially planned levels and involve decompression, fusion including insertion of hardware at levels other than the original intended area of surgical interest change some portions of the procedure in order to ensure the best possible outcomes. With spine surgery and spinal fusion, there are different off label uses of instrumentation (devices, implants and hardware) as well as biological substances (bone morphogenic proteins, demineralized bone matrix) as well as using extra bone from allograft sources (i.e. cadaver bone) or autograft (iliac crest bone, ribs, or the spine itself). The patient has been given information about these practices and their inherent risks and benefits. The patient has had a chance to review all the listed information, has been given print outs detailing this information, and has had all his/her questions answered to their satisfaction. It was my pleasure to have seen and examined GO WHITE. In our visit today we have had a chance to go over my understanding of our patient's current condition, the natural course history without intervention and various interventional options. Questions were invited and answered, and the patient wishes to proceed as outlined above. I have seen and examined the patient for 25 minutes and we have spent more than 50% of the time in repeat and detailed counseling about the patient's condition, its natural course history without and as much as can be predicted with surgery and re-review of various surgical treatment options. In conclusion, GO WHITE and their family requested we proceed with the above suggested surgery and are willing to accept risks and limitations of the suggested surgery as the nature of the disease process and our best attempts at treatment for the condition. In our visit today the patient and I have had a chance to go over my understanding of their current condition, the natural course history without intervention and various interventional options. Questions were invited and answered, and the patient wishes to proceed as outlined above. I will be sure to keep you updated after the patient returns here for further follow-up. Thank you again for your referral. Please do not hesitate to contact me if you have any further questions. Signed and authenticated by: August 27, 2024 2:14?PM EDT DO Bibi Sant[facility] [address] [place] [address] This document is confidential, intended only for the named recipient(s) and may contain information that is privileged or exempt from disclosure under applicable law. If you are not the intended recipient(s), you are notified that the dissemination, distribution or copying of this information is strictly prohibited. If you received this message in error, please notify the sender then delete this message.
[2024-08-27] MEDS ORDERED: SUCCINYLCHOLINE CHLORIDE 200 MG/10 ML VIAL IV ONE (14:56)
[2024-08-27] MEDS ORDERED: fentaNYL (PF) 50 MCG/ML 2 ML AMP ONE (14:56)
[2024-08-27] MEDS ORDERED: PHENYLEPHRINE-0.9% NACL SYG 1,000 MCG/10 ML SYRINGE ONE (14:56)
[2024-08-27] MEDS ORDERED: PROPOFOL 10 MG/ML 20 ML VIAL IV ONE (14:56)
[2024-08-27] MEDS ORDERED: LIDOCAINE 1% INJ 10MG/ML (20 ML MDV) ONE (14:56)
[2024-08-27] MEDS ORDERED: MIDAZOLAM 2 MG/2 ML VIAL ONE (14:56)
[2024-08-27] MEDS ORDERED: IPRATROPIUM-ALBUTEROL 3 ML NEB INHALATION PRN (17:18)
[2024-08-27] MEDS: ceFAZolin 2 GM in DEXTROSE 5% IN WATER 50 ML IVPB ONE (17:22)
[2024-08-27] MEDS: TRANEXAMIC ACID 1,000 MG in SODIUM CHLORIDE 0.9% 100 ML IVPB ONE (17:22)
[2024-08-27] MEDS: HEPARIN SOD,PORK IN 0.45% NACL 25,000 UNIT in 0.45% NACL 1 250ML.BAG IV SCH (18:20)
[2024-08-27] MEDS: HEPARIN SODIUM 1,000 UN/ML (10ML VL) IV ONE (18:24)
[2024-08-27 18:25] LABS: Basophils # (A) 0.01 10*3/uL (0.00-0.10); Basophils % (A) 0.1 %; HCT 40.2 % (39.6-50.0); Lymphocytes # (A) 0.82 10*3/uL (0.90-5.00); Lymphocytes % (A) 4.5 %; MCH 32.3 pg (27.0-32.0); MCHC 34.8 g/dL (32.0-37.0); MCV 92.8 fL (80.0-97.0); Mean Platelet Volume 11.4 fL (9.5-12.2); Monocytes # (A) 0.65 10*3/uL (0.20-1.00); Monocytes % (A) 3.6 %; Neutrophils # (A) 16.51 10*3/uL (1.80-7.70); Neutrophils % (A) 90.6 %; Platelet Count 199 10*3/uL (140-440); RBC 4.33 10*6/uL (4.40-5.60); RDW 13.3 % (11.5-14.5); WBC 18.21 10*3/uL (4.50-10.00)
[2024-08-27 18:34] LABS: INR 1.1 (<1.2); Partial Thromboplastin Time 25.4 sec (22.0-30.0); Prothrombin Time 11.6 sec (10.0-12.5)
[2024-08-27] MEDS: SENNOSIDES 8.6 MG TAB PO SCH (21:02)
[2024-08-28 05:13] LABS: Basophils # (A) 0.02 10*3/uL (0.00-0.10); Basophils % (A) 0.1 %; HCT 39.3 % (39.6-50.0); Lymphocytes # (A) 0.69 10*3/uL (0.90-5.00); Lymphocytes % (A) 3.9 %; MCH 32.9 pg (27.0-32.0); MCHC 35.6 g/dL (32.0-37.0); MCV 92.3 fL (80.0-97.0); Mean Platelet Volume 11.6 fL (9.5-12.2); Monocytes # (A) 0.42 10*3/uL (0.20-1.00); Monocytes % (A) 2.4 %; Neutrophils # (A) 16.45 10*3/uL (1.80-7.70); Neutrophils % (A) 93.1 %; Platelet Count 186 10*3/uL (140-440); RBC 4.26 10*6/uL (4.40-5.60); RDW 13.3 % (11.5-14.5); WBC 17.66 10*3/uL (4.50-10.00)
[2024-08-28 05:42] LABS: INR 1.1 (<1.2); Prothrombin Time 11.7 sec (10.0-12.5)
[2024-08-28 05:54] LABS: African American GFR (CKD) >90 (>60 ml/min/1.73 sqM); Anion Gap 8 mmol/L; Blood Urea Nitrogen 32 mg/dL (9-20); Calcium 8.5 mg/dL (8.4-10.2); Carbon Dioxide 27 mmol/L (22-30); Chloride 104 mmol/L (98-107); Glucose 274 mg/dL (74-99); Non-African American GFR(CKD) 84 (>60 ml/min/1.73 sqM); Potassium 4.3 mmol/L (3.5-5.1); Sodium 139 mmol/L (137-145)
[2024-08-28] MEDS: METOPROLOL TARTRATE 50 MG TAB PO SCH (08:39)
--- NOTE | 2024-08-28 12:17 | P.PN ---
Subjective Progress Note Date: 08/28/24 HPI: This patient was admitted for possible cervical spine surgery and then went into atrial fibrillation with rapid ventricular rate. He is feeling better today he is in atrial fibrillation he is somehow fairly well-controlled now it was much higher apparently earlier. I am recommending that we increase the metoprolol to tartrate to twice daily. He is actually on 50 mg of metoprolol succinate will switch to tartrate at 50 mg twice daily and resume either Eliquis or Pradaxa whenever it is okayed by his surgeon. Patient is currently on a heparin drip. He is resting comfortably has no chest pain ejection fraction is in the 40 to 45% range.. PHYSICIAL EXAM: Vitals are stable no JVD S1-S2 heard normally irregular rhythm noted short systolic murmur noted lungs reveal decent air entry abdomen is soft lower extremities reveal diminished pulses. IMPRESSION: 1. Atrial fibrillation with increased rate better now we will increase beta- perez. 2. Cervical spine stenosis/degenerative disease going for surgery. 3. History of CVA. 4. Hypercholesterolemia. 5.. RECOMMENDATIONS: Change metoprolol succinate to metoprolol tartrate 50 mg twice daily and resume anticoagulation when okayed by surgeon. Patient currently on IV heparin drip.. Objective - Vital Signs Vital signs: Vital Signs Temp 97.8 F 08/28/24 12:00 Pulse 100 08/28/24 12:00 Resp 10 L 08/28/24 12:00 BP 122/95 08/28/24 12:00 Pulse Ox 96 08/28/24 12:00 FiO2 Intake & Output 08/27/24 08/28/24 08/28/24 18:59 06:59 18:59 Intake Total 600 Output Total 650 735 325 Balance -50 -735 -325 Weight 122.8 kg Intake: IV 600 Output: Urine 650 735 325 Stool 0 Other: Voiding Method Urinal Indwelling Catheter Indwelling Catheter # Bowel Movements 1 - Labs CBC & Chem 7: 08/28/24 05:00 08/28/24 05:00 Labs: Abnormal Lab Results - Last 24 Hours (Table) 08/27/24 08/27/24 08/27/24 Range/Units 13:50 18:11 23:30 WBC 18.21 H (4.50-10.00) 10*3/uL RBC 4.33 L (4.40-5.60) 10*6/uL Hct (39.6-50.0) % MCH 32.3 H (27.0-32.0) pg Immature Gran # 0.22 H (0.00-0.04) 10*3/uL Neutrophils # 16.51 H (1.80-7.70) 10*3/uL Lymphocytes # 0.82 L (0.90-5.00) 10*3/uL Eosinophils # 0.00 L (0.04-0.35) 10*3/uL APTT 45.9 H (22.0-30.0) sec BUN (9-20) mg/dL Glucose (74-99) mg/dL POC Glucose (mg/dL) 253 H (70-110) mg/dL 08/28/24 08/28/24 Range/Units 05:00 05:00 WBC 17.66 H (4.50-10.00) 10*3/uL RBC 4.26 L (4.40-5.60) 10*6/uL Hct 39.3 L (39.6-50.0) % MCH 32.9 H (27.0-32.0) pg Immature Gran # 0.08 H (0.00-0.04) 10*3/uL Neutrophils # 16.45 H (1.80-7.70) 10*3/uL Lymphocytes # 0.69 L (0.90-5.00) 10*3/uL Eosinophils # 0.00 L (0.04-0.35) 10*3/uL APTT (22.0-30.0) sec BUN 32 H (9-20) mg/dL Glucose 274 H (74-99) mg/dL POC Glucose (mg/dL) (70-110) mg/dL
--- NOTE | 2024-08-28 13:13 | P.PN ---
Subjective Progress Note Date: 08/28/24 I am following-up with the patient and per the nurse, yesterday the patient was taken for surgery for his severe cervical stenosis but it seems he had A-fib with RVR so surgery was aborted. Today the patient is still in recliner chair and states he is doing well and he is looking forward for the surgery. No new neurological issues. Objective - Vital Signs Vital signs: Vital Signs Temp 97.8 F 08/28/24 12:00 Pulse 100 08/28/24 12:00 Resp 10 L 08/28/24 12:00 BP 122/95 08/28/24 12:00 Pulse Ox 96 08/28/24 12:00 FiO2 Intake & Output 08/27/24 08/28/24 08/28/24 18:59 06:59 18:59 Intake Total 600 Output Total 650 735 325 Balance -50 -735 -325 Weight 122.8 kg Intake: IV 600 Output: Urine 650 735 325 Stool 0 Other: Voiding Method Urinal Indwelling Catheter Indwelling Catheter # Bowel Movements 1 - Exam General: Sitting in a recliner chair and is not in acute distress. Neuro: The patient is awake, alert, oriented to self, place and time. Is following simple commands. No aphasia. No facial weakness. No dysthria. 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 Otherwise, lifting all extremities above gravity equally and seems strong. - Labs CBC & Chem 7: 08/28/24 05:00 08/28/24 05:00 Labs: Abnormal Lab Results - Last 24 Hours (Table) 08/27/24 08/27/24 08/27/24 Range/Units 13:50 18:11 23:30 WBC 18.21 H (4.50-10.00) 10*3/uL RBC 4.33 L (4.40-5.60) 10*6/uL Hct (39.6-50.0) % MCH 32.3 H (27.0-32.0) pg Immature Gran # 0.22 H (0.00-0.04) 10*3/uL Neutrophils # 16.51 H (1.80-7.70) 10*3/uL Lymphocytes # 0.82 L (0.90-5.00) 10*3/uL Eosinophils # 0.00 L (0.04-0.35) 10*3/uL APTT 45.9 H (22.0-30.0) sec BUN (9-20) mg/dL Glucose (74-99) mg/dL POC Glucose (mg/dL) 253 H (70-110) mg/dL 08/28/24 08/28/24 Range/Units 05:00 05:00 WBC 17.66 H (4.50-10.00) 10*3/uL RBC 4.26 L (4.40-5.60) 10*6/uL Hct 39.3 L (39.6-50.0) % MCH 32.9 H (27.0-32.0) pg Immature Gran # 0.08 H (0.00-0.04) 10*3/uL Neutrophils # 16.45 H (1.80-7.70) 10*3/uL Lymphocytes # 0.69 L (0.90-5.00) 10*3/uL Eosinophils # 0.00 L (0.04-0.35) 10*3/uL APTT (22.0-30.0) sec BUN 32 H (9-20) mg/dL Glucose 274 H (74-99) mg/dL POC Glucose (mg/dL) (70-110) mg/dL Assessment and Plan Assessment: * This is a 78-year-old male came with subjective weakness of the right arm and right leg > left without involvement of the facial region or speech. MRI of the brain revealed subtle acute 2 mm lacunar infarct posterior right frontal lobe along the premotor cortex. This is likely clinically asymptomatic, as his symptoms are also on the ipsilateral side and secondly I reviewed MRI and feel ADC and DWI do not correlate and unsure if truly stroke vs artifact. Patient does have somewhat brisk reflexes, slight head drop. Likely due to severe cervical stenosis with myelopathy--today is improving after IV steroids. 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 * Coronary artery disease * Congestive heart failure. * Chronic low back pain, right shoulder pain, likely due to above. Plan: MRI of the brain without contrast, revealed subtle acute 2 mm lacunar infarct posterior right frontal lobe along the premotor cortex. I personally reviewed MRI, agree with the findings. It appears this stroke is clinically asymptomatic because symptoms are also on the ipsilateral side. I reviewed MRI and feel ADC and DWI do not correlate and unsure if truly stroke vs artifact. MRI of the lumbar spine revealed multilevel degenerative disc disease. Severe central canal stenosis at L4-5. I personally reviewed MRI, agree with the findings. MRI of the cervical spine revealed multilevel degenerative disc disease. Central stenosis with thinning of the cervical spinal cord and compressing myelopathy at C3-4 and C4-5. Extruded disc herniation is noted at C7 and T1. I personally reviewed MRI, agree with the findings. Orthopedic spine surgery is on board and pending to have surgery but pending medical clearance first/stability. Patient states his symptoms have got worse today after PT/OT and MRIs. On Solu-Medrol 125 mg IV push every 6 hours and will defer modification of steroid to Orthopedic team. Need to watch blood sugars. 2-D echo revealed increased LV mass with left ventricular systolic function of 40 to 45%. Moderate concentric LVH, moderate RV enlargement, biatrial enlargement. No [id number] shunting noted on bubble study. Moderately increased left atrial diameter. No left atrial thrombus or mass. However in the impression it mentions left or right Doppler flow signal suggest small PFO with [id number] shunt. Patient has been started on Eliquis. No mitral valve stenosis. Carotid Doppler revealed no hemodynamically significant stenosis on either side. Antegrade flow in both vertebral arteries. Fasting a.m. lipid panel cholesterol 149, LDL 81, HDL 39, triglycerides 139. Patient placed on Lipitor 80 mg daily. At home patient was on pravastatin 20 mg. Hemoglobin A1c 5.8, well-controlled. Optimize control of blood pressure. B12 377, folate 6.70, MMA, B6 pending. Patient is on heparin drip. Cardiology is consulted. Neuro checks every 4 hours. Hold off on PT/OT, until cleared by orthopedic surgery. DVT prophylaxis: Patient on heparin drip. The plan is discussed with patient and his nurse. Time with Patient: Less than 30
--- NOTE | 2024-08-28 13:41 | P.PN ---
Subjective Progress Note Date: 08/28/24 Principal diagnosis: 08/24/24: Patient seen and examined at bedside today. He complains of pain on the right hip from a fall he sustained a few days ago when he started having the lower extremity weakness. Denies any other complaints. No acute events over night. 08/25/24: Patient evaluated at bedside. No acute events overnight. He feels that his right upper extremity is more weak today and reports pain in the right buttock area from the fall. 08/26/24: Patient seen and examined today at bedside. He reports improvement in his left hand numbness, but feels his right hand is still weak. He also reports lower back pain above his right buttock. He mentions not having a bowel movement in 2-3 days. 08/27/24: Patient evaluated today. Patient maintained. N.p.o. after midnight for surgery today. He is anxious today due to the surgery. He reports not having a bowel movement yet. 08/28/24: Patient seen and examined at bedside today. He was taken for surgery yesterday but upon being intubated he went into Afib with RVR and the surgery was aborted. He is now in the ICU, being transferred to . He denies chest pain, palpitations. Review of systems: Pertinent positives and negatives as discussed in HPI, a complete review of systems was performed and all other systems are negative. Vitals: Signs Reviewed, Pulse 100 bpm Physical examination: General: nontoxic, no distress, appears at stated age Derm: warm, dry, intact Head: atraumatic, normocephalic, symmetric Eyes: EOMI, anicteric sclera Mouth: no lip lesion, mucus membranes moist Cardiovascular: S1 S2 reg, no murmur Lungs: CTA bilateral, no rhonchi, no rales, no accessory muscle use Abdominal: soft, non-tender to palpataion Extremities: No cyanosis, clubbing, or pedal edema. Neuro: Alert, Oriented, Right upper and lower extremity strength 4 out of 5, Left upper and lower extremity strength 5 out of 5, Sensation to light touch similar on both upper and lower extremity. Psych: anxious Data Reviewed Today: Labs: WBC 17.66, hemoglobin 14, BUN 32, potassium 4.3, glucose 274, APTT 45.9 Imaging: EKG independently interpreted as Afib with RVR, rate 109 bpm Assessment/Plan: Patient is 78-year-old male with a history of coronary artery disease, chest pain, heart failure presents to the ER with right sided arm and leg numbness over the past 10 days. Patient found to have cervical spinal canal stenosis and orthopedic spine is consulted. He was taken for surgery yesterday but upon being intubated he went into Afib with RVR and the surgery was aborted. He is now in the ICU. Active: #. Spinal canal stenosis at C3-4, C4-5, L4-5 #. Acute ischemic infarct of the right frontal lobe, asymptomatic #. Right sided weakness #. Mild cardiomyopathy, EF 40-45% #. Small patent ri[place] Brain MRI shows acute 2 mm lacunar infarct posterior right frontal lobe along the premotor cortex Cervical and lumbar spine MRI shows central stenosis with cervical spinal cord compressive myelopathy at C3-4 and C4-5, extruded disc herniation noted at C7- T1, severe central stenosis at L4-5, multilevel degenerative disc disease Continue atorvastatin 80 mg p.o. daily Continue IV solumedrol 125 mg Q6HR Aspirin and eliquis held for surgery ACDF C3-C7 cancelled post induction due to patient going into Afib RVR Continue telemetry monitoring Fall precautions PT, OT and speech therapy consulted Neurochecks every 4 hours Considering it is a lacunar infarct, possibly thrombotic stroke more likely than embolic, however his symptoms are on the right side instead of the left Neurology is following, recommend modification of steroid to Orthopedic team, holding off on PT/OT, until cleared by orthopedic surgery. Orthopedic spine surgery is following Cardiology is following, recommended If planned surgery is urgent, patient should move forward with this surgery as planned. intermediate to high risk for cardiovascular complications in the perioperative period #. Hip pain secondary to fall due to weakness Hip and Pelvix Xray showed no acute osseous abnormalities Home med Mobic 15 mg PO daily, tramadol 100 mg p.o. twice daily resumed #. Constipation Senna added Continue MiraLAX #. Atrial fibrillation with RVR Patient complained of left arm pain yesterday EKG independently interpreted as Afib with RVR, rate 109 bpm Increased Metoprolol tartrate to 50 mg PO BID Maintained on heparin drip Hold Eliquis for surgery Continue telemetry monitoring Cardiology is following Chronic: #. GERD #. Hyperlipidemia #. CAD #. Neuropathy #. Hypertension #. Insomnia Continue Protonix 40 mg at bedtime, atorvastatin 80 mg daily, Furosemide 20 mg PO BID, Pregabalin 100 mg PO TID, melatonin 5 mg p.o. at bedtime as needed, fluticasone nasal spray F: None E: Replete as needed N: Regular diet A: Ambulatory DVT prophylaxis: Lovenox 40 mg SQ daily Code status: Full Code Anticipated discharge place: Pending clinical course Anticipated discharge time: Pending clinical course Dictation was produced using [employer] dictation software. please excuse any grammatical, word or spelling errors. Cassius Bahena MD PGY-1 IM I have seen and evaluated the patient today. Discussed with the resident and agree with the residents finding and plan as documented in the resident's note. Changes highlighted in blue font. Tentative plans for surgery on 08/31. SIRS: Leukocytosis likely steroid induced. No signs of active infection. Monitor fever profile. Objective - Vital Signs Vital signs: Vital Signs Temp 98.2 F 08/28/24 00:00 Pulse 82 08/28/24 06:00 Resp 12 08/28/24 06:00 BP 106/75 08/28/24 06:00 Pulse Ox 94 L 08/28/24 06:00 FiO2 Intake & Output 08/27/24 08/28/24 08/28/24 18:59 06:59 18:59 Intake Total 600 Output Total 650 735 Balance -50 -735 Weight 122.8 kg Intake: IV 600 Output: Urine 650 735 Stool 0 Other: Voiding Method Urinal Indwelling Catheter - Labs CBC & Chem 7: 08/28/24 05:00 08/28/24 05:00 Labs: Abnormal Lab Results - Last 24 Hours (Table) 08/23/24 08/27/24 08/27/24 Range/Units 05:17 13:50 18:11 WBC 18.21 H (4.50-10.00) 10*3/uL RBC 4.33 L (4.40-5.60) 10*6/uL Hct (39.6-50.0) % MCH 32.3 H (27.0-32.0) pg Immature Gran # 0.22 H (0.00-0.04) 10*3/uL Neutrophils # 16.51 H (1.80-7.70) 10*3/uL Lymphocytes # 0.82 L (0.90-5.00) 10*3/uL Eosinophils # 0.00 L (0.04-0.35) 10*3/uL APTT (22.0-30.0) sec BUN (9-20) mg/dL Glucose (74-99) mg/dL POC Glucose (mg/dL) 253 H (70-110) mg/dL Vitamin B6 2 L (5-50) ug/L 08/27/24 08/28/24 08/28/24 Range/Units 23:30 05:00 05:00 WBC 17.66 H (4.50-10.00) 10*3/uL RBC 4.26 L (4.40-5.60) 10*6/uL Hct 39.3 L (39.6-50.0) % MCH 32.9 H (27.0-32.0) pg Immature Gran # 0.08 H (0.00-0.04) 10*3/uL Neutrophils # 16.45 H (1.80-7.70) 10*3/uL Lymphocytes # 0.69 L (0.90-5.00) 10*3/uL Eosinophils # 0.00 L (0.04-0.35) 10*3/uL APTT 45.9 H (22.0-30.0) sec BUN 32 H (9-20) mg/dL Glucose 274 H (74-99) mg/dL POC Glucose (mg/dL) (70-110) mg/dL Vitamin B6 (5-50) ug/L
[2024-08-28] MEDS ORDERED: DEXTROSE 50% SYRINGE 50 ML IVP PRN ×2 (14:23)
--- NOTE | 2024-08-28 14:27 | P.PN ---
Subjective Progress Note Date: 08/28/24 Principal diagnosis: Bilateral upper and lower extremity weakness, cervical myelopathy, severe spondylosis with stenosis Patient was evaluated today, he remains in the ICU. Once intubated and surgery yesterday patient developed A-fib with RVR, surgery was canceled he was transf erred to the ICU for monitoring. He is being followed by multiple medical specialties at this time, this to include cardiology who have adjusted his medications. Dr. Morris's and was able to discuss with the patient family yesterday of the postponement of the surgery and planning for surgery for 08/31/2024. At bedside today patient is resting comfortably sitting up in his hospital chair. His symptoms remain about the same. He remains on the IV steroids at this time. Objective - Vital Signs Vital signs: Vital Signs Temp 97.8 F 08/28/24 12:00 Pulse 100 08/28/24 12:00 Resp 10 L 08/28/24 12:00 BP 122/95 08/28/24 12:00 Pulse Ox 96 08/28/24 12:00 FiO2 Intake & Output 08/27/24 08/28/24 08/28/24 18:59 06:59 18:59 Intake Total 600 Output Total 650 735 450 Balance -50 -735 -450 Weight 122.8 kg Intake: IV 600 Output: Urine 650 735 450 Stool 0 Other: Voiding Method Urinal Indwelling Catheter Indwelling Catheter # Bowel Movements 1 - Exam Gen: AOx3, NAD VSS stable at this time Integument: No open lesions or sores are visualized throughout the cervical, thoracic or lumbar spine Palpation: Mild tenderness with palpation to the paraspinal cervical and lumbar region ROM: Left upper extremity left lower extremity demonstrate full range of motion in all major muscle groups, no focal deficits appreciated Right upper extremity patient has difficulty with shoulder elevation along with finger intrinsics. Right lower extremity demonstrates difficulty with hip flexion Sensory Exam: [Senory exam to light touch is intact C5-T1] [Senosry exam to light touch is intact L2-S1] Motor: Left upper extremity-shoulder elevation 4+/5, biceps/triceps 4+/5, wrist extension/wrist flexion 4/5, finger intrinsics 4/5 Right upper extremity-shoulder elevation 3+/5, biceps/triceps 4-/5, wrist extension/wrist flexion 4-/5, finger intrinsics 3+/5 Left lower extremityhip flexion 4 -/5, knee extension/knee flexion 4-/5, plantarflexion/dorsiflexion 5/5 EHL/FHL 5/5 Right lower extremity-hip flexion 3+/5, knee extension/knee flexion 4-/5, plantarflexion/dorsiflexion 5/5, EHL/FHL 5/5 Reflexes: Positive Michael's bilaterally, right worse than left Positive clonus bilaterally 23 beats Special Test: Logroll maneuver reproduces no groin pain - Labs CBC & Chem 7: 08/28/24 05:00 08/28/24 05:00 Labs: Abnormal Lab Results - Last 24 Hours (Table) 08/27/24 08/27/24 08/28/24 Range/Units 18:11 23:30 05:00 WBC 18.21 H 17.66 H (4.50-10.00) 10*3/uL RBC 4.33 L 4.26 L (4.40-5.60) 10*6/uL Hct 39.3 L (39.6-50.0) % MCH 32.3 H 32.9 H (27.0-32.0) pg Immature Gran # 0.22 H 0.08 H (0.00-0.04) 10*3/uL Neutrophils # 16.51 H 16.45 H (1.80-7.70) 10*3/uL Lymphocytes # 0.82 L 0.69 L (0.90-5.00) 10*3/uL Eosinophils # 0.00 L 0.00 L (0.04-0.35) 10*3/uL APTT 45.9 H (22.0-30.0) sec BUN (9-20) mg/dL Glucose (74-99) mg/dL 08/28/24 Range/Units 05:00 WBC (4.50-10.00) 10*3/uL RBC (4.40-5.60) 10*6/uL Hct (39.6-50.0) % MCH (27.0-32.0) pg Immature Gran # (0.00-0.04) 10*3/uL Neutrophils # (1.80-7.70) 10*3/uL Lymphocytes # (0.90-5.00) 10*3/uL Eosinophils # (0.04-0.35) 10*3/uL APTT (22.0-30.0) sec BUN 32 H (9-20) mg/dL Glucose 274 H (74-99) mg/dL Assessment and Plan Assessment: Bilateral upper extremity weakness, right worse than left Bilateral lower extremity weakness, right worse than left Cervical myelopathy Multilevel cervical spondylosis Cervical stenosis, significant levels C3-C4, C4-C5 C7-T1 HNP Multilevel lumbar spondylosis Lumbar spinal stenosis L4-L5 Plan: Surgery is tentatively scheduled for 08/31/2024 Discussed with nursing today at bedside okay for patient to get up to the shower, recommending multiple assistance and the use of a wheelchair and shower chair Pain control, continue current medications Diabetic diet at this time Other medical specialty recommendations appreciated Will continue to follow during hospital stay Time with Patient: Less than 30
[2024-08-28 15:28] VITALS: BMI 38.8
[2024-08-28 16:38] LABS: Glucose,Whole Blood 304 mg/dL (70-110)
[2024-08-28] MEDS: INSULIN LISPRO (HumaLOG) 100 UNIT/ML 10 mL VL SQ SCH (17:20)
[2024-08-29 04:59] LABS: Glucose,Whole Blood 268 mg/dL (70-110)
[2024-08-29 05:39] LABS: HCT 39.7 % (39.6-50.0); MCH 32.2 pg (27.0-32.0); MCHC 35.3 g/dL (32.0-37.0); MCV 91.3 fL (80.0-97.0); Mean Platelet Volume 11.5 fL (9.5-12.2); Platelet Count 179 10*3/uL (140-440); RBC 4.35 10*6/uL (4.40-5.60); RDW 12.9 % (11.5-14.5); WBC 12.93 10*3/uL (4.50-10.00)
[2024-08-29 05:52] LABS: African American GFR (CKD) >90 (>60 ml/min/1.73 sqM); Anion Gap 5 mmol/L; Blood Urea Nitrogen 31 mg/dL (9-20); Calcium 8.6 mg/dL (8.4-10.2); Carbon Dioxide 29 mmol/L (22-30); Chloride 103 mmol/L (98-107); Glucose 271 mg/dL (74-99); Non-African American GFR(CKD) 87 (>60 ml/min/1.73 sqM); Potassium 4.3 mmol/L (3.5-5.1); Sodium 137 mmol/L (137-145)
[2024-08-29] MEDS: HEPARIN SODIUM 1,000 UN/ML (10ML VL) IV PRN (06:24)
--- NOTE | 2024-08-29 09:49 | P.PN ---
Subjective Progress Note Date: 08/29/24 Principal diagnosis: 08/24/24: Patient seen and examined at bedside today. He complains of pain on the right hip from a fall he sustained a few days ago when he started having the lower extremity weakness. Denies any other complaints. No acute events over night. 08/25/24: Patient evaluated at bedside. No acute events overnight. He feels that his right upper extremity is more weak today and reports pain in the right buttock area from the fall. 08/26/24: Patient seen and examined today at bedside. He reports improvement in his left hand numbness, but feels his right hand is still weak. He also reports lower back pain above his right buttock. He mentions not having a bowel movement in 2-3 days. 08/27/24: Patient evaluated today. Patient maintained. N.p.o. after midnight for surgery today. He is anxious today due to the surgery. He reports not having a bowel movement yet. 08/28/24: Patient seen and examined at bedside today. He was taken for surgery yesterday but upon being intubated he went into Afib with RVR and the surgery was aborted. He is now in the ICU, being transferred to . He denies chest pain, palpitations. 08/29/24: Patient evaluated at bedside today. No acute events overnight. He had a bowel movement yesterday. He took his home med Ozempic and is refusing insulin sliding scale. Review of systems: Pertinent positives and negatives as discussed in HPI, a complete review of systems was performed and all other systems are negative. Vitals: Signs Reviewed and stable Physical examination: General: nontoxic, no distress, appears at stated age Derm: warm, dry, intact Head: atraumatic, normocephalic, symmetric Eyes: EOMI, anicteric sclera Mouth: no lip lesion, mucus membranes moist Cardiovascular: S1 S2 reg, no murmur Lungs: CTA bilateral, no rhonchi, no rales, no accessory muscle use Abdominal: soft, non-tender to palpataion Extremities: No cyanosis, clubbing, or pedal edema. Neuro: Alert, Oriented, Right upper and lower extremity strength 4 out of 5, Left upper and lower extremity strength 5 out of 5, Sensation to light touch similar on both upper and lower extremity. Psych: cooperative, appropriate affect Data Reviewed Today: Labs: WBC 12.93, APTT 38.7, glucose 271 Imaging: No new imaging Assessment/Plan: Patient is 78-year-old male with a history of coronary artery disease, chest pain, heart failure presents to the ER with right sided arm and leg numbness over the past 10 days. Patient found to have cervical spinal canal stenosis and orthopedic spine is consulted. He was taken for surgery yesterday but upon being intubated he went into Afib with RVR and the surgery was aborted. He is placed on Heparin drip. He is now in the ICU but is downgraded to 3S. Tentative plans for surgery on 08/31/24 Active: #. Spinal canal stenosis at C3-4, C4-5, L4-5 #. Acute ischemic infarct of the right frontal lobe, asymptomatic #. Right sided weakness #. Mild cardiomyopathy, EF 40-45% #. Small patent riley ovale #. Leukocytosis, likely steroid induced Brain MRI shows acute 2 mm lacunar infarct posterior right frontal lobe along the premotor cortex Cervical and lumbar spine MRI shows central stenosis with cervical spinal cord compressive myelopathy at C3-4 and C4-5, extruded disc herniation noted at C7- T1, severe central stenosis at L4-5, multilevel degenerative disc disease Continue atorvastatin 80 mg p.o. daily Continue IV solumedrol 125 mg Q6HR Aspirin and eliquis held for surgery Stop Heparin drip 8 hours prior to the surgery ACDF C3-C7 cancelled post induction due to patient going into Afib RVR Continue telemetry monitoring Fall precautions PT, OT and speech therapy consulted Neurochecks every 4 hours Considering it is a lacunar infarct, possibly thrombotic stroke more likely than embolic, however his symptoms are on the right side instead of the left Neurology is following, recommend modification of steroid to Orthopedic team, holding off on PT/OT, until cleared by orthopedic surgery. Cardiology is following, recommended If planned surgery is urgent, patient should move forward with this surgery as planned. intermediate to high risk for cardiovascular complications in the perioperative period Orthopedic spine surgery is following, tentative plans for surgery on 08/31/24 #. Hip pain secondary to fall due to weakness Hip and Pelvix Xray showed no acute osseous abnormalities Home med Mobic 15 mg PO daily, tramadol 100 mg p.o. twice daily resumed #. Constipation Senna added Continue MiraLAX #. Atrial fibrillation with RVR Patient complained of left arm pain yesterday EKG independently interpreted as Afib with RVR, rate 109 bpm Increased Metoprolol tartrate to 50 mg PO BID Maintained on heparin drip, stop 8 hours prior to surgery Hold Eliquis for surgery Continue telemetry monitoring Cardiology is following #. Hyperglycemia Patient refusing sliding scale He took his home med Ozempic yesterday Chronic: #. GERD #. Hyperlipidemia #. CAD #. Neuropathy #. Hypertension #. Insomnia Continue Protonix 40 mg at bedtime, atorvastatin 80 mg daily, Furosemide 20 mg PO BID, Pregabalin 100 mg PO TID, melatonin 5 mg p.o. at bedtime as needed, fluticasone nasal spray F: None E: Replete as needed N: Regular diet A: Ambulatory DVT prophylaxis: Heparin drip Code status: Full Code Anticipated discharge place: Pending clinical course Anticipated discharge time: Pending clinical course Dictation was produced using [employer] dictation software. please excuse any grammatical, word or spelling errors. Cassius Bahena MD PGY-1 IM I have seen and evaluated the patient today. Discussed with the resident and agree with the residents finding and plan as documented in the resident's note. Changes highlighted in blue font. Objective - Vital Signs Vital signs: Vital Signs Temp 98.0 F 08/29/24 04:00 Pulse 85 08/29/24 04:00 Resp 16 08/29/24 04:00 BP 125/77 08/29/24 04:00 Pulse Ox 98 08/29/24 04:00 FiO2 Intake & Output 08/28/24 08/29/24 08/29/24 18:59 06:59 18:59 Intake Total 743 116.833 Output Total 1000 1000 Balance -257 -883.167 Weight 122.8 kg 122.5 kg Intake: Intake, IV Titration 243 116.833 Amount Heparin Sod,Pork in 0.45% 243 116.833 NaCl 25,000 unit In 0.45 % NaCl 1 250ml.bag @ 8. 926 UNITS/KG/HR 10 mls/hr IV .Q24H [facility] Rx#: [id number] Oral 500 Output: Urine 1000 1000 Other: Voiding Method Indwelling Catheter Indwelling Catheter # Bowel Movements 1 - Labs CBC & Chem 7: 08/29/24 05:00 08/29/24 05:00 Labs: Abnormal Lab Results - Last 24 Hours (Table) 08/28/24 08/29/24 08/29/24 Range/Units 16:37 04:58 05:00 WBC (4.50-10.00) 10*3/uL RBC (4.40-5.60) 10*6/uL MCH (27.0-32.0) pg APTT 38.7 H (22.0-30.0) sec BUN (9-20) mg/dL Glucose (74-99) mg/dL POC Glucose (mg/dL) 304 H 268 H (70-110) mg/dL 08/29/24 08/29/24 Range/Units 05:00 05:00 WBC 12.93 H (4.50-10.00) 10*3/uL RBC 4.35 L (4.40-5.60) 10*6/uL MCH 32.2 H (27.0-32.0) pg APTT (22.0-30.0) sec BUN 31 H (9-20) mg/dL Glucose 271 H (74-99) mg/dL POC Glucose (mg/dL) (70-110) mg/dL
--- NOTE | 2024-08-29 11:28 | P.PN ---
Subjective Progress Note Date: 08/29/24 Principal diagnosis: Bilateral upper and lower extremity weakness, cervical myelopathy, severe spondylosis with stenosis Patient was evaluated today, he remains in the ICU. At bedside today patient is resting comfortably sitting up in his hospital chair. His symptoms remain about the same. He remains on the IV steroids at this time. Objective - Vital Signs Vital signs: Vital Signs Temp 97.6 F 08/29/24 08:06 Pulse 87 08/29/24 08:06 Resp 13 08/29/24 08:06 BP 137/71 08/29/24 08:06 Pulse Ox 95 08/29/24 08:06 FiO2 Intake & Output 08/28/24 08/29/24 08/29/24 18:59 06:59 18:59 Intake Total 743 116.833 Output Total 1000 1000 Balance -257 -883.167 Weight 122.8 kg 122.5 kg Intake: Intake, IV Titration 243 116.833 Amount Heparin Sod,Pork in 0.45% 243 116.833 NaCl 25,000 unit In 0.45 % NaCl 1 250ml.bag @ 8. 926 UNITS/KG/HR 10 mls/hr IV .Q24H [facility] Rx#: [id number] Oral 500 Output: Urine 1000 1000 Other: Voiding Method Indwelling Catheter Indwelling Catheter Indwelling Catheter # Bowel Movements 1 - Exam Gen: AOx3, NAD VSS stable at this time Integument: No open lesions or sores are visualized throughout the cervical, thoracic or lumbar spine Palpation: Mild tenderness with palpation to the paraspinal cervical and lumbar region ROM: Left upper extremity left lower extremity demonstrate full range of motion in all major muscle groups, no focal deficits appreciated Right upper extremity patient has difficulty with shoulder elevation along with finger intrinsics. Right lower extremity demonstrates difficulty with hip fle xion Sensory Exam: Senory exam to light touch is intact C5-T1 Senosry exam to light touch is intact L2-S1 Motor: Left upper extremity-shoulder elevation 4+/5, biceps/triceps 4+/5, wrist extension/wrist flexion 4/5, finger intrinsics 4/5 Right upper extremity-shoulder elevation 3+/5, biceps/triceps 4-/5, wrist extension/wrist flexion 4-/5, finger intrinsics 3+/5 Left lower extremityhip flexion 4 -/5, knee extension/knee flexion 4-/5, plantarflexion/dorsiflexion 5/5 EHL/FHL 5/5 Right lower extremity-hip flexion 3+/5, knee extension/knee flexion 4-/5, plantarflexion/dorsiflexion 5/5, EHL/FHL 5/5 Reflexes: Positive Michael's bilaterally, right worse than left Positive clonus bilaterally 23 beats Special Test: Logroll maneuver reproduces no groin pain - Labs CBC & Chem 7: 08/29/24 05:00 08/29/24 05:00 Labs: Abnormal Lab Results - Last 24 Hours (Table) 08/28/24 08/29/24 08/29/24 Range/Units 16:37 04:58 05:00 WBC (4.50-10.00) 10*3/uL RBC (4.40-5.60) 10*6/uL MCH (27.0-32.0) pg APTT 38.7 H (22.0-30.0) sec BUN (9-20) mg/dL Glucose (74-99) mg/dL POC Glucose (mg/dL) 304 H 268 H (70-110) mg/dL 08/29/24 08/29/24 Range/Units 05:00 05:00 WBC 12.93 H (4.50-10.00) 10*3/uL RBC 4.35 L (4.40-5.60) 10*6/uL MCH 32.2 H (27.0-32.0) pg APTT (22.0-30.0) sec BUN 31 H (9-20) mg/dL Glucose 271 H (74-99) mg/dL POC Glucose (mg/dL) (70-110) mg/dL Assessment and Plan Assessment: Bilateral upper extremity weakness, right worse than left Bilateral lower extremity weakness, right worse than left Cervical myelopathy Multilevel cervical spondylosis Cervical stenosis, significant levels C3-C4, C4-C5 C7-T1 HNP Multilevel lumbar spondylosis Lumbar spinal stenosis L4-L5 Plan: Surgery is tentatively scheduled for 08/31/2024 Pain control, continue current medications Diabetic diet at this time DVT prophylaxis, prefer subcu medication at this time, will stop 8 hours prior to surgery. 24 hours postsurgery pending drain output okay for oral anticoagulant Other medical specialty recommendations appreciated Will continue to follow during hospital stay Time with Patient: Less than 30
[2024-08-29 12:28] LABS: Glucose,Whole Blood 305 mg/dL (70-110)
--- NOTE | 2024-08-29 15:28 | P.PN ---
Subjective Progress Note Date: 08/29/24 HPI: This patient was admitted for possible cervical spine surgery and then went into atrial fibrillation with rapid ventricular rate. He is feeling better today he is in atrial fibrillation he is somehow fairly well-controlled now it was much higher apparently earlier. I am recommending that we increase the metoprolol to tartrate to twice daily. He is actually on 50 mg of metoprolol succinate will switch to tartrate at 50 mg twice daily and resume either Eliquis or Pradaxa whenever it is okayed by his surgeon. Patient is currently on a heparin drip. He is resting comfortably has no chest pain ejection fraction is in the 40 to 45% range.. 08/28 Patient seen and examined in the ICU. Patient denies having chest pain or chest pressure no shortness of breath. He feels that the strength is improving in his hands. He is currently in atrial fibrillation with controlled ventricular rate. Heart rate 87, blood pressure 137/71, pulse ox 95% on room air. Patient is scheduled for cervical spine surgery on Saturday Physical Examination Gen: This is a 78-year-old male in no acute distress HEENT: Head is atraumatic, normocephalic. Pupils equal, round. Sclerae is anicteric. NECK: Supple. No JVD. No lymphadenopathy. No thyromegaly. LUNGS: Clear to auscultation. No wheezes or rhonchi. No intercostal retractions. HEART: Irregular rate and rhythm. Short systolic murmur. ABDOMEN: Soft. Bowel sounds are present. No masses. No tenderness. EXTREMITIES: No pedal edema. No calf tenderness. NEUROLOGICAL: Patient is awake, alert and oriented x3. Cranial nerves 2 through 12 are grossly intact. IMPRESSION: 1. Persistent atrial fibrillation with episode of RVR, currently controlled rate 2. Cervical spine stenosis/degenerative disease going for surgery on Saturday. 3. History of CVA. 4. Hypercholesterolemia. 5. Poor functional capacity. RECOMMENDATIONS: Continue patient on a atorvastatin, metoprolol tartrate 50 mg twice daily Continue heparin drip until patient is cleared by surgeon to start oral anticoagulation postsurgery Nurse practitioner note has been reviewed, I agree with documented findings and plan of care. Patient was seen and examined. Objective - Vital Signs Vital signs: Vital Signs Temp 97.6 F 08/29/24 08:06 Pulse 87 08/29/24 08:06 Resp 13 08/29/24 08:06 BP 137/71 08/29/24 08:06 Pulse Ox 95 08/29/24 08:06 FiO2 Intake & Output 08/28/24 08/29/24 08/29/24 18:59 06:59 18:59 Intake Total 743 116.833 Output Total 1000 1000 Balance -257 -883.167 Weight 122.8 kg 122.5 kg Intake: Intake, IV Titration 243 116.833 Amount Heparin Sod,Pork in 0.45% 243 116.833 NaCl 25,000 unit In 0.45 % NaCl 1 250ml.bag @ 8. 926 UNITS/KG/HR 10 mls/hr IV .Q24H [facility] Rx#: [id number] Oral 500 Output: Urine 1000 1000 Other: Voiding Method Indwelling Catheter Indwelling Catheter Indwelling Catheter # Bowel Movements 1 - Labs CBC & Chem 7: 08/29/24 05:00 08/29/24 05:00 Labs: Abnormal Lab Results - Last 24 Hours (Table) 08/28/24 08/29/24 08/29/24 Range/Units 16:37 04:58 05:00 WBC (4.50-10.00) 10*3/uL RBC (4.40-5.60) 10*6/uL MCH (27.0-32.0) pg APTT 38.7 H (22.0-30.0) sec BUN (9-20) mg/dL Glucose (74-99) mg/dL POC Glucose (mg/dL) 304 H 268 H (70-110) mg/dL 08/29/24 08/29/24 Range/Units 05:00 05:00 WBC 12.93 H (4.50-10.00) 10*3/uL RBC 4.35 L (4.40-5.60) 10*6/uL MCH 32.2 H (27.0-32.0) pg APTT (22.0-30.0) sec BUN 31 H (9-20) mg/dL Glucose 271 H (74-99) mg/dL POC Glucose (mg/dL) (70-110) mg/dL
[2024-08-29] MEDS ORDERED: INSULIN GLARGINE (LANTUS) 100 UNIT/ML SYR SQ SCH (21:00)
[2024-08-29] MEDS: ALPRAZolam 0.5 MG TAB PO PRN (21:00)
[2024-08-30 06:59] LABS: HCT 38.9 % (39.6-50.0); MCH 32.6 pg (27.0-32.0); MCV 90.7 fL (80.0-97.0); Mean Platelet Volume 11.7 fL (9.5-12.2); Platelet Count 167 10*3/uL (140-440); RBC 4.29 10*6/uL (4.40-5.60); RDW 13.1 % (11.5-14.5); WBC 10.47 10*3/uL (4.50-10.00)
--- NOTE | 2024-08-30 10:13 | P.PN ---
Subjective Progress Note Date: 08/30/24 Principal diagnosis: Bilateral upper and lower extremity weakness, cervical myelopathy, severe spondylosis with stenosis Patient was evaluated today, patient was transferred to [facility]. No acute issues at this time, symptoms to the upper and lower extremities remain about the same. He remains on the IV steroids. Planning for surgery on 08/31/2024. Objective - Vital Signs Vital signs: Vital Signs Temp 97.8 F 08/30/24 06:10 Pulse 101 H 08/30/24 06:10 Resp 14 08/30/24 06:10 BP 125/82 08/30/24 06:10 Pulse Ox 97 08/30/24 06:10 FiO2 Intake & Output 08/29/24 08/30/24 08/30/24 18:59 06:59 18:59 Intake Total 133.167 Output Total 850 900 Balance -716.833 -900 Weight 121.9 kg Intake: Intake, IV Titration 133.167 Amount Heparin Sod,Pork in 0.45% 133.167 NaCl 25,000 unit In 0.45 % NaCl 1 250ml.bag @ 8. 926 UNITS/KG/HR 10 mls/hr IV .Q24H [facility] Rx#: [id number] Output: Urine 850 900 Other: Voiding Method Indwelling Catheter Indwelling Catheter # Bowel Movements 1 - Exam Gen: AOx3, NAD VSS stable at this time Integument: No open lesions or sores are visualized throughout the cervical, thoracic or lumbar spine Palpation: Mild tenderness with palpation to the paraspinal cervical and lumbar region ROM: Left upper extremity left lower extremity demonstrate full range of motion in all major muscle groups, no focal deficits appreciated Right upper extremity patient has difficulty with shoulder elevation along with finger intrinsics. Right lower extremity demonstrates difficulty with hip flexion Sensory Exam: Senory exam to light touch is intact C5-T1 Senosry exam to light touch is intact L2-S1 Motor: Left upper extremity-shoulder elevation 4+/5, biceps/triceps 4+/5, wrist extension/wrist flexion 4/5, finger intrinsics 4/5 Right upper extremity-shoulder elevation 3+/5, biceps/triceps 4-/5, wrist extension/wrist flexion 4-/5, finger intrinsics 3+/5 Left lower extremityhip flexion 4 -/5, knee extension/knee flexion 4-/5, plantarflexion/dorsiflexion 5/5 EH/FHL 5/5 Right lower extremity-hip flexion 3+/5, knee extension/knee flexion 4-/5, plantarflexion/dorsiflexion 5/5, EHL/FHL 5/5 Reflexes: Positive Michael's bilaterally, right worse than left Positive clonus bilaterally 23 beats Special Test: Logroll maneuver reproduces no groin pain - Labs CBC & Chem 7: 08/30/24 06:00 08/29/24 05:00 Labs: Abnormal Lab Results - Last 24 Hours (Table) 08/29/24 08/29/24 08/29/24 Range/Units 06:00 12:27 12:30 WBC (4.50-10.00) 10*3/uL RBC (4.40-5.60) 10*6/uL Hct (39.6-50.0) % MCH (27.0-32.0) pg APTT 62.4 H (22.0-30.0) sec POC Glucose (mg/dL) 305 H (70-110) mg/dL Hemoglobin A1c 6.2 H (<=6.0) % 08/30/24 08/30/24 Range/Units 06:00 06:00 WBC 10.47 H (4.50-10.00) 10*3/uL RBC 4.29 L (4.40-5.60) 10*6/uL Hct 38.9 L (39.6-50.0) % MCH 32.6 H (27.0-32.0) pg APTT 54.6 H (22.0-30.0) sec POC Glucose (mg/dL) (70-110) mg/dL Hemoglobin A1c (<=6.0) % Assessment and Plan Assessment: Bilateral upper extremity weakness, right worse than left Bilateral lower extremity weakness, right worse than left Cervical myelopathy Multilevel cervical spondylosis Cervical stenosis, significant levels C3-C4, C4-C5 C7-T1 HNP Multilevel lumbar spondylosis Lumbar spinal stenosis L4-L5 Plan: Surgery is scheduled for 08/31/2024 Pain control, continue current medications Diabetic diet at this time,NPO after midnight DVT prophylaxis, prefer subcu medication at this time, will stop 8 hours prior to surgery. 24 hours postsurgery pending drain output okay for oral anticoagulant Other medical specialty recommendations appreciated Will continue to follow during hospital stay Time with Patient: Less than 30
--- NOTE | 2024-08-30 11:13 | P.PN ---
Subjective Progress Note Date: 08/30/24 Patient was seen and examined. Nervous about upcoming surgery. Persistent RU and RLE weakness. Maintained on heparin drip at 10.926 units/kg/hr. CBC and Coag panel shows WBC 10.47, RBC 4.29, Hct 38.9, APTT 54.6. BP 125/82, HR 101, RR 14, 97% on RA, T97.8F. General: no distress, appears at stated age Derm: warm, dry Head: atraumatic, normocephalic, symmetric Mouth: no lip lesion, mucus membranes moist Cardiovascular: S1 S2 irreg. No murmur Lungs: Coarse BS bilaterally, no accessory muscle use Ext: no gross muscle atrophy, no edema, no contractures. Neuro: RU + RLE 4/5 strength, MARIPOSA and LLE 5/5 strength. Psych: Alert and oriented Based on my assessment of this patient, this patient meets a high complexity level of care. Right frontal lobe CVA: MRI brain acute lacunar infarct posterior right frontal lobe. Carotid doppler no significant stenosis. Echo EF 40-45% with PFO with L-R shunt. Lipitor 80 mg PO QD. Advanced neurochecks. Telemetry monitoring. Fall precautions. PT/OT/ST on board. Neurology on board. Atrial fibrillation with RVR: Metoprolol 50 mg PO BID. Continue heparin drip for AC. Monitor APTT. Cardiology on board. Leukocytosis which is likely reactive due to steroid use: Monitor fever profile. HFrEF with EF 40-45%: Consider the addition of ACEi + K sparing diuretic + SGLUT inhibitor after surgery. Cardiology on board. Patent foramen ovale: Deficit does not correlate to findings on MRI brain. Cardiology on board. DM with hyperglycemia: A1c 6.2. ISS + Accuchecks ACHS. Hypoglycemic precautions. Spinal canal stenosis L4-5 + C3-5: Management per Orthopedic surgery. SoluMedrol 125 mg IV Q6H. PT and OT consult. Plans for surgery 08/31. CODE STATUS: FULL CODE DVT Prophylaxis: Heparin drip GI Prophylaxis: Designated medical POA if patient is not able to make medical decisions for themselves: I have reviewed the following transformation consultant notes: Cardio, Ortho. I have reviewed the results of the following tests: CBC, Coag panel. I have ordered the following tests: APTT while on Heparin. I have discussed the care of this patient with the following independent historian: I have independently interpreted the following test below: I have discussed the management of this patient with the following physician: Objective - Vital Signs Vital signs: Vital Signs Temp 97.8 F 08/30/24 06:10 Pulse 101 H 08/30/24 06:10 Resp 14 08/30/24 06:10 BP 125/82 08/30/24 06:10 Pulse Ox 97 08/30/24 06:10 FiO2 Intake & Output 08/29/24 08/30/24 08/30/24 18:59 06:59 18:59 Intake Total 133.167 Output Total 850 900 Balance -716.833 -900 Weight 121.9 kg Intake: Intake, IV Titration 133.167 Amount Heparin Sod,Pork in 0.45% 133.167 NaCl 25,000 unit In 0.45 % NaCl 1 250ml.bag @ 8. 926 UNITS/KG/HR 10 mls/hr IV .Q24H [facility] Rx#: [id number] Output: Urine 850 900 Other: Voiding Method Indwelling Catheter Indwelling Catheter # Bowel Movements 1 - Labs CBC & Chem 7: 08/30/24 06:00 08/29/24 05:00 Labs: Abnormal Lab Results - Last 24 Hours (Table) 08/29/24 08/29/24 08/29/24 Range/Units 06:00 12:27 12:30 WBC (4.50-10.00) 10*3/uL RBC (4.40-5.60) 10*6/uL Hct (39.6-50.0) % MCH (27.0-32.0) pg APTT 62.4 H (22.0-30.0) sec POC Glucose (mg/dL) 305 H (70-110) mg/dL Hemoglobin A1c 6.2 H (<=6.0) % 08/30/24 08/30/24 Range/Units 06:00 06:00 WBC 10.47 H (4.50-10.00) 10*3/uL RBC 4.29 L (4.40-5.60) 10*6/uL Hct 38.9 L (39.6-50.0) % MCH 32.6 H (27.0-32.0) pg APTT 54.6 H (22.0-30.0) sec POC Glucose (mg/dL) (70-110) mg/dL Hemoglobin A1c (<=6.0) %
--- NOTE | 2024-08-30 14:17 | P.PN ---
Subjective Progress Note Date: 08/30/24 HPI: This patient was admitted for possible cervical spine surgery and then went into atrial fibrillation with rapid ventricular rate. He is feeling better today he is in atrial fibrillation he is somehow fairly well-controlled now it was much higher apparently earlier. We increased the metoprolol to tartrate to twice daily. He is actually on 50 mg of metoprolol succinate will switch to tartrate at 50 mg twice daily and resume either Eliquis or Pradaxa whenever it is okayed by his surgeon. Patient is currently on a heparin drip. He is resting comfortably has no chest pain ejection fraction is in the 40 to 45% range. 08/28 Patient seen and examined in the ICU. Patient denies having chest pain or chest pressure no shortness of breath. He feels that the strength is improving in his hands. He is currently in atrial fibrillation with controlled ventricular rate. Heart rate 87, blood pressure 137/71, pulse ox 95% on room air. Patient is scheduled for cervical spine surgery on Saturday. 08/30 He is doing okay. Denies any chest pain or pressure. Heart rates are controlled on telemetry. He does complain of generalized weakness and is anxious about his surgery. Physical Examination Gen: This is a 78-year-old male in no acute distress HEENT: Head is atraumatic, normocephalic. Pupils equal, round. Sclerae is anicteric. NECK: Supple. No JVD. No lymphadenopathy. No thyromegaly. LUNGS: Clear to auscultation. No wheezes or rhonchi. No intercostal retractions. HEART: Irregular rate and rhythm. Short systolic murmur. ABDOMEN: Soft. Bowel sounds are present. No masses. No tenderness. EXTREMITIES: No pedal edema. No calf tenderness. NEUROLOGICAL: Patient is awake, alert and oriented x3. Cranial nerves 2 through 12 are grossly intact. IMPRESSION: 1. Persistent atrial fibrillation with episode of RVR, currently controlled rate 2. Cervical spine stenosis/degenerative disease going for surgery on Saturday. 3. History of CVA. 4. Hypercholesterolemia. 5. Poor functional capacity. RECOMMENDATIONS: Continue patient on a atorvastatin, metoprolol tartrate 50 mg twice daily Continue heparin drip until patient is cleared by surgeon to start oral anticoagulation postsurgery. Patient cleared for surgery from a cardiac standpoint. Nurse practitioner note has been reviewed, I agree with documented findings and plan of care. Patient was seen and examined with Dr. Razo. Objective - Vital Signs Vital signs: Vital Signs Temp 97.8 F 08/30/24 06:10 Pulse 101 H 08/30/24 06:10 Resp 14 08/30/24 06:10 BP 125/82 08/30/24 06:10 Pulse Ox 97 08/30/24 06:10 FiO2 Intake & Output 08/29/24 08/30/24 08/30/24 18:59 06:59 18:59 Intake Total 133.167 Output Total 850 900 Balance -716.833 -900 Weight 121.9 kg Intake: Intake, IV Titration 133.167 Amount Heparin Sod,Pork in 0.45% 133.167 NaCl 25,000 unit In 0.45 % NaCl 1 250ml.bag @ 8. 926 UNITS/KG/HR 10 mls/hr IV .Q24H [facility] Rx#: [id number] Output: Urine 850 900 Other: Voiding Method Indwelling Catheter Indwelling Catheter # Bowel Movements 1 - Labs CBC & Chem 7: 08/30/24 06:00 08/29/24 05:00 Labs: Abnormal Lab Results - Last 24 Hours (Table) 08/29/24 08/29/24 08/29/24 Range/Units 06:00 12:27 12:30 WBC (4.50-10.00) 10*3/uL RBC (4.40-5.60) 10*6/uL Hct (39.6-50.0) % MCH (27.0-32.0) pg APTT 62.4 H (22.0-30.0) sec POC Glucose (mg/dL) 305 H (70-110) mg/dL Hemoglobin A1c 6.2 H (<=6.0) % 08/30/24 08/30/24 Range/Units 06:00 06:00 WBC 10.47 H (4.50-10.00) 10*3/uL RBC 4.29 L (4.40-5.60) 10*6/uL Hct 38.9 L (39.6-50.0) % MCH 32.6 H (27.0-32.0) pg APTT 54.6 H (22.0-30.0) sec POC Glucose (mg/dL) (70-110) mg/dL Hemoglobin A1c (<=6.0) %
[2024-08-30] MEDS: ALPRAZolam 1 MG TAB PO PRN (21:23)
[2024-08-31 08:57] LABS: HGB 14.8 g/dL (13.0-17.0); MCH 31.6 pg (27.0-32.0); MCHC 35.2 g/dL (32.0-37.0); MCV 89.7 fL (80.0-97.0); Platelet Count 181 10*3/uL (140-440); RBC 4.68 10*6/uL (4.40-5.60); RDW 12.7 % (11.5-14.5); WBC 8.07 10*3/uL (4.50-10.00)
[2024-08-31 09:12] LABS: African American GFR (CKD) >90 (>60 ml/min/1.73 sqM); Anion Gap 4 mmol/L; Blood Urea Nitrogen 26 mg/dL (9-20); Calcium 8.2 mg/dL (8.4-10.2); Carbon Dioxide 29 mmol/L (22-30); Chloride 106 mmol/L (98-107); Glucose 249 mg/dL (74-99); Non-African American GFR(CKD) >90 (>60 ml/min/1.73 sqM); Potassium 4.5 mmol/L (3.5-5.1); Sodium 139 mmol/L (137-145)
[2024-08-31] MEDS: IV FLUID CONTINUATION 1,000 ML IV ONE ×3 (10:31→10:32)
[2024-08-31 10:48] LABS: Glucose,Whole Blood 240 mg/dL (70-110)
[2024-08-31] MEDS ORDERED: HYDROmorphone 0.5 MG/0.5 ML SYRINGE IVP PRN (11:07)
--- NOTE | 2024-08-31 11:27 | P.PN ---
Subjective Progress Note Date: 08/31/24 Principal diagnosis: I have seen and evaluated the patient today. Discussed with the resident and agree with the residents finding and plan as documented in the resident's note. Changes highlighted in blue font. 08/24/24: Patient seen and examined at bedside today. He complains of pain on the right hip from a fall he sustained a few days ago when he started having the lower extremity weakness. Denies any other complaints. No acute events overnight. 08/25/24: Patient evaluated at bedside. No acute events overnight. He feels that his right upper extremity is more weak today and reports pain in the right buttock area from the fall. 08/26/24: Patient seen and examined today at bedside. He reports improvement in his left hand numbness, but feels his right hand is still weak. He also reports lower back pain above his right buttock. He mentions not having a bowel movement in 2-3 days. 08/27/24: Patient evaluated today. Patient maintained. N.p.o. after midnight for surgery today. He is anxious today due to the surgery. He reports not having a bowel movement yet. 08/28/24: Patient seen and examined at bedside today. He was taken for surgery yesterday but upon being intubated he went into Afib with RVR and the surgery was aborted. He is now in the ICU, being transferred to . He denies chest pain, palpitations. 08/29/24: Patient evaluated at bedside today. No acute events overnight. He had a bowel movement yesterday. He took his home med Ozempic and is refusing insulin sliding scale. 08/30 Patient was seen and examined. Nervous about upcoming surgery. Persistent RU and RLE weakness. Maintained on heparin drip at 10.926 units/kg/hr. CBC and Coag panel shows WBC 10.47, RBC 4.29, Hct 38.9, APTT 54.6. 08/31/24: Patient evaluated today. He was maintained NPO overnight and will und ergo surgery today. Patient is anxious about the surgery. Review of systems: Pertinent positives and negatives as discussed in HPI, a complete review of systems was performed and all other systems are negative. Vitals: Signs Reviewed and stable Physical examination: General: nontoxic, no distress, appears at stated age Derm: warm, dry, intact Head: atraumatic, normocephalic, symmetric Eyes: EOMI, anicteric sclera Mouth: no lip lesion, mucus membranes moist Cardiovascular: S1 S2 reg, no murmur Lungs: CTA bilateral, no rhonchi, no rales, no accessory muscle use Abdominal: soft, non-tender to palpataion Extremities: No cyanosis, clubbing, or pedal edema. Neuro: Alert, Oriented, Right upper and lower extremity strength 4 out of 5, Left upper and lower extremity strength 5 out of 5, Sensation to light touch similar on both upper and lower extremity. Psych: Anxious Data Reviewed Today: Labs: WBC 10.6, APTT 54.6, normal CBC, unremarkable BMP, blood glucose is not optimally controlled, patient refuses accuchecks and insulin injections, multiple times educated on risks by multiple team members including RN, resident physician Imaging: No new imaging Assessment/Plan: Patient is 78-year-old male with a history of coronary artery disease, chest pain, heart failure presents to the ER with right sided arm and leg numbness over the past 10 days. Patient found to have cervical spinal canal stenosis and orthopedic spine is consulted. He was taken for surgery yesterday but upon being intubated he went into Afib with RVR and the surgery was aborted. He is placed on Heparin drip. He is now in the ICU but is downgraded to 3S. Tentative plans for surgery on 08/31/24 Active: #. Spinal canal stenosis at C3-4, C4-5, L4-5 #. Acute ischemic infarct of the right frontal lobe, asymptomatic #. Right sided weakness #. Mild cardiomyopathy, EF 40-45% #. Small patent riley ovale #. 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 daily Continue IV solumedrol 125 mg Q6HR Aspirin and eliquis held for surgery Stop Heparin drip 8 hours prior to the surgery ACDF C3-C7 cancelled on 08/27/24 post induction due to patient going into Afib RVR Patient scheduled to undergo ACDF C3-C7 today 08/31/24 Continue telemetry monitoring Fall precautions PT, OT and speech therapy consulted Neurochecks every 4 hours Neurology is following, recommend deferring modification of steroid to Orthope dic team, holding off on PT/OT, until cleared by orthopedic surgery. Discussed with neurology, dr Leonard Cardiology is following, recommended If planned surgery is urgent, patient should move forward with this surgery as planned. intermediate to high risk for cardiovascular complications in the perioperative period Orthopedic spine surgery is following, recommend 24 hours postsurgery pending drain output okay for oral anticoagulant #. Atrial fibrillation with RVR Patient complained of left arm pain yesterday EKG independently interpreted as Afib with RVR, rate 109 bpm Continue Metoprolol tartrate to 50 mg PO BID Maintained on heparin drip, stop 8 hours prior to surgery Hold Eliquis for surgery Continue telemetry monitoring Cardiology is following #. HFrEF with EF 40-45%, not in exacerbation Consider the addition of ACEi + K sparing diuretic + SGLUT inhibitor after surgery. Cardiology is following #. Patent foramen ovale Deficit does not correlate to findings on MRI brain Cardiology is following #. Hyperglycemia Patient refusing sliding scale He took his home med Ozempic on 08/28/24 at approximately 1600 Monitor for hypoglycemia #. Hip pain secondary to fall due to weakness Hip and Pelvix Xray showed no acute osseous abnormalities Home med tramadol 100 mg p.o. twice daily resumed #. Constipation Senna added Continue MiraLAX #. Anxiety Xanax 1 mg PO BID PRN Chronic: #. GERD #. Hyperlipidemia #. CAD #. Neuropathy #. Hypertension #. Insomnia Continue Protonix 40 mg at bedtime, atorvastatin 80 mg daily, Furosemide 20 mg PO BID, Pregabalin 100 mg PO TID, melatonin 5 mg p.o. at bedtime as needed, fluticasone nasal spray F: None E: Replete as needed N: NPO A: Ambulatory DVT prophylaxis: Heparin drip GI prophylaxis: Protonix 40 mg PO HS Code status: Full Code Anticipated discharge place: Pending clinical course Anticipated discharge time: Pending clinical course Dictation was produced using [employer] dictation software. please excuse any grammatical, word or spelling errors. Cassius Bahena MD PGY-1 IM Objective - Vital Signs Vital signs: Vital Signs Temp 97.5 F L 08/31/24 03:48 Pulse 99 08/31/24 03:48 Resp 16 08/31/24 03:48 BP 137/91 08/31/24 03:48 Pulse Ox 95 08/31/24 03:48 FiO2 Intake & Output 08/30/24 08/31/24 08/31/24 18:59 06:59 18:59 Intake Total 540 Output Total 575 1225 Balance -35 -1225 Weight 119.1 kg Intake: Oral 540 Output: Urine 575 1225 Other: Voiding Method Indwelling Catheter Indwelling Catheter # Bowel Movements 1 - Labs CBC & Chem 7: 08/31/24 07:37 08/31/24 07:37 Labs: Abnormal Lab Results - Last 24 Hours (Table) 08/30/24 Range/Units 06:00 APTT 54.6 H (22.0-30.0) sec
[2024-08-31] MEDS: ONDANSETRON 4 MG/2 ML VIAL IVP ONE ×2 (11:35→16:27)
[2024-08-31] MEDS: LACTATED RINGERS 1,000 ML IV SCH ×2 (11:44)
[2024-08-31] MEDS ORDERED: KETAMINE HCL IN 0.9 % NACL 50 MG/5 ML SYRINGE ONE (12:39)
[2024-08-31] MEDS ORDERED: MIDAZOLAM 2 MG/2 ML VIAL ONE (12:39)
[2024-08-31] MEDS ORDERED: TRANEXAMIC 1,000 MG/100ML-NACL PREMIX BAG ONE (12:39)
[2024-08-31] MEDS ORDERED: SUCCINYLCHOLINE CHLORIDE 200 MG/10 ML VIAL IV ONE (12:39)
[2024-08-31] MEDS ORDERED: fentaNYL (PF) 50 MCG/ML 2 ML AMP ONE (12:39)
[2024-08-31] MEDS ORDERED: ROCURONIUM 10 MG/ML (5 ML VIAL) IV ONE (12:39)
[2024-08-31] MEDS ORDERED: PROPOFOL 10 MG/ML 20 ML VIAL IV ONE (12:39)
[2024-08-31] MEDS ORDERED: LIDOCAINE 1% INJ 10MG/ML (20 ML MDV) ONE (12:39)
[2024-08-31] MEDS ORDERED: SUGAMMADEX SODIUM 100 MG/ML SYR IV ONE (12:39)
[2024-08-31] MEDS ORDERED: METOPROLOL TARTRATE 5 MG/5 ML VIAL IVP ONE (12:39)
[2024-08-31 13:18] LABS: Glucose,Whole Blood 226 mg/dL (70-110)
[2024-08-31] MEDS: THROMBIN (BOVINE) 5,000 UNIT VIAL TOPICAL ONE (13:23)
--- NOTE | 2024-08-31 13:26 | P.ANPRN ---
Procedure Note - Anesthesia - Invasive Line Right Arterial Line Time Out Performed: Yes (1104) Date of Procedure: 08/31/24 Time of Procedure: 11:05 Location of Patient: PreOp Preparation: Sterile Prep, Sterile Dressing Arterial Line Location: Radial (right) Ultrasound Used: No Purpose - Visualization and Identification of Vasculature: No Needle Guage: 20g Image Stored and Saved: No Narrative: Invasive line placement per sterile protocol utilized. attempts x2. Lumen bled and flushed. Secured and dressed. Sterile protocol
--- NOTE | 2024-08-31 15:34 | XR ---
EXAMINATION TYPE: XR cervical spine limited, FL guidance operating room DATE OF EXAM: 08/31/2024 CLINICAL INDICATION: Male, 78 years old with history of C3-7 Fusion, pain TECHNIQUE: Fluoroscopy. Limited intraoperative views cervical spine. COMPARISON: MRI cervical spine August 25, 2024. FINDINGS: Fluoroscopic guidance was provided during C3-C7 fusion procedure performed by Dr. Corea on. A total of 26 seconds of fluoroscopic time was utilized during the procedure and 6 spot images w as acquired. TOTAL DAP = 1.1901 Gycm2. Images show placement of anterior fusion devices and artificial disc material at the C4-C5, C5-C6, an d C6-C7 levels. IMPRESSION: As Above. [facility], , 08/31/2024 3:32 PM
[2024-08-31] MEDS ORDERED: HYDROmorphone 1 MG/ML 1 ML SYRINGE IVP PRN (15:35)
--- NOTE | 2024-08-31 15:35 | P.OP ---
Date of Procedure: 08/31/24 Preoperative Diagnosis: 1. CERVICAL MYELOPATHY 2. C3-6 SEVERE STENOSIS WITH MYELOPATHY 3. 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 UE AND LE WEAKNESS 5. PARAPLEGIA Postoperative Diagnosis: 1. CERVICAL MYELOPATHY 2. C3-6 SEVERE STENOSIS WITH MYELOPATHY 3. 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 UE AND LE WEAKNESS 5. PARAPLEGIA Procedure(s) Performed: 1. C3-4 ANTERIOR CERVICAL ARTHRODESIS 2. C4-5 ANTERIOR CERVICAL ARTHRODESIS 3. C5-6 ANTERIOR CERVICAL ARTHRODESIS 4. C3-6 ANTERIOR CERVICAL INSTRUMENTATION 5. C3-4, C4-5, C5-6 INSERTION OF BIOMECHANICAL DEVICE, CAGE x3 USE OF IONM USE OF IO MICROSCOPE Implants: ZAKIA SECURE C; 12, 14 MM SCREW/PLATE MAGANATOS, AUTOGRAFT Anesthesia: GETA Surgeon: Latrell Lagos Twisting Machine Operator #1: Ran Ontiveros (WAS PRESENT AND ASSISTED WITH ALL ASPECTS OF THE CASE FROM POSITION TO DRESSING PLACEMENT) Estimated Blood Loss (ml): 50 IV fluids (ml): 1,000 Urine output (ml): 250 Pathology: none sent Condition: stable Disposition: PACU Indications for Procedure: GO WHITE is a 78 YO MALE presenting for evaluation of UE AND LE WEAKNESS, ACUTE INABILITY TO AMBULATE, HYPERREFLEXIA, STROKE LIKE SX, NECK PAIN, SHOULDER PAIN ARM PAIN THAT HAS BEEN GOING ON FOR SOME TIME NOW BUT GOT ACUTELY WORSE 5 DAYS AGO AND HE HAS NOT WALKED SINCE. HE WAS INITIALLY WORKED UP FOR STROKE BEFORE SPINE WAS CONSULTED . It was my pleasure to have seen and examined GO WHITE. In our visit today we have had a chance to go over subjective complaints, physical examination findings and treatments including the natural course history without intervention and various interventional options. 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 Based on the patients imaging, physical exam, and the rapid progression and disabling nature of their symptoms, at this time I recommend surgery in the form of a: C3-7 ANTERIOR CERVICAL DISCECTOMY AND FUSION. I discussed the risk and benefits of this procedure at length with GO WHITE. The patient has agreed to consider pursuing the procedure above mentioned. Prior to surgery, they should follow up with her PCP (Cardio, ID, IM etc) for clearance. Questions were invited and answered, and the patient wishes to proceed as outlined below. Currently, I am recommending: C3-7 ANTERIOR CERVICAL DISCECTOMY AND FUSION Obtain appropriate presurgical workup and clearances as discussed with the patient. Review of surgical risks and benefits as well as an educational packet on the proposed surgical procedure. Risks: All surgical procedures come with inherent risks, including those related to positioning, anesthesia, intraoperative findings, and postoperative complications. It is important to understand that surgery does not come with any guarantee of a successful outcome as complications and adverse events are always possible. The patient was given a handout in the office today discussing the surgical procedure and risks associated with the intervention, both of which were discussed with the patient. These risks include but are not limited to the following: Experiencing same, different or even worse symptoms in back, neck, arms, or legs compared to before surgery. Requiring further surgery or other forms of treatment presently or at some time in the future at same or other levels of the intended spine surgery. On an extreme but fortunately relatively rare basis severe complications such as blindness, stroke, heart attack, temporary and/or permanent nerve injury, paralysis, coma, or may occur, sometimes without known explanatio n. Surgical complications may include but are not limited to risk of infection, fluid accumulation in the surgical dissection site, including a seroma or hematoma, that requires additional surgery, wound drainage, bleeding, new numbness or weakness, vision changes/loss, spinal fluid leakage, non-healing and/or infected incision, headaches, difficulty or inability to swallow, hoarseness, hemopneumothorax, pneumothorax, impotence, retrograde ejaculation, vaginal dryness; injury to nerves, spinal cord, blood vessels, lymphatics or other vital organs (i.e., bowel injury, injury to the great vessels); heterotopic bone formation; complications related to the hardware such as screws, rods, cages including misplaced hardware, device failure, instrumentation at the wrong spine level, hardware fracture/breakage, or hardware loosening; vertebral failure of the spinal column above or below the newly placed hardware; retained surgical instrumentations or devices and the need for further surgery. Medical risks of the planned spine surgery include but are not limited to generalized Infections to the whole body or local areas outside of the surgical site (sepsis), heart attack, bleeding, anaphylaxis, meningitis, seizure, epilepsy, hearing loss, burn jaime, laceration of the head or other areas of the body, bruising, hypersensitivity of the skin, bladder over distension; allergic reaction; shoulder injury related to positioning; fat, blood and air clots to other areas of the body like heart, lungs, brain; failure of internal organs such as lungs, kidneys, liver and excessive bleeding. If blood transfusions are necessary, note that transfusions may cause intolerance reactions such as anaphylaxis or other complex reactions. Despite best efforts, the results of spine surgery might not heal in terms of bone, soft tissues such as skin, fascia, ligaments, and joints. Additionally, in order to achieve best possible results, spine surgery may be carried out beyond the initially planned levels and involve decompression, fusion including insertion of hardware at levels other than the original intended area of surgical interest change some portions of the procedure in order to ensure the best possible outcomes. With spine surgery and spinal fusion, there are different off label uses of instrumentation (devices, implants and hardware) as well as biological substances (bone morphogenic proteins, demineralized bone matrix) as well as using extra bone from allograft sources (i.e. cadaver bone) or autograft (iliac crest bone, ribs, or the spine itself). The patient has been given information about these practices and their inherent risks and benefits. The patient has had a chance to review all the listed information, has been given print outs detailing this information, and has had all his/her questions answered to their satisfaction. It was my pleasure to have seen and examined GO WHITE. In our visit today we have had a chance to go over my understanding of our patient's current condition, the natural course history without intervention and various interventional options. Questions were invited and answered, and the patient wishes to proceed as outlined above. I have seen and examined the patient for 25 minutes and we have spent more than 50% of the time in repeat and detailed counseling about the patient's condition, its natural course history without and as much as can be predicted with surgery and re-review of various surgical treatment options. In conclusion, GO WHITE and their family requested we proceed with the above suggested surgery and are willing to accept risks and limitations of the suggested surgery as the nature of the disease process and our best attempts at treatment for the condition. In our visit today the patient and I have had a chance to go over my understanding of their current condition, the natural course history without intervention and various interventional options. Questions were invited and answered, and the patient wishes to proceed as outlined above. I will be sure to keep you updated after the patient returns here for further follow-up. Thank you again for your referral. Please do not hesitate to contact me if you have any further questions. Description of Procedure: C3-6 ACDF plate screws The patient was seen and examined in the preoperative area. All preoperative protocols were followed. Informed consent was obtained, risks and benefits of the procedure were discussed at length. Risks including bleeding infection damage to the surrounding tissue and risk of reoperation were discussed with the patient. Risk of anesthesia up to and including was discussed with the patient. These are outlined in the risk review. They were willing to accept t hese risks and all the risks of surgery. The patient was given a weight-based dose of antibiotics in the form of 2 g Ancef. The patient was seen and evaluated by the anesthesia team who deemed them fit for surgery. The site was marked, the patient was willing to proceed with the procedure. The patient was transferred to the operative suite by the Department of anesthesia. They were then drifted off to sleep by the department anesthesia and GETA was performed. The patient tolerated this well. Cuadra catheter was placed by nursing staff, a-traumatically. Once confirmation of lines and vent ilation the patient was transferred to a Supine Wolfgang table very carefully. All bony prominences including wrists, elbows, axilla, chest, hips, and thighs, and feet were padded very well. Special attention was paid to the genitalia, and these were padded accordingly. SCDs were placed on bilateral lower extremities and were connected. Arms were well padded and placed at their side thumbs up. Once in position, again we confirmed good ventilation capabilities and that lines were running appropriately. The patients Cervical spine was then exposed. 1010s were placed outlining the incision site. Standard alcohol was used to clean the incision site and allowed to dry. C-arm was used to bio- leanne the patient and confirm level for incision which was marked with a skin marker. Operative briefing was performed with all teams and everyone in agreement to proceed. The patient was then prepped and draped in a normal sterile fashion. Timeout was then performed, and all parties agreed with the procedure to be performed. Transverse skin incision was then made on the right side of the patient's neck 3 cm and dissection taken down to the platysma which was split transversely. Sub platysma flap was made, and interval identified between SCM and medial structures. Omohyoid was visualized and protected. Blunt dissection taken down to the anterior cervical fascia which was identified. Blunt prob was then placed and lateral image taken which confirmed levels for operation. These levels were then marked with a bovi. Subperiosteal dissection of the longissimus muscles were then done over these levels identifying uncovertebral joints bilaterally. Retractor was then placed deep to these muscles and held in place with a bed arm. Perham pins were placed into C3 and C4 and gentle distraction taken out over the levels. Yuong rongeur used to remove disc material. Operating microscope brought in for visualization. Complete discectomy performed at this level with curette, rongure and pituitary. High speed ralph used to remove osteophytes anteriorly and posteriorly until PLL was identified. 6-0 up curette then used to identify the canal and ressect the PLL. 2-0 and 3-0 Kerrison used then to remove PLL and disc herniation and performed b/l foraminotomies. Once good decompression was accomplished, meticulous hemostasis was performed. Sizers were then placed under lateral fluoroscopy until the desired height and lordosis. Cage was then selected, packed with autograft and allograft and placed under lateral imaging. Once in good position it was tested and stable. Motors run before and after cage placement were stable. The wound was irrigated, and autograft placed lateral to the cage anteriorly for fusion. Perham pin was then removed from C3 and placed into C5 and bone wax placed in their void. Gentle distraction taken out over C4-5 now. Complete discectomy done at C4-5 as described including decompression, b/l foraminotomies and PLL resection. Ralph ing of endplates was minimal, osteophytes removed as described. Spacers were then sized and placed under lateral imaging. Cage selected, packed with graft and placed under lateral images. Once in position, meticulous hemostasis performed, and motors remained stable before and after cage placement. AP image confirmed good placement of cages. Wound was irrigated. At C5-6, Perham pins were placed into C5 and C6 and gentle distraction taken out over the levels. Young rongeur used to remove disc material. Operating microscope brought in for visualization. Complete discectomy performed at this level with curette, rongure and pituitary. High speed ralph used to remove osteophytes anteriorly and posteriorly until PLL was identified. 6-0 up curette then used to identify the canal and ressect the PLL. 2-0 and 3-0 Kerrison used then to remove PLL and disc herniation and performed b/l foraminotomies. Once good decompression was accomplished, meticulous hemostasis was performed. Siz ers were then placed under lateral fluoroscopy until the desired height and lordosis. Cage was then selected, packed with autograft and allograft and placed under lateral imaging. Once in good position it was tested and stable. Motors run before and after cage placement were stable. The wound was irrigated, and autograft placed lateral to the cage anteriorly for fusion. Anterior instrumentation was then done at each level with awl and dril followed by plate and screw placement. All locking mechanisms were set, and all screws had good purchase. Final AP and lateral images taken confirmed good placement of hardware and good reduction and episcopal of height. The wound was then irrigated copiously with NSS. Surgicel placed deep in the wound. A deep drain placed out a separate incision and sewed into place. Layered closure then performed with 3-0 Vicryl in the platysma and sub-Q tissue. 2-0 Nylon placed in the skin The wound was then cleaned, dried and skin glue placed. Once glue dried telfa, 4x4, and tegaderms were placed for dressing. The patient was then transferred back to their hospital bed a-traumatically. The drain continued to hold suction. They were placed in a soft collar. They were then awakened by the department of anesthesia having tolerated the procedure well without complications.
[2024-08-31 15:56] LABS: Glucose,Whole Blood 216 mg/dL (70-110)
[2024-08-31] MEDS: DEXAMETHASONE SOD PHOSPHATE 4 MG/ML 1 ML VIAL IV ONE ×2 (16:27)
[2024-08-31] MEDS: TRANEXAMIC 1,000 MG/100ML-NACL 1,000 MG in SALINE 1 100ML.BAG IVPB ONE ×2 (16:27→16:28)
[2024-08-31] MEDS: ceFAZolin 2 GM in DEXTROSE 5% IN WATER 50 ML IVPB ONE (16:28)
[2024-08-31] MEDS: HYDROmorphone 0.5 MG/0.5 ML SYRINGE IVP PRN ×2 (18:14→21:48)
[2024-08-31] MEDS: ceFAZolin 2 GM in DEXTROSE 5% IN WATER 50 ML IVPB SCH (21:49)
--- NOTE | 2024-08-31 22:34 | CT ---
EXAMINATION TYPE: CT cervical spine wo con DATE OF EXAM: 08/31/2024 COMPARISON: MRI cervical spine August 25, 2024 CLINICAL INDICATION: Male, 78 years old with history of s/p cervical fusion, Post op cervical fusion, pain TECHNIQUE: CT scan of the cervical spine is obtained without contrast, axial images are obtained, sa gittal and coronal reformatted images are also reviewed. CT DLP: 638.7 mGycm. Automated Exposure Control for Dose Reduction was Utilized. Contrast: , patient injected with mL of ., (none if empty) FINDINGS: Cervical spine is visualized in its entirety from C1 through upper thoracic levels, there i s new surgical change with anterior fusion spacer C3-C4, C4-C5, and C5-C6 levels. Hardware position i s felt satisfactory. Alignment is stable and satisfactory. Vertebral body heights and disc space heig hts are satisfactory above the below surgical levels. Spinal canal is preserved. There is right-sided percutaneous drainage catheter with ill-defined fluid and air terminating at anterior C5 vertebral b michelle level. Review of axial images shows persistent multilevel uncovertebral and facet degenerative changes bilat erally. Upper lungs are clear without pneumothorax. Degenerative change right sternoclavicular joint is present. IMPRESSION: Postsurgical change C3-C6 level with stable and satisfactory alignment. No obvious compli cation noted. [facility], , 08/31/2024 10:32 PM
[2024-09-01 04:39] LABS: HCT 40.4 % (39.6-50.0); HGB 14.2 g/dL (13.0-17.0); MCH 31.5 pg (27.0-32.0); MCHC 35.1 g/dL (32.0-37.0); MCV 89.6 fL (80.0-97.0); Mean Platelet Volume 11.5 fL (9.5-12.2); Platelet Count 167 10*3/uL (140-440); RBC 4.51 10*6/uL (4.40-5.60); RDW 12.8 % (11.5-14.5); WBC 12.25 10*3/uL (4.50-10.00)
[2024-09-01 04:42] LABS: African American GFR (CKD) >90 (>60 ml/min/1.73 sqM); Anion Gap 4 mmol/L; Blood Urea Nitrogen 31 mg/dL (9-20); Calcium 8.2 mg/dL (8.4-10.2); Carbon Dioxide 30 mmol/L (22-30); Chloride 102 mmol/L (98-107); Glucose 251 mg/dL (74-99); Non-African American GFR(CKD) >90 (>60 ml/min/1.73 sqM); Potassium 4.3 mmol/L (3.5-5.1); Sodium 136 mmol/L (137-145)
[2024-09-01] MEDS: SENNOSIDES-DOCUSATE SODIUM 1 EACH TAB PO SCH (08:28)
--- NOTE | 2024-09-01 09:44 | P.PN ---
Progress Note - Text Progress Note Date: 09/01/24 David Tom 09/01, a 62-year-old male, is seen for the first time post-operatively following a C3 to C6 Anterior Cervical Discectomy and Fusion (ACDF) performed yesterday. The patient reports feeling "pretty damn good" and "excellent" overall. He denies any pain or difficulty swallowing. When asked to perform [id number] movements, the patient notes that his performance is "not as good as I should," indicating some residual coordination issues in the upper extremities. Objective 1. Vital Signs: STABLE 2. General Appearance: Patient appears comfortable but initially in a suboptimal position, which was adjusted during the examination. 3. Physical Examination: - Neurological: - Cranial nerves: Grossly intact - Upper extremities: 4-/5 strength in all major muscle groups bilaterally - Lower extremities: Sustained clonus, less brisk - Martini's sign: Present bilaterally, less brisk - Babinski's sign: Absent bilaterally - Surgical Site: - Drain: In place with minimal output - Dressing: Clean, dry, and intact - Incision: Clean, dry, and intact - No erythema, ecchymosis, or edema - Minimal swelling - ENT: - Voice: Robust without issue - Swallowing: Good Assessment 1. Cervical Stenosis with Myelopathy, status post C3 to C6 Anterior Cervical D iscectomy and Fusion (ACDF) - Supporting findings: - Post-operative day one following C3 to C6 ACDF - Residual upper extremity weakness (4-/5 strength bilaterally) - Persistent upper motor neuron signs (Martini's sign, clonus) - Improved subjective symptoms ("feeling excellent") - Surgical intervention completed without reported complications Plan 1. Post-operative Care for Cervical Stenosis with Myelopathy, status post C3 to C6 ACDF - Activity: - Increase ambulation as tolerated - No lifting, bending, twisting, pushing, or pulling greater than 10 lbs - Medications: - Resume heparin drip today - Provide pain control as needed - Wound Care: - Maintain surgical drain for now - Remove drain after 24 hours on heparin drip - Prophylaxis: - Continue GI DVT prophylaxis - Monitoring: - Continue medical management - Follow patient during hospital stay - Patient Education: - Instruct patient to continue practicing [id number] coordination exercises - Follow-up: - Ongoing assessment during inpatient stay - Schedule outpatient follow-up appointment (timing to be determined)
--- NOTE | 2024-09-01 12:42 | P.PN ---
Subjective HISTORY OF PRESENT ILLNESS: This is a 78-year-old male patient with past medical history of chronic atrial fibrillation on Eliquis, chronic systolic heart failure, diabetes mellitus type 2, hyperlipidemia. Patient states that he came into the hospital due to dizziness and weakness on the right side of his body. He states he saw chiropractor last Saturday but his states that he was having difficulty he had to require wheelchair to get him to the car. Patient has seen a software publisher in the past and the last time was 6 years ago in [place] prior to knee surgery. He apparently had a stress test done at that time which he reports is normal. Patient has seen Dr. Carrillo in the past in 2012 with no follow-up. Patient states that he is not very active. When he is active he does not have chest pain. No shortness of breath. Patient recently has been off Eliquis because his ortiz went from $18-$490 per month. Patient presented to the hospital on 08/21. He had significant workup done which found severe cervical stenosis. Patient has been started on IV steroids and is scheduled for surgery today with Dr. Lagos. Patient's last dose of Eliquis was on 08/26 AM. -EKG: Atrial fibrillation with RVR 109 bpm obtained on 08/26. -Chest x-ray: Mild cardiomegaly. Interstitial prominence may be technical due to technique body habitus. -Laboratory studies: -Home cardiac medications: Lasix 20 mg twice daily, metoprolol succinate 25 mg daily, pravastatin 20 mg at bedtime. -Echocardiogram performed at [facility] on 08/21/2024 revealed EF 40 to 45%. Moderate RV enlargement. Biatrial enlargement. No [id number] shunting noted on bubble study. Left or right Doppler flow signal suggest small PFO with [id number] shunt. 09/01/2024 Patient examined this morning at the bedside. Patient is status post cervical surgery with Dr. Lagos. Patient is currently sitting up in the chair. Patient denies any chest pain or pressure. He denies shortness of breath. Vital signs are stable. PHYSICAL EXAM: VITAL SIGNS: Reviewed. GENERAL: Well-developed in no acute distress. NECK: Supple. No JVD or thyromegaly LUNGS: Respirations even and unlabored. Lungs essentially clear to auscultation bilaterally. HEART: Irregular rate and rhythm. S1 and S2 heard. EXTREMITIES: Normal range of motion. No clubbing or cyanosis. Peripheral pulses intact. No lower extremity edema ASSESSMENT: Cervical spine stenosis status post surgical intervention MRI revealed lacunar infarct posterior right frontal lobe likely clinically asymptomatic, not confirmed on MRI and neurology feels symptoms due to severe cervical stenosis with myelopathy Persistent atrial fibrillation Diabetes Coronary artery disease Chronic systolic heart failure Poor functional capacity PLAN: Case discussed with YADI Solorzano with orthopedics. Okay to resume anticoagulation with Pradaxa 150 mg twice a day Continue additional cardiac medications including Lipitor and metoprolol Patient is currently stable from a cardiac standpoint Further recommendations pending patient course. Nurse practitioner note has been reviewed by physician. Signing provider agrees with the documented findings, assessment, and plan of care documented by MAKEUP INSTRUCTOR as a scribe. Objective - Vital Signs Vital signs: Vital Signs Temp 97.7 F 09/01/24 07:10 Pulse 103 H 09/01/24 07:10 Resp 18 09/01/24 07:10 BP 130/76 09/01/24 07:10 Pulse Ox 92 L 09/01/24 07:10 FiO2 Intake & Output 08/31/24 09/01/24 09/01/24 18:59 06:59 18:59 Intake Total 2000 Output Total 553 500 Balance 1447 -500 Weight 126.5 kg Intake: IV 1750 Intake, IV Titration 250 Amount Heparin Sod,Pork in 0.45% 250 NaCl 25,000 unit In 0.45 % NaCl 1 250ml.bag @ 8. 926 UNITS/KG/HR 10 mls/hr IV .[facility] Rx#: [id number] Oral 0 Output: Drainage 3 Anterior Neck 3 Urine 500 500 Stool 0 Estimated Blood Loss 50 Other: Voiding Method Indwelling Catheter Indwelling Catheter - Labs CBC & Chem 7: 09/01/24 02:59 09/01/24 02:59 Labs: Abnormal Lab Results - Last 24 Hours (Table) 08/31/24 08/31/24 09/01/24 Range/Units 13:17 15:55 02:59 WBC 12.25 H (4.50-10.00) 10*3/uL Sodium (137-145) mmol/L BUN (9-20) mg/dL Glucose (74-99) mg/dL POC Glucose (mg/dL) 226 H 216 H (70-110) mg/dL Calcium (8.4-10.2) mg/dL 09/01/24 Range/Units 02:59 WBC (4.50-10.00) 10*3/uL Sodium 136 L (137-145) mmol/L BUN 31 H (9-20) mg/dL Glucose 251 H (74-99) mg/dL POC Glucose (mg/dL) (70-110) mg/dL Calcium 8.2 L (8.4-10.2) mg/dL
[2024-09-01] MEDS: DABIGATRAN 150 MG CAP PO SCH (12:59)
--- NOTE | 2024-09-01 16:35 | P.PN ---
Subjective Progress Note Date: 09/01/24 Principal diagnosis: 08/24/24: Patient seen and examined at bedside today. He complains of pain on the right hip from a fall he sustained a few days ago when he started having the lower extremity weakness. Denies any other complaints. No acute events over night. 08/25/24: Patient evaluated at bedside. No acute events overnight. He feels that his right upper extremity is more weak today and reports pain in the right buttock area from the fall. 08/26/24: Patient seen and examined today at bedside. He reports improvement in his left hand numbness, but feels his right hand is still weak. He also reports lower back pain above his right buttock. He mentions not having a bowel movement in 2-3 days. 08/27/24: Patient evaluated today. Patient maintained. N.p.o. after midnight for surgery today. He is anxious today due to the surgery. He reports not having a bowel movement yet. 08/28/24: Patient seen and examined at bedside today. He was taken for surgery yesterday but upon being intubated he went into Afib with RVR and the surgery was aborted. He is now in the ICU, being transferred to . He denies chest pain, palpitations. 08/29/24: Patient evaluated at bedside today. No acute events overnight. He had a bowel movement yesterday. He took his home med Ozempic and is refusing insulin sliding scale. 08/30 Patient was seen and examined. Nervous about upcoming surgery. Persistent RU and RLE weakness. Maintained on heparin drip at 10.926 units/kg/hr. CBC and Coag panel shows WBC 10.47, RBC 4.29, Hct 38.9, APTT 54.6. 08/31/24: Patient evaluated today. He was maintained NPO overnight and will undergo surgery today. Patient is anxious about the surgery. 09/01/24: Patient seen and examined at bedside today on the med surg floor. He reports residual right upper and lower extremity weakness. He has not had a bowel movement today. Review of systems: Pertinent positives and negatives as discussed in HPI, a complete review of systems was performed and all other systems are negative. Vitals: Signs Reviewed and stable Physical examination: General: nontoxic, no distress, appears at stated age Derm: warm, dry, intact Head: atraumatic, normocephalic, symmetric Eyes: EOMI, anicteric sclera Mouth: no lip lesion, mucus membranes moist Cardiovascular: S1 S2 reg, no murmur Lungs: CTA bilateral, no rhonchi, no rales, no accessory muscle use Abdominal: soft, non-tender to palpataion Extremities: No cyanosis, clubbing, or pedal edema. Neuro: Alert, Oriented, Right upper and lower extremity strength 4 out of 5, Left upper and lower extremity strength 5 out of 5, Sensation to light touch similar on both upper and lower extremity. Psych: Anxious Data Reviewed Today: Labs: WBC 12.25, hemoglobin 14.2, sodium 136, BUN 31, glucose 251 Imaging: No new imaging Assessment/Plan: Patient is 78-year-old male with a history of coronary artery disease, chest pain, heart failure presents to the ER with right sided arm and leg numbness over the past 10 days. Patient found to have cervical spinal canal stenosis and orthopedic spine is consulted. He was taken for surgery yesterday but upon being intubated he went into Afib with RVR and the surgery was aborted. He is placed on Heparin drip. He is now in the ICU but is downgraded to 3S. Tentative plans for surgery on 08/31/24 Active: #. Spinal canal stenosis at C3-4, C4-5, L4-5 #. S/p ACDF C3-C7 #. Right sided weakness #. Acute ischemic infarct of the right frontal lobe, asymptomatic #. Small patent riley ovale #. Leukocytosis, likely steroid induced Brain MRI shows acute 2 mm lacunar infarct posterior right frontal lobe along the premotor cortex Cervical and lumbar spine MRI shows central stenosis with cervical spinal cord compressive myelopathy at C3-4 and C4-5, extruded disc herniation noted at C7- T1, severe central stenosis at L4-5, multilevel degenerative disc disease ACDF C3-C7 cancelled once on 08/27/24 post induction due to patient going into Afib RVR Continue atorvastatin 80 mg p.o. daily Continue IV solumedrol 125 mg Q6HR Continue Dialudid, [place] for pain management per primary surgical team along with Senokot for constipation Continue telemetry monitoring Fall precautions PT, OT and speech therapy consulted Neurochecks every 4 hours Neurology is following, recommend deferring modification of steroid to Orthopedic team, holding off on PT/OT until cleared by orthopedic surgery. Cardiology is following, recommend resuming Pradaxa 150 mg BID Orthopedic spine surgery is following, recommend to maintain surgical drain for now, remove drain after 24 hours on heparin drip #. Atrial fibrillation with RVR Patient complained of left arm pain yesterday EKG independently interpreted as Afib with RVR, rate 109 bpm Continue Metoprolol tartrate to 50 mg PO BID Home med Pradaxa 150 mg BID resumed Continue telemetry monitoring Cardiology is following #. HFrEF with EF 40-45% Consider the addition of SGLT2 inhibitor after surgery. Cardiology is following #. Hyperglycemia, likely secondary to steroids Patient refusing sliding scale He took his home med Ozempic on 08/28/24 at approximately 1600 Monitor for hypoglycemia #. Hip pain secondary to fall due to weakness Hip and Pelvix Xray showed no acute osseous abnormalities Home med tramadol 100 mg p.o. twice daily resumed #. Constipation Senna added Continue MiraLAX #. Anxiety Xanax 1 mg PO BID PRN Chronic: #. GERD #. Hyperlipidemia #. CAD #. Neuropathy #. Hypertension #. Insomnia Continue Protonix 40 mg at bedtime, atorvastatin 80 mg daily, Furosemide 20 mg PO BID, Pregabalin 100 mg PO TID, melatonin 5 mg p.o. at bedtime as needed, fluticasone nasal spray F: LR at 20 ml/hr E: Replete as needed N: Regular diet A: Increase ambulation as tolerated, No lifting, bending, twisting, pushing, or pulling greater than 10 lbs DVT prophylaxis: Pradaxa 150 mg PO BID GI prophylaxis: Protonix 40 mg PO HS Code status: Full Code Anticipated discharge place: Pending clinical course Anticipated discharge time: Pending clinical course Dictation was produced using [employer] dictation software. please excuse any grammatical, word or spelling errors. Cassius Bahena MD PGY-1 IM I saw and evaluated the patient during the geiger and critical portions of this encounter, and discussed the case in detail with the resident author of this note, I agree with the Assessment and Plan, and my changes, if any, are highlighted in blue. Objective - Vital Signs Vital signs: Vital Signs Temp 97.4 F L 09/01/24 14:00 Pulse 84 09/01/24 14:00 Resp 18 09/01/24 14:00 BP 134/91 09/01/24 14:00 Pulse Ox 93 L 09/01/24 14:00 FiO2 Intake & Output 08/31/24 09/01/24 09/01/24 18:59 06:59 18:59 Intake Total 2000 Output Total 553 500 Balance 1447 -500 Weight 126.5 kg Intake: IV 1750 Intake, IV Titration 250 Amount Heparin Sod,Pork in 0.45% 250 NaCl 25,000 unit In 0.45 % NaCl 1 250ml.bag @ 8. 926 UNITS/KG/HR 10 mls/hr IV .Q24H [facility] Rx#: [id number] Oral 0 Output: Drainage 3 Anterior Neck 3 Urine 500 500 Stool 0 Estimated Blood Loss 50 Other: Voiding Method Indwelling Catheter Indwelling Catheter - Labs CBC & Chem 7: 09/01/24 02:59 09/01/24 02:59 Labs: Abnormal Lab Results - Last 24 Hours (Table) 09/01/24 09/01/24 Range/Units 02:59 02:59 WBC 12.25 H (4.50-10.00) 10*3/uL Sodium 136 L (137-145) mmol/L BUN 31 H (9-20) mg/dL Glucose 251 H (74-99) mg/dL Calcium 8.2 L (8.4-10.2) mg/dL
[2024-09-01] MEDS: HYDROcodone/APAP 7.5-325MG 1 EACH TAB PO PRN (17:08)
[2024-09-01] MEDS: DILTIAZEM 125 MG in DEXTROSE 5% IN WATER 100 ML IV SCH (19:34)
--- NOTE | 2024-09-02 11:18 | P.PN ---
Subjective Progress Note Date: 09/02/24 Principal diagnosis: Bilateral upper and lower extremity weakness, cervical myelopathy, severe spondylosis with stenosis Patient was evaluated today at bedside, he is resting sitting up in his hospital chair. Patient is definitely feeling a little worse today with regards to ov erall pain, weakness and tiredness. The drain to the anterior neck has continued to subside, he has been restarted on oral anticoagulants. Discussed with internal medicine today at bedside, they have transitioned him to oral steroids and will continue to decrease this as he is discharged. Patient feels that the hands are moving a little bit better compared to yesterday. The urinary catheter remains in place. Patient denies any headaches, lightheadedness, chest pain or shortness of breath Objective - Vital Signs Vital signs: Vital Signs Temp 97.4 F L 09/02/24 08:00 Pulse 71 09/02/24 08:00 Resp 16 09/02/24 08:00 BP 156/92 09/02/24 08:00 Pulse Ox 93 L 09/02/24 08:00 FiO2 Intake & Output 09/01/24 09/02/24 09/02/24 18:59 06:59 18:59 Output Total 1500 500 Balance -1500 -500 Weight 126.5 kg Output: Urine 1500 500 Uretheral (Cuadra) 500 Stool 0 Other: Voiding Method Indwelling Catheter Indwelling Catheter # Voids 900 1 - Exam Gen: AOx3, NAD VSS stable at this time Integument: Cervical incision is well-healing, bandage and drain are in good position Palpation: Mild tenderness with palpation to the paraspinal cervical and lumbar region ROM: Left upper extremity left lower extremity demonstrate full range of motion in all major muscle groups, no focal deficits appreciated Right upper extremity patient has difficulty with shoulder elevation along with finger intrinsics. Right lower extremity demonstrates difficulty with hip flexion Sensory Exam: Senory exam to light touch is intact C5-T1 Senosry exam to light touch is intact L2-S1 Motor: Left upper extremity-shoulder elevation 4+/5, biceps/triceps 4+/5, wrist extension/wrist flexion 4/5, finger intrinsics 4/5 Right upper extremity-shoulder elevation 3+/5, biceps/triceps 4-/5, wrist extension/wrist flexion 4-/5, finger intrinsics 3+/5 Left lower extremityhip flexion 4 -/5, knee extension/knee flexion 4-/5, plantarflexion/dorsiflexion 5/5 EHL/FHL 5/5 Right lower extremity-hip flexion 4-/5, knee extension/knee flexion 4-/5, fabian ntarflexion/dorsiflexion 5/5, EHL/FHL 5/5 Reflexes: Positive Michael's bilaterally, right worse than left Positive clonus bilaterally 23 beats Special Test: Logroll maneuver reproduces no groin pain - Labs CBC & Chem 7: 09/01/24 02:59 09/01/24 02:59 Assessment and Plan Assessment: Postoperative day #2 status post ACDF C3C6 Bilateral upper extremity weakness, right worse than left Bilateral lower extremity weakness, right worse than left Cervical myelopathy Multilevel cervical spondylosis Cervical stenosis, significant levels C3-C4, C4-C5 C7-T1 HNP Multilevel lumbar spondylosis Lumbar spinal stenosis L4-L5 Plan: Pain control, continue current medications Diabetic diet DVT prophylaxis, continue current medication PT/OT Cervical hard collar at all times, weight-bear as tolerated with [place] Other medical specialty recommendations appreciated Will pull drain either later today or first thing tomorrow morning Discharge planning: Anticipate discharge to subacute rehab in the next 24-48 hours Time with Patient: Less than 30
--- NOTE | 2024-09-02 12:05 | P.PN ---
Subjective Progress Note Date: 09/02/24 Principal diagnosis: 08/24/24: Patient seen and examined at bedside today. He complains of pain on the right hip from a fall he sustained a few days ago when he started having the lower extremity weakness. Denies any other complaints. No acute events over night. 08/25/24: Patient evaluated at bedside. No acute events overnight. He feels that his right upper extremity is more weak today and reports pain in the right buttock area from the fall. 08/26/24: Patient seen and examined today at bedside. He reports improvement in his left hand numbness, but feels his right hand is still weak. He also reports lower back pain above his right buttock. He mentions not having a bowel movement in 2-3 days. 08/27/24: Patient evaluated today. Patient maintained. N.p.o. after midnight for surgery today. He is anxious today due to the surgery. He reports not having a bowel movement yet. 08/28/24: Patient seen and examined at bedside today. He was taken for surgery yesterday but upon being intubated he went into Afib with RVR and the surgery was aborted. He is now in the ICU, being transferred to . He denies chest pain, palpitations. 08/29/24: Patient evaluated at bedside today. No acute events overnight. He had a bowel movement yesterday. He took his home med Ozempic and is refusing insulin sliding scale. 08/30 Patient was seen and examined. Nervous about upcoming surgery. Persistent RU and RLE weakness. Maintained on heparin drip at 10.926 units/kg/hr. CBC and Coag panel shows WBC 10.47, RBC 4.29, Hct 38.9, APTT 54.6. 08/31/24: Patient evaluated today. He was maintained NPO overnight and will undergo surgery today. Patient is anxious about the surgery. 09/01/24: Patient seen and examined at bedside today on the med surg floor. He reports residual right upper and lower extremity weakness. He has not had a bowel movement today. 09/02/24: Patient evaluated at bedside. He reports improvement in his weakness. He mentions having regular bowel movements. Review of systems: Pertinent positives and negatives as discussed in HPI, a complete review of systems was performed and all other systems are negative. Vitals: Signs Reviewed and stable, BP 148/88 Physical examination: General: nontoxic, no distress, appears at stated age Derm: warm, dry, intact Head: atraumatic, normocephalic, symmetric Eyes: EOMI, anicteric sclera Mouth: no lip lesion, mucus membranes moist Cardiovascular: S1 S2 reg, no murmur Lungs: CTA bilateral, no rhonchi, no rales, no accessory muscle use Abdominal: soft, non-tender to palpataion Extremities: 1+ pitting edema b/l LE, No cyanosis, clubbing Neuro: Alert, Oriented, Right upper and lower extremity strength 4 out of 5, Left upper and lower extremity strength 5 out of 5, Sensation to light touch similar on both upper and lower extremity. Psych: Anxious Data Reviewed Today: Labs: WBC 12.25, sodium 136, BUN 31, glucose 251 Imaging: No new imaging Assessment/Plan: Patient is 78-year-old male with a history of coronary artery disease, chest pain, heart failure presents to the ER with right sided arm and leg numbness over the past 10 days. Patient found to have cervical spinal canal stenosis and orthopedic spine is consulted. He was taken for surgery yesterday but upon being intubated he went into Afib with RVR and the surgery was aborted. He was placed on Heparin drip for a few days. Underwent surgery on 08/31/24 and is now resumed on home med Dabigatran. Active: #. Spinal canal stenosis at C3-4, C4-5, L4-5 #. S/p ACDF C3-C7 on 08/31/24 #. Right sided weakness #. Acute ischemic infarct of the right frontal lobe, asymptomatic #. Small patent riley ovale #. Leukocytosis, likely steroid induced Brain MRI shows acute 2 mm lacunar infarct posterior right frontal lobe along the premotor cortex Cervical and lumbar spine MRI shows central stenosis with cervical spinal cord compressive myelopathy at C3-4 and C4-5, extruded disc herniation noted at C7- T1, severe central stenosis at L4-5, multilevel degenerative disc disease ACDF C3-C7 cancelled once on 08/27/24 post induction due to patient going into Afib RVR Continue atorvastatin 80 mg p.o. daily Solumedrol changed to Prednisone 40 mg PO daily, discussed with surgery Continue Rodri Delgado for pain management per primary surgical team along with Senokot for constipation Continue telemetry monitoring Fall precautions Neurochecks every 4 hours Neurology is following, recommend deferring modification of steroid to Orthopedic team Orthopedic spine surgery is following,Will pull drain either later today or first thing tomorrow morning PT,recomends could benefit from JACQUIE to increase strength and fucntional moiblity. Will re-asess d/c recs pending progress. OT recommends rehab at discharge as pt is needing increased assist with BADL's compared to baseline and initial OT eval. #. Atrial fibrillation with RVR Patient complained of left arm pain yesterday EKG independently interpreted as Afib with RVR, rate 109 bpm Continue Metoprolol tartrate to 50 mg PO BID Home med Pradaxa 150 mg BID resumed Continue telemetry monitoring Cardiology is following, recommend resuming Pradaxa 150 mg BID #. HFrEF with EF 40-45% Consider the addition of SGLT2 inhibitor after surgery on outpatient basis Cardiology is following #. Hyperglycemia, likely secondary to steroids Patient refusing sliding scale He took his home med Ozempic on 08/28/24 at approximately 1600 Monitor for hypoglycemia #. Hip pain secondary to fall due to weakness Hip and Pelvix Xray showed no acute osseous abnormalities Home med tramadol 100 mg p.o. twice daily resumed #. Constipation Senokot added Continue MiraLAX #. Anxiety Xanax 1 mg PO BID PRN Chronic: #. GERD #. Hyperlipidemia #. CAD #. Neuropathy #. Insomnia Continue Protonix 40 mg at bedtime, atorvastatin 80 mg daily, Furosemide 20 mg PO BID, Pregabalin 100 mg PO TID, melatonin 5 mg p.o. at bedtime as needed, fluticasone nasal spray F: LR at 20 ml/hr E: Replete as needed N: Regular diet A: Increase ambulation as tolerated, No lifting, bending, twisting, pushing, or pulling greater than 10 lbs DVT prophylaxis: Pradaxa 150 mg PO BID GI prophylaxis: Protonix 40 mg PO HS Code status: Full Code Anticipated discharge place: Anticipate discharge to subacute rehab Anticipated discharge time: Likely 24-48 hours Dictation was produced using [employer] dictation software. please excuse any grammatical, word or spelling errors. Cassius Bahena MD PGY-1 IM I have seen and evaluated the patient today. Discussed with the resident and agree with the residents finding and plan as documented in the resident's note. Changes highlighted in blue font. Objective - Vital Signs Vital signs: Vital Signs Temp 97.6 F 09/02/24 00:56 Pulse 90 09/02/24 00:56 Resp 20 09/02/24 00:56 BP 148/88 09/02/24 00:56 Pulse Ox 94 L 09/02/24 00:56 FiO2 Intake & Output 09/01/24 09/02/24 09/02/24 18:59 06:59 18:59 Output Total 1500 Balance -1500 Weight 126.5 kg Output: Urine 1500 Stool 0 Other: Voiding Method Indwelling Catheter # Voids 900 1 - Labs CBC & Chem 7: 09/01/24 02:59 09/01/24 02:59
--- NOTE | 2024-09-02 12:20 | P.PN ---
Subjective HISTORY OF PRESENT ILLNESS: This is a 78-year-old male patient with past medical history of chronic atrial fibrillation on Eliquis, chronic systolic heart failure, diabetes mellitus type 2, hyperlipidemia. Patient states that he came into the hospital due to dizziness and weakness on the right side of his body. He states he saw chiropractor last Saturday but his states that he was having difficulty he had to require wheelchair to get him to the car. Patient has seen a tandem operator in the past and the last time was 6 years ago in [place] prior to knee surgery. He apparently had a stress test done at that time which he reports is normal. Patient has seen Dr. Carrillo in the past in 2012 with no follow-up. Patient states that he is not very active. When he is active he does not have chest pain. No shortness of breath. Patient recently has been off Eliquis because his ortiz went from $18-$490 per month. Patient presented to the hospital on 08/21. He had significant workup done which found severe cervical stenosis. Patient has been started on IV steroids and is scheduled for surgery today with Dr. Lagos. Patient's last dose of Eliquis was on 08/26 AM. -EKG: Atrial fibrillation with RVR 109 bpm obtained on 08/26. -Chest x-ray: Mild cardiomegaly. Interstitial prominence may be technical due to technique body habitus. -Laboratory studies: -Home cardiac medications: Lasix 20 mg twice daily, metoprolol succinate 25 mg daily, pravastatin 20 mg at bedtime. -Echocardiogram performed at [facility] on 08/21/2024 revealed EF 40 to 45%. Moderate RV enlargement. Biatrial enlargement. No [id number] shunting noted on bubble study. Left or right Doppler flow signal suggest small PFO with [id number] shunt. 09/01/2024 Patient examined this morning at the bedside. Patient is status post cervical surgery with Dr. Lagos. Patient is currently sitting up in the chair. Patient denies any chest pain or pressure. He denies shortness of breath. Vital signs are stable. 09/02/2024 Patient examined this morning. He is sitting up in the chair. Patient denies chest pain or pressure. Denies shortness of breath. Vital signs are stable. PHYSICAL EXAM: VITAL SIGNS: Reviewed. GENERAL: Well-developed in no acute distress. NECK: Supple. No JVD or thyromegaly LUNGS: Respirations even and unlabored. Lungs essentially clear to auscultation bilaterally. HEART: Irregular rate and rhythm. S1 and S2 heard. EXTREMITIES: Normal range of motion. No clubbing or cyanosis. Peripheral pulses intact. No lower extremity edema ASSESSMENT: Cervical spine stenosis status post surgical intervention MRI revealed lacunar infarct posterior right frontal lobe likely clinically asymptomatic, not confirmed on MRI and neurology feels symptoms due to severe cervical stenosis with myelopathy Persistent atrial fibrillation Diabetes Coronary artery disease Chronic systolic heart failure Poor functional capacity PLAN: Continue current cardiac medications including Lipitor, Pradaxa, and metoprolol Patient is currently stable from a cardiac standpoint We will sign off. Please reconsult if needed. Nurse practitioner note has been reviewed by physician. Signing provider agrees with the documented findings, assessment, and plan of care documented by [employer] as a scribe. Objective - Vital Signs Vital signs: Vital Signs Temp 97.4 F L 09/02/24 08:00 Pulse 71 09/02/24 08:00 Resp 16 09/02/24 08:00 BP 156/92 09/02/24 08:00 Pulse Ox 93 L 09/02/24 08:00 FiO2 Intake & Output 09/01/24 09/02/24 09/02/24 18:59 06:59 18:59 Output Total 1500 500 Balance -1500 -500 Weight 126.5 kg Output: Urine 1500 500 Uretheral (Cuadra) 500 Stool 0 Other: Voiding Method Indwelling Catheter Indwelling Catheter # Voids 900 1 - Labs CBC & Chem 7: 09/01/24 02:59 09/01/24 02:59
[2024-09-03 04:03] LABS: HCT 40.8 % (39.6-50.0); MCH 32.5 pg (27.0-32.0); MCHC 36.8 g/dL (32.0-37.0); MCV 88.5 fL (80.0-97.0); Mean Platelet Volume 11.2 fL (9.5-12.2); Platelet Count 160 10*3/uL (140-440); RBC 4.61 10*6/uL (4.40-5.60); RDW 12.6 % (11.5-14.5); WBC 13.34 10*3/uL (4.50-10.00)
[2024-09-03 04:51] LABS: African American GFR (CKD) >90 (>60 ml/min/1.73 sqM); Anion Gap 5 mmol/L; Blood Urea Nitrogen 30 mg/dL (9-20); Calcium 8.1 mg/dL (8.4-10.2); Carbon Dioxide 30 mmol/L (22-30); Chloride 100 mmol/L (98-107); Glucose 245 mg/dL (74-99); Non-African American GFR(CKD) >90 (>60 ml/min/1.73 sqM); Sodium 135 mmol/L (137-145)
[2024-09-03] MEDS: predniSONE 20 MG TAB PO SCH (08:01)
[2024-09-03] MEDS: ARTIFICIAL TEARS-HYPROMELLOSE DROPS 15 ML BTL BOTH EYES PRN (08:02)
--- NOTE | 2024-09-03 09:53 | P.PN ---
Subjective Progress Note Date: 09/03/24 Principal diagnosis: Bilateral upper and lower extremity weakness, cervical myelopathy, severe spondylosis with stenosis Patient was evaluated today at bedside, he is resting sitting up in his hospital chair. Patient is feeling a little bit better today. He has been urinating just fine since removal of the catheter yesterday. The anterior drain is not putting out any excessive output. He feels that the arms are moving a little bit better. He continues to have weakness with the lower extremities. Patient denies any headaches, lightheadedness, chest pain or shortness of breath Objective - Vital Signs Vital signs: Vital Signs Temp 97.7 F 09/03/24 06:47 Pulse 64 09/03/24 06:47 Resp 18 09/03/24 06:47 BP 132/86 09/03/24 06:47 Pulse Ox 95 09/03/24 06:47 FiO2 Intake & Output 09/02/24 09/03/24 09/03/24 18:59 06:59 18:59 Output Total 1000 Balance -1000 Weight 118 kg Output: Urine 1000 Uretheral (Cuadra) 500 Other: Voiding Method Indwelling Catheter Toilet Bedside Commode Urinal - Exam Gen: AOx3, NAD VSS stable at this time Integument: Cervical incision is well-healing, bandage and drain are in good position. Drain was removed today at bedside Palpation: Mild tenderness with palpation to the paraspinal cervical and lumbar region ROM: Left upper extremity left lower extremity demonstrate full range of motion in all major muscle groups, no focal deficits appreciated Right upper extremity patient has difficulty with shoulder elevation along with finger intrinsics. Right lower extremity demonstrates difficulty with hip flexion Sensory Exam: Senory exam to light touch is intact C5-T1 Senosry exam to light touch is intact L2-S1 Motor: Left upper extremity-shoulder elevation 4+/5, biceps/triceps 4+/5, wrist extension/wrist flexion 4/5, finger intrinsics 4/5 Right upper extremity-shoulder elevation 3+/5, biceps/triceps 4-/5, wrist extension/wrist flexion 4-/5, finger intrinsics 3+/5 Left lower extremityhip flexion 4 -/5, knee extension/knee flexion 4-/5, pl antarflexion/dorsiflexion 5/5 EHL/FHL 5/5 Right lower extremity-hip flexion 4-/5, knee extension/knee flexion 4-/5, plantarflexion/dorsiflexion 5/5, EHL/FHL 5/5 Reflexes: Positive Michael's bilaterally, right worse than left Positive clonus bilaterally 23 beats Special Test: Logroll maneuver reproduces no groin pain - Labs CBC & Chem 7: 09/03/24 03:42 09/03/24 03:42 Labs: Abnormal Lab Results - Last 24 Hours (Table) 09/03/24 09/03/24 Range/Units 03:42 03:42 WBC 13.34 H (4.50-10.00) 10*3/uL MCH 32.5 H (27.0-32.0) pg Sodium 135 L (137-145) mmol/L BUN 30 H (9-20) mg/dL Creatinine 0.59 L (0.66-1.25) mg/dL Glucose 245 H (74-99) mg/dL Calcium 8.1 L (8.4-10.2) mg/dL Assessment and Plan Assessment: Postoperative day #3 status post ACDF C3C6 Bilateral upper extremity weakness, right worse than left Bilateral lower extremity weakness, right worse than left Cervical myelopathy Multilevel cervical spondylosis Cervical stenosis, significant levels C3-C4, C4-C5 C7-T1 HNP Multilevel lumbar spondylosis Lumbar spinal stenosis L4-L5 Plan: Pain control, continue current medications Diabetic diet DVT prophylaxis, continue current medication PT/OT Cervical hard collar at all times, weight-bear as tolerated with Walke Other medical specialty recommendations appreciated Monitor surgical dressing Discharge planning: Anticipate discharge to subacute rehab on 09/04/2024 Time with Patient: Less than 30
--- NOTE | 2024-09-03 13:28 | P.PN ---
Subjective Progress Note Date: 09/03/24 Principal diagnosis: 08/24/24: Patient seen and examined at bedside today. He complains of pain on the right hip from a fall he sustained a few days ago when he started having the lower extremity weakness. Denies any other complaints. No acute events over night. 08/25/24: Patient evaluated at bedside. No acute events overnight. He feels that his right upper extremity is more weak today and reports pain in the right buttock area from the fall. 08/26/24: Patient seen and examined today at bedside. He reports improvement in his left hand numbness, but feels his right hand is still weak. He also reports lower back pain above his right buttock. He mentions not having a bowel movement in 2-3 days. 08/27/24: Patient evaluated today. Patient maintained. N.p.o. after midnight for surgery today. He is anxious today due to the surgery. He reports not having a bowel movement yet. 08/28/24: Patient seen and examined at bedside today. He was taken for surgery yesterday but upon being intubated he went into Afib with RVR and the surgery was aborted. He is now in the ICU, being transferred to . He denies chest pain, palpitations. 08/29/24: Patient evaluated at bedside today. No acute events overnight. He had a bowel movement yesterday. He took his home med Ozempic and is refusing insulin sliding scale. 08/30 Patient was seen and examined. Nervous about upcoming surgery. Persistent RU and RLE weakness. Maintained on heparin drip at 10.926 units/kg/hr. CBC and Coag panel shows WBC 10.47, RBC 4.29, Hct 38.9, APTT 54.6. 08/31/24: Patient evaluated today. He was maintained NPO overnight and will undergo surgery today. Patient is anxious about the surgery. 09/01/24: Patient seen and examined at bedside today on the med surg floor. He reports residual right upper and lower extremity weakness. He has not had a bowel movement today. 09/02/24: Patient evaluated at bedside. He reports improvement in his weakness. He mentions having regular bowel movements. 09/03/24: Patient seen and examined at bedside today. He denies any acute complaints. Review of systems: Pertinent positives and negatives as discussed in HPI, a complete review of systems was performed and all other systems are negative. Vitals: Signs Reviewed and stable, pulse 101 Physical examination: General: nontoxic, no distress, appears at stated age Derm: warm, dry, intact Head: atraumatic, normocephalic, symmetric Eyes: EOMI, anicteric sclera Mouth: no lip lesion, mucus membranes moist Cardiovascular: S1 S2 reg, no murmur Lungs: CTA bilateral, no rhonchi, no rales, no accessory muscle use Abdominal: soft, non-tender to palpataion Extremities: 1+ pitting edema b/l LE, No cyanosis, clubbing Neuro: Alert, Oriented, Right upper and lower extremity strength 4 out of 5, Left upper and lower extremity strength 5 out of 5, Sensation to light touch similar on both upper and lower extremity. Psych: Anxious Data Reviewed Today: Labs: WBC 13.34, sodium 135, BUN 30, glucose 245 Imaging: No new imaging Assessment/Plan: Patient is 78-year-old male with a history of coronary artery disease, chest pain, heart failure presents to the ER with right sided arm and leg numbness over the past 10 days. Patient found to have cervical spinal canal stenosis and orthopedic spine is consulted. He was taken for surgery yesterday but upon being intubated he went into Afib with RVR and the surgery was aborted. He was placed on Heparin drip for a few days. Underwent surgery on 08/31/24 and is now resumed on home med Dabigatran. Active: #. Spinal canal stenosis at C3-4, C4-5, L4-5 #. S/p ACDF C3-C7 on 08/31/24 #. Right sided weakness #. Acute ischemic infarct of the right frontal lobe, asymptomatic #. Small patent riley ovale #. Leukocytosis, likely steroid induced Brain MRI shows acute 2 mm lacunar infarct posterior right frontal lobe along the premotor cortex Cervical and lumbar spine MRI shows central stenosis with cervical spinal cord compressive myelopathy at C3-4 and C4-5, extruded disc herniation noted at C7- T1, severe central stenosis at L4-5, multilevel degenerative disc disease ACDF C3-C7 cancelled once on 08/27/24 post induction due to patient going into Afib RVR Continue atorvastatin 80 mg p.o. daily Continue Prednisone 40 mg PO daily, and prednisone taper upon discharge Continue Dialudid, Spray for pain management per primary surgical team along with Senokot for constipation Continue telemetry monitoring Fall precautions Neurochecks every 4 hours Neurology is following, recommend deferring modification of steroid to Orthopedic team Orthopedic spine surgery is following, recommend Cervical hard collar at all times, weight-bear as tolerated with Walker,Monitor surgical dressing PT,recomends could benefit from JACQUIE to increase strength and fucntional moiblity. OT recommends rehab at discharge as pt is needing increased assist with BADL's compared to baseline and initial OT eval. #. Atrial fibrillation with RVR Patient complained of left arm pain yesterday EKG independently interpreted as Afib with RVR, rate 109 bpm Continue Metoprolol tartrate to 50 mg PO BID Home med Pradaxa 150 mg BID resumed Continue telemetry monitoring Cardiology is following, recommend resuming Pradaxa 150 mg BID #. HFrEF with EF 40-45% Consider the addition of SGLT2 inhibitor after surgery on outpatient basis Cardiology is following #. Hyperglycemia, likely secondary to steroids Patient refusing sliding scale He took his home med Ozempic on 08/28/24 at approximately 1600 Monitor for hypoglycemia #. Hip pain secondary to fall due to weakness Hip and Pelvix Xray showed no acute osseous abnormalities Home med tramadol 100 mg p.o. twice daily resumed #. Constipation Senokot added Continue MiraLAX #. Anxiety Xanax 1 mg PO BID PRN Chronic: #. GERD #. Hyperlipidemia #. CAD #. Neuropathy #. Insomnia Continue Protonix 40 mg at bedtime, atorvastatin 80 mg daily, Furosemide 20 mg PO BID, Pregabalin 100 mg PO TID, melatonin 5 mg p.o. at bedtime as needed, fluticasone nasal spray F: LR at 20 ml/hr E: Replete as needed N: Regular diet A: Weight-bear as tolerated with Walker DVT prophylaxis: Pradaxa 150 mg PO BID GI prophylaxis: Protonix 40 mg PO HS Code status: Full Code Anticipated discharge place: Subacute rehab Anticipated discharge time: Tomorrow Dictation was produced using [employer] dictation software. please excuse any grammatical, word or spelling errors. Cassius Bahena MD PGY-1 IM I have seen and evaluated the patient today. Discussed with the resident and agree with the residents finding and plan as documented in the resident's note. Changes highlighted in blue font. Objective - Vital Signs Vital signs: Vital Signs Temp 98.1 F 09/03/24 02:14 Pulse 101 H 09/03/24 02:14 Resp 20 09/03/24 02:14 BP 143/88 09/03/24 02:14 Pulse Ox 95 09/03/24 02:14 FiO2 Intake & Output 09/02/24 09/03/24 09/03/24 18:59 06:59 18:59 Output Total 1000 Balance -1000 Weight 118 kg Output: Urine 1000 Uretheral (Cuadra) 500 Other: Voiding Method Indwelling Catheter Toilet Bedside Commode Urinal - Labs CBC & Chem 7: 09/03/24 03:42 09/03/24 03:42 Labs: Abnormal Lab Results - Last 24 Hours (Table) 09/03/24 09/03/24 Range/Units 03:42 03:42 WBC 13.34 H (4.50-10.00) 10*3/uL MCH 32.5 H (27.0-32.0) pg Sodium 135 L (137-145) mmol/L BUN 30 H (9-20) mg/dL Creatinine 0.59 L (0.66-1.25) mg/dL Glucose 245 H (74-99) mg/dL Calcium 8.1 L (8.4-10.2) mg/dL
--- NOTE | 2024-09-03 15:29 | P.PN ---
Subjective Progress Note Date: 09/03/24 I am following up with the patient and he had cervical surgery and he states she has more strength and as a hands and feels overall stronger but not back to baseline. The patient had surgery on 08/31/2024. Objective - Vital Signs Vital signs: Vital Signs Temp 97.7 F 09/03/24 14:21 Pulse 99 09/03/24 14:21 Resp 18 09/03/24 14:21 BP 128/85 09/03/24 14:21 Pulse Ox 99 09/03/24 14:21 FiO2 Intake & Output 09/02/24 09/03/24 09/03/24 18:59 06:59 18:59 Output Total 1000 Balance -1000 Weight 118 kg Output: Urine 1000 Uretheral (Cuadra) 500 Other: Voiding Method Indwelling Catheter Toilet Bedside Commode Urinal # Voids 2 - Exam General: Sitting in a recliner chair and is not in acute distress. HENT: Cervical collar. Neuro: The patient is awake, alert, oriented to self, place and time. Is following simple commands. No aphasia. No facial weakness. No dysthria. Motor: Bilateral hand consultant teacher 4+. Otherwise, lifting all extremities above gravity equally and seems strong. - Labs CBC & Chem 7: 09/03/24 03:42 09/03/24 03:42 Labs: Abnormal Lab Results - Last 24 Hours (Table) 09/03/24 09/03/24 Range/Units 03:42 03:42 WBC 13.34 H (4.50-10.00) 10*3/uL MCH 32.5 H (27.0-32.0) pg Sodium 135 L (137-145) mmol/L BUN 30 H (9-20) mg/dL Creatinine 0.59 L (0.66-1.25) mg/dL Glucose 245 H (74-99) mg/dL Calcium 8.1 L (8.4-10.2) mg/dL Assessment and Plan Assessment: * Cervical myleopathy s/p ACD C3-C6 * Weakness of upper and lowers due to above--feels stronger after surgery * Atrial fibrillation * Diabetes * History of rheumatic fever/scarlet fever as a child. * Coronary artery disease * Congestive heart failure. * Chronic low back pain, right shoulder pain, likely due to above. Plan: MRI of the brain without contrast, revealed subtle acute 2 mm lacunar infarct posterior right frontal lobe along the premotor cortex. I personally reviewed MRI, agree with the findings. It appears this stroke is clinically asymptomatic because symptoms are also on the ipsilateral side. I reviewed MRI and feel ADC and DWI do not correlate and unsure if truly stroke vs artifact. Can consider ASA 81mg daily if not on anticoagulation. MRI of the lumbar spine revealed multilevel degenerative disc disease. Severe central canal stenosis at L4-5. I personally reviewed MRI, agree with the findings. MRI of the cervical spine revealed multilevel degenerative disc disease. Central stenosis with thinning of the cervical spinal cord and compressing myelopathy at C3-4 and C4-5. Extruded disc herniation is noted at C7 and T1. I personally reviewed MRI, agree with the findings. Orthopedic spine surgery is on board Patient states his symptoms have got worse today after PT/OT and MRIs. 2-D echo revealed increased LV mass with left ventricular systolic function of 40 to 45%. Moderate concentric LVH, moderate RV enlargement, biatrial enlargement. No etjac-av-smya shunting noted on bubble study. Moderately increased left atrial diameter. No left atrial thrombus or mass. However in the impression it mentions left or right Doppler flow signal suggest small PFO with [id number] shunt. . No mitral valve stenosis. Carotid Doppler revealed no hemodynamically significant stenosis on either side. Antegrade flow in both vertebral arteries. Fasting a.m. lipid panel cholesterol 149, LDL 81, HDL 39, triglycerides 139. Patient placed on Lipitor 80 mg daily. At home patient was on pravastatin 20 mg. Hemoglobin A1c 5.8, well-controlled. Optimize control of blood pressure. B12 377, folate 6.70, MMA, 0.84 B6 2 and I started him on Pyridoxine 50mg daily. Will defer use of anticoagulation to primary team and cardiology team. Cardiology is consulted. Neuro checks every 4 hours. Otherwise, no additional neurological work-up. Will sign off. Please reconsult if needed. Time with Patient: Less than 30
[2024-09-03] MEDS: PYRIDOXINE 50 MG TAB PO SCH (16:29)
[2024-09-04 05:49] LABS: HCT 40.2 % (39.6-50.0); HGB 14.7 g/dL (13.0-17.0); Immature Platelet Fraction 9.6 % (1.1-6.1); MCH 32.7 pg (27.0-32.0); MCHC 36.6 g/dL (32.0-37.0); MCV 89.3 fL (80.0-97.0); Mean Platelet Volume 11.8 fL (9.5-12.2); Platelet Count 139 10*3/uL (140-440); RDW 12.8 % (11.5-14.5); WBC 11.07 10*3/uL (4.50-10.00)
[2024-09-04 06:14] LABS: African American GFR (CKD) >90 (>60 ml/min/1.73 sqM); Anion Gap 5 mmol/L; Blood Urea Nitrogen 26 mg/dL (9-20); Calcium 7.8 mg/dL (8.4-10.2); Carbon Dioxide 28 mmol/L (22-30); Chloride 101 mmol/L (98-107); Glucose 196 mg/dL (74-99); Non-African American GFR(CKD) >90 (>60 ml/min/1.73 sqM); Potassium 3.8 mmol/L (3.5-5.1); Sodium 134 mmol/L (137-145)
[2024-09-04 08:39] VITALS: BP 110/73; PULSE 82; RESP 16; TEMP 97.6
--- NOTE | 2024-09-04 10:46 | P.DS ---
Providers Date of admission: 08/21/24 15:26 Expected date of discharge: 09/04/24 Attending physician: Vladimir Alvarez Consults: 08/21/24 15:26 Consult Physician Urgent Consulting Provider: Valerie Sandra Consult Reason/Comments: R leg weak Do you want consulting provider notified?: Yes 08/25/24 14:25 Consult Physician Routine Consulting Provider: Latrell Lagos Consult Reason/Comments: Cervical spinal stenosis Do you want consulting provider notified?: Yes [facility] Course: Discharge diagnosis: #. Spinal canal stenosis at C3-4, C4-5, L4-5 #. S/p ACDF C3-C7 on 08/31/24 #. Right sided weakness #. Acute ischemic infarct of the right frontal lobe, asymptomatic #. Small patent riley ovale #. Leukocytosis, likely steroid induced #. Atrial fibrillation with RVR #. HFrEF with EF 40-45% #. Hyperglycemia, likely secondary to steroids #. Hip pain secondary to fall due to weakness #. Constipation #. Anxiety #. GERD #. Hyperlipidemia #. CAD #. Neuropathy #. Insomnia Hospital Course: Patient is a 78-year-old male with a history of coronary artery disease, chest p ain and heart failure presents to the ER with right-sided arm and leg numbness over the past 10 days. Patient also reports some heaviness as well. Patient was seen at bedside. He reports right-sided arm and leg numbness that started about 10 days ago and it has gotten progressively worse over the past few days. Patient did recently recover from an upper respiratory infection about 2 weeks ago. He also reports right lower extremity heaviness and weakness and has difficulty moving his right leg. Initial workup in the ED showed Vitals on admission temperature 97.8, pulse rate 79, respiratory rate 18, blood pressure 112/73, O2 sat 95% on room air. CXR shows mild cardiomegaly and interstitial prominence may be technical due to AP technique and large body habitus. Correlate to exclude mild pulmonary vascular congestion.. CT of brain shows no acute intracranial process. Ultrasound of bilateral carotids showed no hemodynamically significant stenosis in the right or left carotids. At that point patient was started on aspirin 80 mg, Protonix 40 mg, statin 80 mg with consult for neurology. Further workup involved getting an echocardiogram that showed small PFO, mild cardiomyopathy EF 40 to 45%. Brain MRI shows acute 2 mm lacunar infarct posterior right frontal lobe along the premotor cortex. He had right sided asymptomatic stroke. Cervical and lumbar spine MRI shows central stenosis with cervical spinal cord compressive myelopathy at C3-4 and C4-5, extruded disc herniation noted at C7-T1, severe central stenosis at L4-5, multilevel degenerative disc disease. Orthopedic surgery was consulted. Patient was taken for surgery initially on 08/27/2024 but the surgery was aborted as the patient went into A-fib with RVR post induction. He was placed on heparin drip for a few days. He then underwent ACDF C3-C7 on 08/31/2024. The drain was removed on 09/03/2024. Patient worked with physical therapy after the surgery. Patient has been optimized for discharge to rehab. Patient seen at bedside today and is feeling good and excited about discharge. Patient will be discharged today and is given a script for Pradaxa, Lipitor, metoprolol, pyridoxine, prednisone, Senokot, aspirin Patient is given a handout for Cervical spinal canal stenosis and is advised to be compliant with medications. Patient is advised to follow-up with PCP in 1-2 days, garnett feeder in 1 week. Vital signs are reviewed and stable General: nontoxic, no distress, appears at stated age Derm: warm, dry, intact Head: atraumatic, normocephalic, symmetric Eyes: EOMI, anicteric sclera Mouth: no lip lesion, mucus membranes moist Cardiovascular: S1 S2 reg, no murmur Lungs: CTA bilateral, no rhonchi, no rales, no accessory muscle use Abdominal: soft, non-tender to palpataion Extremities: 1+ pitting edema b/l LE, No cyanosis, clubbing Neuro: Alert, Oriented, Right upper and lower extremity strength 4 out of 5, Left upper and lower extremity strength 5 out of 5, Sensation to light touch similar on both upper and lower extremity. Psych: Anxious A total of 30 minutes of time were spent preparing this complex discharge summary. Patient was discharged on 09/04/24 at 0927. Dictation was produced using [employer] dictation software. please excuse any grammatical, word or spelling error Cassius Bahena MD PGY-1 IM I have seen and evaluated the patient today. Discussed with the resident and agree with the residents finding and plan as documented in the resident's note. Changes highlighted in blue font. Patient Condition at Discharge: Stable Plan - Discharge Summary New Discharge Prescriptions: New Dabigatran [Pradaxa] 150 mg PO BID #180 capsule Atorvastatin [Lipitor] 80 mg PO DAILY #0 tab Metoprolol Tartrate [Lopressor] 50 mg PO BID #0 tab Pyridoxine [Vitamin B-6] 50 mg PO DAILY #0 tab predniSONE [Deltasone] See Rx Instructions .ROUTE .COMPLEX tab Sennosides-Docusate Sodium [Senokot-S] 2 each PO DAILY tab Aspirin 81 mg PO DAILY #10 tab Continue Omeprazole 40 mg PO HS Fluticasone Nasal [place] [Flonase Nasal [place]] 2 spr EA NOSTRIL DAILY Semaglutide [Ozempic] 1 injection SQ WEEKLY HYDROcodone/APAP 7.5-325MG [Acme 7.5-325] 1 tab PO BID PRN #6 tab PRN Reason: Pain Furosemide [Lasix] 20 mg PO BID-W/MEALS Benzonatate [Tessalon Perles] 100 mg PO TID PRN PRN Reason: Cough Pregabalin [Lyrica] 100 mg PO TID #9 cap traMADol HCL 100 mg PO BID #6 tab Discontinued Meloxicam [Mobic] 15 mg PO DAILY Metoprolol Succinate (ER) [Toprol Xl] 25 mg PO DAILY Pravastatin Sodium [Pravachol] 20 mg PO HS Discharge Medication List Benzonatate [Tessalon Perles] 100 mg PO TID PRN 08/21/24 [History] Fluticasone Nasal [place] [Flonase Nasal [place]] 2 spr EA NOSTRIL DAILY 08/21/24 [History] Furosemide [Lasix] 20 mg PO BID-W/MEALS 08/21/24 [History] Omeprazole 40 mg PO HS 08/21/24 [History] Dabigatran [Pradaxa] 150 mg PO BID #180 capsule 08/27/24 [Rx] Semaglutide [Ozempic] 1 injection SQ WEEKLY 08/31/24 [History] Aspirin 81 mg PO DAILY #10 tab 09/04/24 [Rx] Atorvastatin [Lipitor] 80 mg PO DAILY #0 tab 09/04/24 [Rx] HYDROcodone/APAP 7.5-325MG [Acme 7.5-325] 1 tab PO BID PRN #6 tab 09/04/24 [Rx] Metoprolol Tartrate [Lopressor] 50 mg PO BID #0 tab 09/04/24 [Rx] Pregabalin [Lyrica] 100 mg PO TID #9 cap 09/04/24 [Rx] Pyridoxine [Vitamin B-6] 50 mg PO DAILY #0 tab 09/04/24 [Rx] Sennosides-Docusate Sodium [Senokot-S] 2 each PO DAILY tab 09/04/24 [Rx] predniSONE [Deltasone] See Rx Instructions .ROUTE .COMPLEX tab 09/04/24 [Rx] traMADol HCL 100 mg PO BID #6 tab 09/04/24 [Rx] Follow up Appointment(s)/Referral(s): Andres Marshall MD [STAFF PHYSICIAN] - 1 Week (Office is not answering at time of discharge. Please call for follow-up appointment.) [facility] [NON-STAFF] - As Needed Victorino Medrano DO [Primary Care Provider] - 1-2 days ([facility] please call for follow-up appointment.) Patient Instructions/Handouts: Cervical Spinal Stenosis (GEN) Discharge Disposition: TRANSFER TO SNF/ECF
== END 2024-09-04 13:06 | DRG 471 ==
LOC: EC 11:46 → 6NMEDSUR 15:25 → OBSVTOIN 15:26 → EEVIPCON 15:26 → 6NMEDSUR 16:08 → 2SICU 08-27 13:21 → 3SCARD 08-30 07:20 → 4SSUR 09-01 00:11
PROVIDERS: ADMIT Student in an Organized Health Care Education/Training Program; ATTEND Student in an Organized Health Care Education/Training Program
PROC: 0RT30ZZ Resection of Cervical Vertebral Disc, Open Approach (ICD-10-PCS; 2024-08-31)
PROC: 0RG20A0 Fusion of 2 or more Cervical Vertebral Joints with Interbody Fusion Device, Anterior Approach, Anterior Column, Open Approach (ICD-10-PCS; principal; 2024-08-31 12:00)
DX: M50.01 Cervical disc disorder with myelopathy, high cervical region (principal); I63.81 Other cerebral infarction due to occlusion or stenosis of small artery; G82.20 Paraplegia, unspecified; G95.89 Other specified diseases of spinal cord; I50.22 Chronic systolic (congestive) heart failure; I11.0 Hypertensive heart disease with heart failure; I48.19 Other persistent atrial fibrillation; Q21.12 Patent foramen ovale; E11.65 Type 2 diabetes mellitus with hyperglycemia; E11.42 Type 2 diabetes mellitus with diabetic polyneuropathy; M48.02 Spinal stenosis, cervical region; M43.12 Spondylolisthesis, cervical region; M50.03 Cervical disc disorder with myelopathy, cervicothoracic region; I25.10 Atherosclerotic heart disease of native coronary artery without angina pectoris; K21.9 Gastro-esophageal reflux disease without esophagitis; T38.0X5A Adverse effect of glucocorticoids and synthetic analogues, initial encounter; M51.369 Other intervertebral disc degeneration, lumbar region without mention of lumbar back pain or lower extremity pain; M48.062 Spinal stenosis, lumbar region with neurogenic claudication; K59.00 Constipation, unspecified; F41.9 Anxiety disorder, unspecified; G47.00 Insomnia, unspecified; M47.816 Spondylosis without myelopathy or radiculopathy, lumbar region; M48.061 Spinal stenosis, lumbar region without neurogenic claudication; D72.828 Other elevated white blood cell count; E78.00 Pure hypercholesterolemia, unspecified; I25.5 Ischemic cardiomyopathy; Z53.8 Procedure and treatment not carried out for other reasons; Z79.1 Long term (current) use of non-steroidal anti-inflammatories (NSAID); W19.XXXA Unspecified fall, initial encounter; Z79.899 Other long term (current) drug therapy; I25.2 Old myocardial infarction; Z79.85 Long-term (current) use of injectable non-insulin antidiabetic drugs; R29.6 Repeated falls; Z91.81 History of falling
CPT/HCPCS: 36415; 70450; 70551; 71046; 72040; 72125; 72141; 72148; 73502; 80048; 80053; 80061; 82550; 82607; 82746; 83036; 83735; 83921; 84207; 84443; 84484; 85025; 85027; 85610; 85730; 86850; 86900; 86901; 93005; 93306; 93880; 99285